=== PATIENT | female | born 1960 | race Caucasian/White ===

== ENCOUNTER 2016-11-15 21:39 | Inpatient (IN) | payer MEDICAID ==
--- NOTE | 2016-11-15 22:19 | ED Physician Chart ---
Chief Complaint/HPI - Patient Information Date Seen:: 11/15/16 Time Seen:: 22:00 Chief Complaint:: cough History of Present Illness:: onset x one day of cough and congestion; no H/As, Neck Pain, C/P, SOB, Abd. Pain , A/N/V/D/C, fever, chills, or urinary s/s Allergies:: Allergies Allergy/AdvReac Type Severity Reaction Status Date / Time No Known Allergies Allergy Verified 11/15/16 22:11 Historian:: Patient, EMS, Medical Records Review:: Nurse's Note Reviewed, Old Chart Reviewed, EMS run form Reviewed Review of Systems - Review of Systems General/Constitutional: Fever, Chills, No weight loss, No weakness, No diaphoresis, No edema, No loss of appetite Skin: No skin lesions, No rash, No bruising Head: No headache, No light-headedness Eyes: No loss of vision, No pain, No diplopia ENT: No earache, Nasal drainage, No sore throat, No tinnitus Neck: No neck pain, No swelling, No thyromegaly, No stiffness, No mass noted Cardio Vascular: No chest pain, No palpitations, No PND, No orthopnea, No edema Pulmonary: No SOB, Cough, No sputum, No wheezing GI: Nausea, Vomiting, Diarrhea, No pain, No melena, No hematochezia, Constipation, No hematemesis G/U: No dysuria, No frequency, No hematuria [employer]: No vaginal discharge, No abnormal vaginal bleed, No contraction Musculoskeletal: No bone or joint pain, No back pain, No muscle pain Endocrine: No polyuria, No polydipsia Psychiatric: No prior psych history, No depression, No anxiety, No suicidal ideation Hematopoietic: No bruising, No lymphadenopathy Allergic/Immuno: No urticaria, No angioedema Neurological: No syncope, No focal symptoms, No weakness, No paresthesia, No headache, No seizure, No dizziness, No confusion, No vertigo Past Medical History - Past Medical History Obtainable: Yes Past Medical History: HTN, CVA/TIA, Dyslipidemia, Other (anemia) Family History: Diabetes Melitus, HTN Social History: Non Smoker, No Alcohol, No Drug Use, Single, Care Facility Surgical History: None Psychiatricy History: Schizophrenia Medication: Reviewed Family Medical History - Family Member Mother History Unknown: Yes Physical Exam - Physical Examination General/Constitutional: Awake, Well-developed, well-nourished, Alert, No distress, GCS 15, Non-toxic appearing, Ambulatory Head: Atraumatic Eyes: Lids, conjuctiva normal, PERRL, EOMI Skin: Nl inspection, No rash, No skin lesions, No ecchymosis, Well hydrated, No lymphadenopathy ENMT: External ears, nose nl, Nasal exam nl, Lips, teeth, gums nl Neck: Nontender, Full ROM w/o pain, No JVD, No nuchal rigidity, No bruit, No mass, No stridor Respiratory: Nl effort/Exclusion, Clear to Auscultation, No Wheeze/Rhonchi/Rales Cardio Vascular: RRR, No murmur, gallop, rubs, NL S1 S2 GI: No tenderness/rebounding/guarding, No organomegaly, No hernia, Normal BS's, Nondistended, No mass/bruits, No McBurney tenderness : No CVA tenderness Extremities: No tenderness or effusion, Full ROM, normal strength in all extremities, No edema, Normal digits & nails Neuro/Psych: Alert/oriented, DTR's symmetric, Normal sensory exam, Normal motor strength, Judgement/insight normal, Mood normal, Normal gait, No focal deficits Misc: normal gait, Normal back, No paraspinal tenderness Labs/Radiology/EKG Results - Lab Results Results: H/H: 5.8/19.7 - EKG Interpretations EKG Time:: 22:40 Rate & Rhythm: 102; ST Comments:: non-specific st-t changes ED Septic Shock - . Is Septic Shock (SBP<90, OR Lactate>4 mmol\L) present?: No Reassessment (Disposition) - Reassessment Reassessment Condition:: Improved - Diagnosis Diagnosis:: Anemia; R/O Blled; CVA - Aftercare/Follow up Instructions Aftercare/Follow-Up Instructions:: Counseled pt regarding lab results/diagnosis & need follow up, Counseled pt & family regarding lab results/diagnosis & need follow up - Patient Disposition Discharge/Transfer:: Acute Care w/in this hosp Accepting Physician:: Dr. Coppola Time Called:: [id number] Time Responded:: 23:35 Admitted to:: Telemetry Spoke to:: Dr. Coppola Admitting Medical Physician:: Dr. Coppola Condition at Disposition:: Stable, Improved
[2016-11-15 22:40] LABS: MEAN CORPUSCULAR HEMOGLOBIN 14.6 pg (27.0-31.0); MEAN CORPUSCULAR HGB CONC 29.2 pg (28.0-36.0); MEAN PLATELET VOLUME 8.4 fl; PLATELET COUNT 404 Th/cmm (150-400); RED BLOOD COUNT 3.94 Mil/cmm (3.80-5.10); RED CELL DISTRIBUTION WIDTH 25.6 % (11.5-20.0); WHITE BLOOD COUNT 10.1 Th/cmm (4.8-10.8)
[2016-11-15 22:49] LABS: HEMATOCRIT 19.7 % (35.0-45.0); HEMOGLOBIN 5.8 gm/dL (11.7-15.5)
[2016-11-15 22:55] LABS: TROP I 0.01 ng/mL (0.01-0.05)
[2016-11-15 22:57] LABS: ALB/GLOB RATIO 1.2 (1.0-1.8); ALKALINE PHOSPHATASE 110 U/L (34-104); ANION GAP 6.6 (7.0-16.0); BILIRUBIN,TOTAL 0.5 mg/dL (0.3-1.0); BUN - UREA NITROGEN 15 mg/dL (7-25); CALCIUM SERUM 9.1 mg/dL (8.6-10.3); CARBON DIOXIDE 29.3 mEq/L (21.0-31.0); CHLORIDE 100 mEq/L (98-107); CHOLESTEROL 97 mg/dL (<200); CREATININE - SERUM 0.5 mg/dL (0.6-1.2); GLUCOSE 111 mg/dL (70-105); POTASSIUM SERUM 3.9 mEq/L (3.5-5.1); SGOT 26 U/L (13-39); SGPT/ALT 30 U/L (7-52); SODIUM SERUM 132 mEq/L (136-145); TRIGLYCERIDES 142 mg/dL (<150)
[2016-11-15 23:13] LABS: PROTHROMBIN TIME (TEST) 10.4 SECONDS (9.5-11.5)
[2016-11-15 23:26] LABS: ANISOCYTOSIS 2+; BAND NEUTROPHILE 3 % (0-10); HYPOCHROMIA 1+; MICROCYTOSIS 2+; NEUTROPHILS 70 % (40-80); PLATELET ESTIMATE ADEQUATE (NORMAL); POIKILOCYTOSIS 1+; POLYCHROMASIA 1+; TOTAL CELLS COUNTED 100
[2016-11-15 23:28] LABS: ROULEAUX 2+
[2016-11-15] MEDS ORDERED: Magnesium Hydroxide (MOM) 30 mL UDC PO PRN (23:47)
[2016-11-15] MEDS ORDERED: guaiFENesin 200 MG/10 ML UDC PO PRN (23:48)
[2016-11-15] MEDS ORDERED: Albuterol Nebulizer 2.5mg/3mL HHN PRN (23:48)
[2016-11-16 03:05] VITALS: BP 110/72
[2016-11-16] MEDS ORDERED: HYPROMELLOSE EACH EYE SCH (09:00)
--- NOTE | 2016-11-16 09:31 | Diagnostic Imaging Report ---
Portable chest x-ray HISTORY: Cough The heart size is difficult to assess with portable technique in a poor inspiration. The poor inspiration has resulted in accentuation of the lower interstitial lung markings. Allowing for this factor, no definite focal processes are seen. IMPRESSION: 1. Allowing for a poor inspiration, no acute focal pulmonary processes.
--- NOTE | 2016-11-16 12:39 | Internal Medicine Prog Note ---
Internal Medicine Subjective - Subjective Service Date: 11/16/16 ([facility] [id number]) Internal Medicine Objective - Results Result Diagrams: 11/15/16 22:30 11/15/16 22:30 Recent Labs: Laboratory Last Values WBC 10.1 Th/cmm (4.8-10.8) D 11/15/16 22:30 RBC 3.94 Mil/cmm (3.80-5.10) 11/15/16 22:30 Hgb 5.8 gm/dL (11.7-15.5) L* 11/15/16 22:30 Hct 19.7 % (35.0-45.0) L* D 11/15/16 22:30 MCV 50.0 fl (81-100) L 11/15/16 22:30 MCH 14.6 pg (27.0-31.0) L 11/15/16 22:30 MCHC Differential 29.2 pg (28.0-36.0) 11/15/16 22:30 RDW 25.6 % (11.5-20.0) H 11/15/16 22:30 Plt Count 404 Th/cmm (150-400) H 11/15/16 22:30 MPV 8.4 fl 11/15/16 22:30 Band Neutrophils % 3 % (0-10) 11/15/16 22:30 Neutrophils (Manual) 70 % (40-80) 11/15/16 22:30 Lymphocytes 25 % (20-50) 11/15/16 22:30 Monocytes 2 % (2-10) 11/15/16 22:30 Hypochromia 1+ 11/15/16 22:30 Platelet Estimate ADEQUATE (NORMAL) 11/15/16 22:30 Polychromasia 1+ 11/15/16 22:30 Poikilocytosis 1+ 11/15/16 22:30 Anisocytosis 2+ 11/15/16 22:30 Microcytosis 2+ 11/15/16 22:30 Rouleaux 2+ 11/15/16 22:30 PT 10.4 SECONDS (9.5-11.5) 11/15/16 22:30 INR 1.00 (0.5-1.4) 11/15/16 22:30 PTT (Actin FS) 22.3 SECONDS (26.0-38.0) L 11/15/16 22:30 Sodium 132 mEq/L (136-145) L 11/15/16 22:30 Potassium 3.9 mEq/L (3.5-5.1) 11/15/16 22:30 Chloride 100 mEq/L (98-107) 11/15/16 22:30 Carbon Dioxide 29.3 mEq/L (21.0-31.0) 11/15/16 22:30 Anion Gap 6.6 (7.0-16.0) L 11/15/16 22:30 BUN 15 mg/dL (7-25) 11/15/16 22:30 Creatinine 0.5 mg/dL (0.6-1.2) L 11/15/16 22:30 Est GFR ( Amer) > 60.0 ml/min (>90) 11/15/16 22:30 Est GFR (Non-Af Amer) > 60.0 ml/min 11/15/16 22:30 BUN/Creatinine Ratio 30.0 11/15/16 22:30 Glucose 111 mg/dL (70-105) H 11/15/16 22:30 Whole Bld Lactic Acid 1.26 mmol/L (0.60-1.99) 11/15/16 22:30 Calcium 9.1 mg/dL (8.6-10.3) 11/15/16:30 Total Bilirubin 0.5 mg/dL (0.3-1.0) 11/15/16 22:30 AST 26 U/L (13-39) 11/15/16 22:30 ALT 30 U/L (7-52) 11/15/16 22:30 Alkaline Phosphatase 110 U/L (34-104) H 11/15/16 22:30 Creatine Kinase 34 U/L (30-223) 11/15/16 22:30 Troponin I 0.01 ng/mL (0.01-0.05) 11/15/16 22:30 B-Natriuretic Peptide 35.0 pg/mL (5.0-100.0) 11/15/16 22:30 Total Protein 7.1 gm/dL (6.0-8.3) 11/15/16 22:30 Albumin 3.8 gm/dL (3.7-5.3) 11/15/16 22:30 Globulin 3.3 gm/dL 11/15/16 22:30 Albumin/Globulin Ratio 1.2 (1.0-1.8) 11/15/16 22:30 Triglycerides 142 mg/dL (<150) 11/15/16 22:30 Cholesterol 97 mg/dL (<200) 11/15/16 22:30 LDL Cholesterol Direct 56 mg/dL (75-193) L 11/15/16 22:30 HDL Cholesterol 34 mg/dL (23-92) 11/15/16 22:30 Serum , Qual NEGATIVE (NEGATIVE) 11/15/16 22:30 Blood Type O POSITIVE 11/15/16 22:52 Antibody Screen NEGATIVE 11/15/16 22:52 Crossmatch See Detail 11/15/16 22:52 - Physical Exam Vitals and I&O: Vital Signs Temp 98.0 F 11/16/16 04:00 Pulse 101 11/16/16 06:53 Resp 20 11/16/16 06:53 BP 100/68 11/16/16 04:00 Pulse Ox 97 11/16/16 06:53 Intake & Output 11/15/16 11/16/16 11/16/16 18:59 06:59 18:59 Intake Total 300 Balance 300 Weight (lbs) 153 lb 11.2 oz Intake: Blood Product 300 Other: # Voids 1 # Bowel Movements 0 Active Medications: Current Medications Acetaminophen (Tylenol) 650 mg PO Q6HR PRN PRN Reason: Pain or Fever >101 Stop: 01/14/17 23:46 Albuterol Sulfate (Albuterol 2.5mg/3ml Neb Ud) 2.5 mg HHN Q2H PRN PRN Reason: Shortness of Breath or Wheeze Stop: 01/14/17 23:47 Artificial Tears (Artificial Tears Ophth Soln) 1 drop EACH EYE BID KATIE Stop: 01/15/17 16:59 Benztropine Mesylate (Cogentin) 0.5 mg PO BID KATIE Stop: 01/15/17 08:59 Last Admin: 11/16/16 10:49 Dose: 0.5 mg Bisacodyl (Dulcolax 10 Mg Supp) 10 mg RC DAILY PRN PRN Reason: Constipation Stop: 01/14/17 23:46 Docusate Sodium (Colace) 100 mg PO DAILY KATIE Stop: 01/15/17 08:59 Last Admin: 11/16/16 10:49 Dose: 100 mg Guaifenesin (Robitussin) 200 mg PO Q4HR PRN PRN Reason: Cough or Congestion Stop: 01/14/17 23:47 Dextrose/Sodium Chloride (D5-0.9%Ns) 1,000 mls @ 80 mls/hr IV .[id number] KATIE Stop: 01/14/17 23:44 Magnesium Hydroxide (Milk Of Magnesia) 30 ml PO DAILY PRN PRN Reason: Constipation Stop: 01/14/17 23:46 Ondansetron HCl (Zofran) 4 mg IV Q8H PRN PRN Reason: Nausea / Vomiting Stop: 01/14/17 23:47 Pantoprazole Sodium (Protonix) 40 mg IVP BID KATIE Stop: 01/15/17 08:59 Last Admin: 11/16/16 10:49 Dose: 40 mg Risperidone (Risperdal) 0.5 mg PO BID KATIE PRN Reason: Protocol Stop: 01/15/17 08:59 Last Admin: 11/16/16 10:49 Dose: 0.5 mg Simvastatin (Zocor) 40 mg PO HS KATIE PRN Reason: Protocol Stop: 01/15/17 20:59 Zolpidem Tartrate (Ambien) 10 mg PO HS PRN PRN Reason: Insomnia Stop: 01/14/17 23:47 - Procedures Procedures: Procedures Procedure Code Date BLOOD TRANSFUSION SERVICE 27530 09/03/15 EGD BIOPSY SINGLE/MULTIPLE 06903 09/03/15 EXCISION OF SMALL INTESTINE, ENDO, DIAGN [id number] 09/03/15 TRANSFUSE NONAUT RED BLOOD CELLS IN PERIPH VEIN, PERC 07586I9 09/03/15 Internal Medicine Assmt/Plan - Assessment Assessment: SEVERE ANEMIA GERD HYPERLIPIDEMIA CATARACT PSYCHOSIS HEMIPLEGIA GENERALIZED WEAKNESS
--- NOTE | 2016-11-16 13:36 | History & Physical ---
ADMIT DATE: 11/16/2016 CHIEF COMPLAINT: Cough. HISTORY OF PRESENT ILLNESS: This is a 56-year-old female who is a resident of [facility] who is brought here to [facility] for 1-day history of cough and congestion associated with shortness of breath. The patient denies any fevers, any chills. When the patient was in the ER, the patient's H and H was noted to be 5.8 and 19.7. The patient was transfused with 2 units of PRBCs and also a chest x-ray was obtained and the impression is ____ poor inspiration, no acute focal pulmonary processes. PAST MEDICAL HISTORY: Anemia, hemiplegia, hyperlipidemia, psychosis, GERD, cataracts. PAST SURGICAL HISTORY: Unknown. FAMILY HISTORY: Noncontributory. SOCIAL HISTORY: The patient is a senior living resident, requiring 24-hour nursing care. REVIEW OF SYSTEMS: GENERAL: Denies any fevers, any chills, but complains of weakness. HEENT: Denies any headaches. RESPIRATORY: Denies any shortness of breath, but complains of cough at this time. CARDIOVASCULAR: Denies any chest pain. GASTROINTESTINAL: Denies any nausea, vomiting, abdominal pain. GENITOURINARY: Denies any dysuria. All other systems are reviewed by me and are negative. PHYSICAL EXAMINATION: EXTREMITIES: The patient is well developed, well nourished, no acute distress. VITAL SIGNS: Temperature 98.0, heart rate 98, blood pressure 168, respirations 20, O2 97%. HEENT: Head; normocephalic, atraumatic. NECK: Supple. No mass. LUNGS: Few rhonchi bilaterally. HEART: Regular rate and rhythm. ABDOMEN: Soft, nontender. LABORATORY DATA: WBC 10.1, H and H 5.8 and 19.7, platelet of 404. Sodium 132, potassium 3.9, chloride 100, BUN 15, creatinine 0.5. ASSESSMENT: 1. Severe anemia. 2. Cough and congestion. 3. Gastroesophageal reflux disease. 4. Hyperlipidemia. 5. Cataract. 6. Hemiplegia. PLAN: The patient to be admitted to the telemetry unit. The patient will have consultation with GI. The patient will be kept on IV fluids for hydration, supplemental oxygen as needed and also bronchodilators as needed. We will monitor patient's H and H and continue to monitor the patient. [facility]# [id number]
[2016-11-16 15:14] LABS: % BASOPHILS 0.4 % (0.0-2.0); % EOSINOPHILS 1.2 % (0.0-5.0); % MONOCYTES 10.2 % (2.0-10.0); % NEUTROPHILS 69.2 % (40.0-80.0); HEMATOCRIT 28.4 % (35.0-45.0); MEAN CORPUSCULAR HEMOGLOBIN 18.3 pg (27.0-31.0); MEAN CORPUSCULAR HGB CONC 30.6 pg (28.0-36.0); MEAN PLATELET VOLUME 7.1 fl; NEUTROPHILE ABSOLUTE 5.4 Th/cmm (1.8-8.0); PLATELET COUNT 342 Th/cmm (150-400); RED BLOOD COUNT 4.75 Mil/cmm (3.80-5.10); RED CELL DISTRIBUTION WIDTH 36.1 % (11.5-20.0)
[2016-11-16 15:23] LABS: HEMOGLOBIN 8.7 gm/dL (11.7-15.5); MEAN CELL VOLUME 59.8 fl (81-100); WHITE BLOOD COUNT 7.8 Th/cmm (4.8-10.8)
[2016-11-16] MEDS: Polyvinyl Alcohol Ophth Soln 15 mL Bottle EACH EYE SCH (18:16)
--- NOTE | 2016-11-17 01:42 | Consultation ---
DATE OF CONSULTATION: 11/16/2016 INPATIENT GASTROINTESTINAL CONSULTATION REFERRING PHYSICIAN: Dr. Coppola. REASON FOR CONSULTATION: Anemia. HISTORY OF PRESENT ILLNESS: This is a 56-year-old female with mental challenges, who was brought into the hospital with cough and congestion and was found to be anemic. The patient denies having any GI bleeding. Denies melena, hematochezia, hematemesis, or coffee ground emesis. The patient in fact was eating. PAST MEDICAL HISTORY: Hypertension, stroke, TIA: Hyperlipidemia. PAST SURGICAL HISTORY: None to add recently. FAMILY HISTORY: Noncontributory. SOCIAL HISTORY: No tobacco, alcohol or IV drug usage. ALLERGIES: None. CURRENT MEDICATIONS: Tylenol, Cogentin, Colace, Robitussin, milk of magnesia, Zofran, Protonix, Risperdal, Zocor, Ambien. REVIEW OF SYSTEMS: Ten point review of system was performed. The pertinent positive was shortness of breath. All systems were otherwise negative. PHYSICAL EXAMINATION: VITAL SIGNS: Temperature 98, breathing 20, pulse of 101, blood pressure is 100/68, satting 97%. GENERAL: In no apparent distress. EYES: Anicteric. HEENT: Atraumatic. NECK: Soft, supple. CHEST: Coarse breath sounds. CARDIOVASCULAR: Regular rate and rhythm. ABDOMEN: Soft, nontender, nondistended. SKIN: Warm, dry. EXTREMITIES: Reveal no cyanosis. LABORATORY DATA: Show white count 10.1, hemoglobin 5.8, MCV of 50, platelets not reported, INR is 1, BUN 15, creatinine ____, test was negative. IMPRESSION: A 56-year-old female with microcytic anemia, no overt GI bleeding. The patient states she had anemia workup last year including endoscopy, colonoscopy, we will try to get records. MCV being low, could also be a sign of iron deficiency versus thalassemia. PLAN: 1.Check hemoglobin electrophoresis. 2.Check iron panel. 3.Get records of EGD and colonoscopy. 4.Follow H and H and transfuse as needed. Thank you for allowing me to participate. Please call me if any questions. JOB# [id number]
[2016-11-17 06:03] LABS: HEMATOCRIT 27.8 % (35.0-45.0); HEMOGLOBIN 8.5 gm/dL (11.7-15.5); MEAN CORPUSCULAR HEMOGLOBIN 18.2 pg (27.0-31.0); MEAN CORPUSCULAR HGB CONC 30.4 pg (28.0-36.0); MEAN PLATELET VOLUME 8.1 fl; PLATELET COUNT 347 Th/cmm (150-400); RED BLOOD COUNT 4.65 Mil/cmm (3.80-5.10); RED CELL DISTRIBUTION WIDTH 36.3 % (11.5-20.0); WHITE BLOOD COUNT 9.3 Th/cmm (4.8-10.8)
[2016-11-17 06:09] LABS: ANION GAP 6.7 (7.0-16.0); BUN - UREA NITROGEN 13 mg/dL (7-25); CALCIUM SERUM 8.5 mg/dL (8.6-10.3); CARBON DIOXIDE 30.2 mEq/L (21.0-31.0); CHLORIDE 105 mEq/L (98-107); CREATININE - SERUM 0.5 mg/dL (0.6-1.2); GLUCOSE 119 mg/dL (70-105); POTASSIUM SERUM 3.9 mEq/L (3.5-5.1); SODIUM SERUM 138 mEq/L (136-145)
[2016-11-17 06:19] LABS: MEAN CELL VOLUME 59.8 fl (81-100)
[2016-11-17 06:42] LABS: BAND NEUTROPHILE 2 % (0-10); EOSINOPHIL 2 % (0-5); NEUTROPHILS 69 % (40-80); TOTAL CELLS COUNTED 100
[2016-11-17 06:43] LABS: ANISOCYTOSIS 2+; MICROCYTOSIS 2+; PLATELET ESTIMATE ADEQUATE (NORMAL); POLYCHROMASIA 1+
[2016-11-17 08:14] LABS: IRON SATURATION 3 % (15-55); TIBC (LCI) 496 ug/dL (250-450); UIBC 483 ug/dL (131-425)
[2016-11-17] MEDS: Polyvinyl Alcohol Ophth Soln 15 mL Bottle EACH EYE SCH ×2 (09:59→17:08)
[2016-11-17] MEDS: D5-0.9%NS 1,000 ML IV SCH (11:02)
[2016-11-17 11:12] LABS: FOLIC ACID 12.7 ng/mL (>3.0)
--- NOTE | 2016-11-17 11:35 | Internal Medicine Prog Note ---
Internal Medicine Subjective - Subjective Service Date: 11/17/16 Patient seen and examined:: with staff Patient is:: awake Patient Complaints of:: congestion Per staff patient has:: no adverse event Internal Medicine Objective - Results Result Diagrams: 11/17/16 05:19 11/17/16 05:19 Recent Labs: Laboratory Last Values WBC 9.3 Th/cmm (4.8-10.8) 11/17/16 05:19 RBC 4.65 Mil/cmm (3.80-5.10) 11/17/16 05:19 Hgb 8.5 gm/dL (11.7-15.5) L 11/17/16 05:19 Hct 27.8 % (35.0-45.0) L 11/17/16 05:19 MCV 59.8 fl (81-100) L 11/17/16 05:19 MCH 18.2 pg (27.0-31.0) L 11/17/16 05:19 MCHC Differential 30.4 pg (28.0-36.0) 11/17/16 05:19 RDW 36.3 % (11.5-20.0) H 11/17/16 05:19 Plt Count 347 Th/cmm (150-400) 11/17/16 05:19 MPV 8.1 fl 11/17/16 05:19 Neutrophils % 69.2 % (40.0-80.0) 11/16/16 15:00 Band Neutrophils % 2 % (0-10) 11/17/16 05:19 Lymphocytes % 19.0 % (20.0-50.0) L 11/16/16 15:00 Monocytes % 10.2 % (2.0-10.0) H 11/16/16 15:00 Eosinophils % 1.2 % (0.0-5.0) 11/16/16 15:00 Basophils % 0.4 % (0.0-2.0) 11/16/16 15:00 Neutrophils (Manual) 69 % (40-80) 11/17/16 05:19 Lymphocytes 20 % (20-50) 11/17/16 05:19 Monocytes 6 % (2-10) 11/17/16 05:19 Eosinophils 2 % (0-5) 11/17/16 05:19 Nucleated RBCs 3.0 % (0-0) H 11/17/16 05:19 Atypical Lymphocytes 1 % 11/17/16 05:19 Hypochromia 1+ 11/15/16 22:30 Platelet Estimate ADEQUATE (NORMAL) 11/17/16 05:19 Polychromasia 1+ 11/17/16 05:19 Poikilocytosis 1+ 11/15/16 22:30 Anisocytosis 2+ 11/17/16 05:19 Microcytosis 2+ 11/17/16 05:19 Rouleaux 2+ 11/15/16 22:30 RBC Morph Micro Appear ABNORMAL (NORMAL) 11/17/16 05:19 PT 10.4 SECONDS (9.5-11.5) 11/15/16 22:30 INR 1.00 (0.5-1.4) 11/15/16 22:30 PTT (Actin FS) 22.3 SECONDS (26.0-38.0) L 11/15/16 22:30 Sodium 138 mEq/L (136-145) 11/17/16 05:19 Potassium 3.9 mEq/L (3.5-5.1) 11/17/16 05:19 Chloride 105 mEq/L (98-107) 11/17/16 05:19 Carbon Dioxide 30.2 mEq/L (21.0-31.0) 11/17/16 05:19 Anion Gap 6.7 (7.0-16.0) L 11/17/16 05:19 BUN 13 mg/dL (7-25) 11/17/16 05:19 Creatinine 0.5 mg/dL (0.6-1.2) L 11/17/16 05:19 Est GFR ( Amer) > 60.0 ml/min (>90) 11/17/16 05:19 Est GFR (Non-Af Amer) > 60.0 ml/min 11/17/16 05:19 BUN/Creatinine Ratio 26.0 11/17/16 05:19 Glucose 119 mg/dL (70-105) H 11/17/16 05:19 Whole Bld Lactic Acid 1.26 mmol/L (0.60-1.99) 11/15/16 22:30 Calcium 8.5 mg/dL (8.6-10.3) L 11/17/16 05:19 Iron 13 ug/dL (27-159) L 11/15/16 22:30 TIBC 496 ug/dL (250-450) H 11/15/16 22:30 Iron Saturation 3 % (15-55) L 11/15/16 22:30 Unsaturated IBC 483 ug/dL (131-425) H 11/15/16 22:30 Ferritin 6 ng/mL (15-150) L 11/15/16 22:30 Total Bilirubin 0.5 mg/dL (0.3-1.0) 11/15/16 22:30 AST 26 U/L (13-39) 11/15/16 22:30 ALT 30 U/L (7-52) 11/15/16 22:30 Alkaline Phosphatase 110 U/L (34-104) H 11/15/16 22:30 Ammonia 57 umol/L (16-53) H 11/16/16 15:00 Creatine Kinase 34 U/L (30-223) 11/15/16 22:30 Troponin I 0.01 ng/mL (0.01-0.05) 11/15/16 22:30 B-Natriuretic Peptide 35.0 pg/mL (5.0-100.0) 11/15/16 22:30 Total Protein 7.1 gm/dL (6.0-8.3) 11/15/16 22:30 Albumin 3.8 gm/dL (3.7-5.3) 11/15/16 22:30 Globulin 3.3 gm/dL 11/15/16 22:30 Albumin/Globulin Ratio 1.2 (1.0-1.8) 11/15/16 22:30 Triglycerides 142 mg/dL (<150) 11/15/16 22:30 Cholesterol 97 mg/dL (<200) 11/15/16 22:30 LDL Cholesterol Direct 56 mg/dL (75-193) L 11/15/16 22:30 HDL Cholesterol 34 mg/dL (23-92) 11/15/16 22:30 Vitamin B12 394 pg/mL (211-946) 11/16/16 15:00 Folic Acid 12.7 ng/mL (>3.0) 11/16/16 15:00 Serum , Qual NEGATIVE (NEGATIVE) 11/15/16 22:30 Blood Type O POSITIVE 11/15/16 22:52 Antibody Screen NEGATIVE 11/15/16 22:52 Crossmatch See Detail 11/15/16 22:52 - Physical Exam Vitals and I&O: Vital Signs Temp 97.9 F 11/17/16 08:00 Pulse 99 11/17/16 08:00 Resp 18 11/17/16 08:00 BP 122/72 11/17/16 08:00 Pulse Ox 97 11/17/16 08:00 Intake & Output 11/16/16 11/17/16 11/17/16 18:59 06:59 18:59 Weight (lbs) 153 lb 11.2 oz 153 lb 1.6 oz Other: # Voids 3 3 # Bowel Movements 0 Active Medications: Current Medications Acetaminophen (Tylenol) 650 mg PO Q6HR PRN PRN Reason: Pain or Fever >101 Stop: 01/14/17 23:46 Albuterol Sulfate (Albuterol 2.5mg/3ml Neb Ud) 2.5 mg HHN Q2H PRN PRN Reason: Shortness of Breath or Wheeze Stop: 01/14/17 23:47 Artificial Tears (Artificial Tears Ophth Soln) 1 drop EACH EYE BID [facility] Stop: 01/15/17 16:59 Last Admin: 11/17/16 09:59 Dose: 1 drop Benztropine Mesylate (Cogentin) 0.5 mg PO BID [facility] Stop: 01/15/17 08:59 Last Admin: 11/17/16 10:00 Dose: 0.5 mg Bisacodyl (Dulcolax 10 Mg Supp) 10 mg RC DAILY PRN PRN Reason: Constipation Stop: 01/14/17 23:46 Docusate Sodium (Colace) 100 mg PO DAILY [facility] Stop: 01/15/17 08:59 Last Admin: 11/17/16 09:59 Dose: 100 mg Guaifenesin (Robitussin) 200 mg PO Q4HR PRN PRN Reason: Cough or Congestion Stop: 01/14/17 23:47 Dextrose/Sodium Chloride (D5-0.9%Ns) 1,000 mls @ 80 mls/hr IV .[id number] [facility] Stop: 01/14/17 23:44 Last Admin: 11/17/16 11:02 Dose: 80 mls/hr Magnesium Hydroxide (Milk Of Magnesia) 30 ml PO DAILY PRN PRN Reason: Constipation Stop: 01/14/17 23:46 Ondansetron HCl (Zofran) 4 mg IV Q8H PRN PRN Reason: Nausea / Vomiting Stop: 01/14/17 23:47 Pantoprazole Sodium (Protonix) 40 mg IVP BID KATIE Stop: 01/15/17 08:59 Last Admin: 11/17/16 10:21 Dose: Not Given Risperidone (Risperdal) 0.5 mg PO BID KATIE PRN Reason: Protocol Stop: 01/15/17 08:59 Last Admin: 11/17/16 09:59 Dose: 0.5 mg Simvastatin (Zocor) 40 mg PO HS KATIE PRN Reason: Protocol Stop: 01/15/17 20:59 Last Admin: 11/16/16 22:25 Dose: 40 mg Zolpidem Tartrate (Ambien) 10 mg PO HS PRN PRN Reason: Insomnia Stop: 01/14/17 23:47 General: weak, alert HEENT: NC/AT, PERRLA Neck: Supple Lungs: congested Cardiovascular: RRR, Normal S1, Normal S2, without murmur Abdomen: soft, non-tender, non-distended Extremities: excoriation Neurological: alert - Procedures Procedures: Procedures Procedure Code Date BLOOD TRANSFUSION SERVICE 10198 11/15/16 EGD BIOPSY SINGLE/MULTIPLE 01502 09/03/15 EXCISION OF SMALL INTESTINE, ENDO, DIAGN [id number] 09/03/15 TRANSFUSE NONAUT RED BLOOD CELLS IN PERIPH VEIN, PERC 09302L6 11/15/16 Internal Medicine Assmt/Plan - Assessment Assessment: SEVERE ANEMIA GERD HYPERLIPIDEMIA CATARACT PSYCHOSIS HEMIPLEGIA GENERALIZED WEAKNESS - Plan Plan: monitor h/h ivf for hydration am labs stool ob to be collected. continue current plan of care
[2016-11-17] MEDS: Sodium Ferric Gluconate 125 MG in Sodium Chloride 0.9% 100 ML IV SCH (15:24)
[2016-11-17 17:15] LABS: CA 15-3 AG (BREAST) 17.8 U/mL (0.0-25.0)
[2016-11-18] MEDS: D5-0.9%NS 1,000 ML IV SCH ×2 (01:32→15:51)
[2016-11-18 06:36] LABS: HEMOGLOBIN 9.1 gm/dL (11.7-15.5); MEAN CORPUSCULAR HEMOGLOBIN 18.3 pg (27.0-31.0); MEAN CORPUSCULAR HGB CONC 29.7 pg (28.0-36.0); MEAN PLATELET VOLUME 8.5 fl; PLATELET COUNT 346 Th/cmm (150-400); RED BLOOD COUNT 4.99 Mil/cmm (3.80-5.10); RED CELL DISTRIBUTION WIDTH 35.7 % (11.5-20.0); WHITE BLOOD COUNT 8.3 Th/cmm (4.8-10.8)
[2016-11-18 06:47] LABS: HEMATOCRIT 30.6 % (35.0-45.0); MEAN CELL VOLUME 61.4 fl (81-100)
[2016-11-18 06:52] LABS: ANION GAP 6.2 (7.0-16.0); BUN - UREA NITROGEN 8 mg/dL (7-25); CALCIUM SERUM 8.6 mg/dL (8.6-10.3); CARBON DIOXIDE 29.6 mEq/L (21.0-31.0); CHLORIDE 105 mEq/L (98-107); CREATININE - SERUM 0.5 mg/dL (0.6-1.2); GLUCOSE 118 mg/dL (70-105); POTASSIUM SERUM 3.8 mEq/L (3.5-5.1); SODIUM SERUM 137 mEq/L (136-145)
[2016-11-18] MEDS: Albuterol Nebulizer 2.5mg/3mL HHN PRN (07:55)
[2016-11-18 08:37] LABS: BAND NEUTROPHILE 2 % (0-10); EOSINOPHIL 3 % (0-5); METAMYELOCYTE 1 % (0-0); NEUTROPHILS 64 % (40-80); TOTAL CELLS COUNTED 100
[2016-11-18 08:38] LABS: ANISOCYTOSIS 3+; MICROCYTOSIS 3+; PLATELET ESTIMATE ADEQUATE (NORMAL); PLATELET MORPHOLOGY NORMAL (NORMAL); POLYCHROMASIA 2+
[2016-11-18] MEDS: Polyvinyl Alcohol Ophth Soln 15 mL Bottle EACH EYE SCH ×2 (08:59→16:06)
--- NOTE | 2016-11-18 11:16 | Internal Medicine Prog Note ---
Internal Medicine Subjective - Subjective Service Date: 11/18/16 Patient is:: awake Patient Complaints of:: congestion Per staff patient has:: no adverse event Internal Medicine Objective - Results Result Diagrams: 11/18/16 05:54 11/18/16 05:54 Recent Labs: Laboratory Last Values WBC 8.3 Th/cmm (4.8-10.8) 11/18/16 05:54 RBC 4.99 Mil/cmm (3.80-5.10) 11/18/16 05:54 Hgb 9.1 gm/dL (11.7-15.5) L 11/18/16 05:54 Hct 30.6 % (35.0-45.0) L D 11/18/16 05:54 MCV 61.4 fl (81-100) L 11/18/16 05:54 MCH 18.3 pg (27.0-31.0) L 11/18/16 05:54 MCHC Differential 29.7 pg (28.0-36.0) 11/18/16 05:54 RDW 35.7 % (11.5-20.0) H 11/18/16 05:54 Plt Count 346 Th/cmm (150-400) 11/18/16 05:54 MPV 8.5 fl 11/18/16 05:54 Neutrophils % 69.2 % (40.0-80.0) 11/16/16 15:00 Band Neutrophils % 2 % (0-10) 11/18/16 05:54 Lymphocytes % 19.0 % (20.0-50.0) L 11/16/16 15:00 Monocytes % 10.2 % (2.0-10.0) H 11/16/16 15:00 Eosinophils % 1.2 % (0.0-5.0) 11/16/16 15:00 Basophils % 0.4 % (0.0-2.0) 11/16/16 15:00 Neutrophils (Manual) 64 % (40-80) 11/18/16 05:54 Lymphocytes 20 % (20-50) 11/18/16 05:54 Monocytes 9 % (2-10) 11/18/16 05:54 Eosinophils 3 % (0-5) 11/18/16 05:54 Metamyelocytes 1 % (0-0) H 11/18/16 05:54 Nucleated RBCs 3.0 % (0-0) H 11/17/16 05:19 Atypical Lymphocytes 1 % 11/18/16 05:54 Hypochromia 1+ 11/15/16 22:30 Platelet Estimate ADEQUATE (NORMAL) 11/18/16 05:54 Platelet Morphology NORMAL (NORMAL) 11/18/16 05:54 Polychromasia 2+ 11/18/16 05:54 Poikilocytosis 1+ 11/15/16 22:30 Anisocytosis 3+ 11/18/16 05:54 Microcytosis 3+ 11/18/16 05:54 Rouleaux 2+ 11/15/16 22:30 RBC Morph Micro Appear ABNORMAL (NORMAL) 11/18/16 05:54 PT 10.4 SECONDS (9.5-11.5) 11/15/16 22:30 INR 1.00 (0.5-1.4) 11/15/16 22:30 PTT (Actin FS) 22.3 SECONDS (26.0-38.0) L 11/15/16 22:30 Sodium 137 mEq/L (136-145) 11/18/16 05:54 Potassium 3.8 mEq/L (3.5-5.1) 11/18/16 05:54 Chloride 105 mEq/L (98-107) 11/18/16 05:54 Carbon Dioxide 29.6 mEq/L (21.0-31.0) 11/18/16 05:54 Anion Gap 6.2 (7.0-16.0) L 11/18/16 05:54 BUN 8 mg/dL (7-25) 11/18/16 05:54 Creatinine 0.5 mg/dL (0.6-1.2) L 11/18/16 05:54 Est GFR ( Amer) > 60.0 ml/min (>90) 11/18/16 05:54 Est GFR (Non-Af Amer) > 60.0 ml/min 11/18/16 05:54 BUN/Creatinine Ratio 16.0 11/18/16 05:54 Glucose 118 mg/dL (70-105) H 11/18/16 05:54 Whole Bld Lactic Acid 1.26 mmol/L (0.60-1.99) 11/15/16 22:30 Calcium 8.6 mg/dL (8.6-10.3) 11/18/16 05:54 Iron 13 ug/dL (27-159) L 11/15/16 22:30 TIBC 496 ug/dL (250-450) H 11/15/16 22:30 Iron Saturation 3 % (15-55) L 11/15/16 22:30 Unsaturated IBC 483 ug/dL (131-425) H 11/15/16 22:30 Ferritin 6 ng/mL (15-150) L 11/15/16 22:30 Total Bilirubin 0.5 mg/dL (0.3-1.0) 11/15/16 22:30 AST 26 U/L (13-39) 11/15/16 22:30 ALT 30 U/L (7-52) 11/15/16 22:30 Alkaline Phosphatase 110 U/L (34-104) H 11/15/16 22:30 Ammonia 57 umol/L (16-53) H 11/16/16 15:00 Creatine Kinase 34 U/L (30-223) 11/15/16 22:30 Troponin I 0.01 ng/mL (0.01-0.05) 11/15/16 22:30 B-Natriuretic Peptide 35.0 pg/mL (5.0-100.0) 11/15/16 22:30 Total Protein 7.1 gm/dL (6.0-8.3) 11/15/16 22:30 Albumin 3.8 gm/dL (3.7-5.3) 11/15/16 22:30 Globulin 3.3 gm/dL 11/15/16 22:30 Albumin/Globulin Ratio 1.2 (1.0-1.8) 11/15/16 22:30 Triglycerides 142 mg/dL (<150) 11/15/16 22:30 Cholesterol 97 mg/dL (<200) 11/15/16 22:30 LDL Cholesterol Direct 56 mg/dL (75-193) L 11/15/16 22:30 HDL Cholesterol 34 mg/dL (23-92) 11/15/16 22:30 Carcinoembryonic Ag 1.0 ng/mL (0.0-4.7) 11/16/16 15:00 CA 15-3 Antigen 17.8 U/mL (0.0-25.0) 11/16/16 15:00 CA 19-9 Antigen 1 U/mL (0-35) 11/16/16 15:00 CA 27-29 Serial Monitr 8.6 U/mL (0.0-38.6) 11/16/16 15:00 CA 125 Antigen 6.4 U/mL (0.0-38.1) 11/16/16 15:00 Vitamin B12 394 pg/mL (211-946) 11/16/16 15:00 Folic Acid 12.7 ng/mL (>3.0) 11/16/16 15:00 Serum , Qual NEGATIVE (NEGATIVE) 11/15/16 22:30 Blood Type O POSITIVE 11/15/16 22:52 Antibody Screen NEGATIVE 11/15/16 22:52 Crossmatch See Detail 11/15/16 22:52 - Physical Exam Vitals and I&O: Vital Signs Temp 98.0 F 11/18/16 10:58 Pulse 99 11/18/16 10:58 Resp 18 11/18/16 10:58 BP 120/95 11/18/16 10:58 Pulse Ox 100 11/18/16 10:58 Intake & Output 11/17/16 11/18/16 11/18/16 18:59 06:59 18:59 Intake Total 1000 Balance 1000 Weight (lbs) 153 lb 153 lb 6.4 oz Intake: Intake, IV Amount 1000 D5-0.9%Ns 1,000 ml @ 80 1000 mls/hr IV .[id number] [facility] Rx #:[id number] Other: # Voids 4 Active Medications: Current Medications Acetaminophen (Tylenol) 650 mg PO Q6HR PRN PRN Reason: Pain or Fever >101 Stop: 01/14/17 23:46 Albuterol Sulfate (Albuterol 2.5mg/3ml Neb Ud) 2.5 mg HHN Q2H PRN PRN Reason: Shortness of Breath or Wheeze Stop: 01/14/17 23:47 Last Admin: 11/18/16 07:55 Dose: 2.5 mg Artificial Tears (Artificial Tears Ophth Soln) 1 drop EACH EYE BID [facility] Stop: 01/15/17 16:59 Last Admin: 11/18/16 08:59 Dose: 1 drop Benztropine Mesylate (Cogentin) 0.5 mg PO BID [facility] Stop: 01/15/17 08:59 Last Admin: 11/18/16 08:58 Dose: 0.5 mg Bisacodyl (Dulcolax 10 Mg Supp) 10 mg RC DAILY PRN PRN Reason: Constipation Stop: 01/14/17 23:46 Docusate Sodium (Colace) 100 mg PO DAILY [facility] Stop: 01/15/17 08:59 Last Admin: 11/18/16 08:59 Dose: 100 mg Guaifenesin (Robitussin) 200 mg PO Q4HR PRN PRN Reason: Cough or Congestion Stop: 01/14/17 23:47 Dextrose/Sodium Chloride (D5-0.9%Ns) 1,000 mls @ 80 mls/hr IV .[id number] [facility] Stop: 01/14/17 23:44 Last Admin: 11/18/16 01:32 Dose: 80 mls/hr Ferric Sodium Gluconate Complex 125 mg/ Sodium Chloride 110 mls @ 100 mls/hr IV Q24HR [facility] Stop: 11/24/16 14:20 Last Admin: 11/17/16 15:24 Dose: 100 mls/hr Magnesium Hydroxide (Milk Of Magnesia) 30 ml PO DAILY PRN PRN Reason: Constipation Stop: 01/14/17 23:46 Ondansetron HCl (Zofran) 4 mg IV Q8H PRN PRN Reason: Nausea / Vomiting Stop: 01/14/17 23:47 Pantoprazole Sodium (Protonix) 40 mg IVP BID [facility] Stop: 01/15/17 08:59 Last Admin: 11/18/16 08:59 Dose: Not Given Risperidone (Risperdal) 0.5 mg PO BID [facility] PRN Reason: Protocol Stop: 01/15/17 08:59 Last Admin: 11/18/16 08:59 Dose: 0.5 mg Simvastatin (Zocor) 40 mg PO HS [facility] PRN Reason: Protocol Stop: 01/15/17 20:59 Last Admin: 11/17/16 20:25 Dose: 40 mg Zolpidem Tartrate (Ambien) 10 mg PO HS PRN PRN Reason: Insomnia Stop: 01/14/17 23:47 General: weak, alert HEENT: NC/AT, PERRLA Neck: Supple Lungs: congested Cardiovascular: RRR, Normal S1, Normal S2, without murmur Abdomen: soft, non-tender, non-distended Extremities: excoriation Neurological: alert - Procedures Procedures: Procedures Procedure Code Date BLOOD TRANSFUSION SERVICE 19018 11/15/16 EGD BIOPSY SINGLE/MULTIPLE 23017 09/03/15 EXCISION OF SMALL INTESTINE, ENDO, DIAGN [id number] 09/03/15 TRANSFUSE NONAUT RED BLOOD CELLS IN PERIPH VEIN, PERC [id number] 11/15/16 Internal Medicine Assmt/Plan - Assessment Assessment: SEVERE ANEMIA GERD HYPERLIPIDEMIA CATARACT PSYCHOSIS HEMIPLEGIA GENERALIZED WEAKNESS - Plan Plan: barium enema on sunday monitor h/h ivf for hydration am labs stool ob to be collected. continue current plan of care
[2016-11-18] MEDS: Sodium Ferric Gluconate 125 MG in Sodium Chloride 0.9% 100 ML IV SCH (13:40)
[2016-11-18] MEDS: Pantoprazole 40 mg EC Tab PO SCH (16:06)
[2016-11-19] MEDS: D5-0.9%NS 1,000 ML IV SCH ×2 (04:58→19:57)
[2016-11-19] MEDS: Albuterol Nebulizer 2.5mg/3mL HHN PRN (07:20)
[2016-11-19 08:08] LABS: HEMATOCRIT 29.4 % (35.0-45.0); HEMOGLOBIN 8.7 gm/dL (11.7-15.5); MEAN CORPUSCULAR HEMOGLOBIN 18.1 pg (27.0-31.0); MEAN CORPUSCULAR HGB CONC 29.5 pg (28.0-36.0); MEAN PLATELET VOLUME 7.7 fl; PLATELET COUNT 352 Th/cmm (150-400); RED BLOOD COUNT 4.78 Mil/cmm (3.80-5.10); RED CELL DISTRIBUTION WIDTH 34.8 % (11.5-20.0)
[2016-11-19 08:12] LABS: MEAN CELL VOLUME 61.3 fl (81-100); WHITE BLOOD COUNT 10.2 Th/cmm (4.8-10.8)
[2016-11-19 08:28] LABS: ALB/GLOB RATIO 1.1 (1.0-1.8); ALKALINE PHOSPHATASE 118 U/L (34-104); ANION GAP 3.5 (7.0-16.0); BILIRUBIN,TOTAL 0.4 mg/dL (0.3-1.0); BUN - UREA NITROGEN 10 mg/dL (7-25); CALCIUM SERUM 8.6 mg/dL (8.6-10.3); CARBON DIOXIDE 32.1 mEq/L (21.0-31.0); CHLORIDE 104 mEq/L (98-107); CREATININE - SERUM 0.4 mg/dL (0.6-1.2); GLUCOSE 124 mg/dL (70-105); POTASSIUM SERUM 3.6 mEq/L (3.5-5.1); SGOT 22 U/L (13-39); SGPT/ALT 30 U/L (7-52); SODIUM SERUM 136 mEq/L (136-145)
[2016-11-19 09:03] LABS: BAND NEUTROPHILE 4 % (0-10); EOSINOPHIL 2 % (0-5); NEUTROPHILS 79 % (40-80); TOTAL CELLS COUNTED 100
[2016-11-19 09:04] LABS: ANISOCYTOSIS 3+; MICROCYTOSIS 3+; PLATELET ESTIMATE ADEQUATE (NORMAL); PLATELET MORPHOLOGY NORMAL (NORMAL); POLYCHROMASIA 2+
[2016-11-19] MEDS: Pantoprazole 40 mg EC Tab PO SCH ×2 (09:19→16:36)
[2016-11-19] MEDS: Polyvinyl Alcohol Ophth Soln 15 mL Bottle EACH EYE SCH ×2 (09:19→16:36)
[2016-11-19] MEDS: Sodium Ferric Gluconate 125 MG in Sodium Chloride 0.9% 100 ML IV SCH (12:39)
--- NOTE | 2016-11-19 13:12 | Internal Medicine Prog Note ---
Internal Medicine Subjective - Subjective Service Date: 11/19/16 Patient seen and examined:: with staff Patient is:: awake Patient Complaints of:: congestion Per staff patient has:: no adverse event Internal Medicine Objective - Results Result Diagrams: 11/19/16 07:56 11/19/16 07:56 Recent Labs: Laboratory Last Values WBC 10.2 Th/cmm (4.8-10.8) D 11/19/16 07:56 RBC 4.78 Mil/cmm (3.80-5.10) 11/19/16 07:56 Hgb 8.7 gm/dL (11.7-15.5) L 11/19/16 07:56 Hct 29.4 % (35.0-45.0) L 11/19/16 07:56 MCV 61.3 fl (81-100) L 11/19/16 07:56 MCH 18.1 pg (27.0-31.0) L 11/19/16 07:56 MCHC Differential 29.5 pg (28.0-36.0) 11/19/16 07:56 RDW 34.8 % (11.5-20.0) H 11/19/16 07:56 Plt Count 352 Th/cmm (150-400) 11/19/16 07:56 MPV 7.7 fl 11/19/16 07:56 Neutrophils % 69.2 % (40.0-80.0) 11/16/16 15:00 Band Neutrophils % 4 % (0-10) 11/19/16 07:56 Lymphocytes % 19.0 % (20.0-50.0) L 11/16/16 15:00 Monocytes % 10.2 % (2.0-10.0) H 11/16/16 15:00 Eosinophils % 1.2 % (0.0-5.0) 11/16/16 15:00 Basophils % 0.4 % (0.0-2.0) 11/16/16 15:00 Neutrophils (Manual) 79 % (40-80) 11/19/16 07:56 Lymphocytes 10 % (20-50) L 11/19/16 07:56 Monocytes 5 % (2-10) 11/19/16 07:56 Eosinophils 2 % (0-5) 11/19/16 07:56 Metamyelocytes 1 % (0-0) H 11/18/16 05:54 Nucleated RBCs 3.0 % (0-0) H 11/17/16 05:19 Atypical Lymphocytes 1 % 11/18/16 05:54 Hypochromia 1+ 11/15/16 22:30 Platelet Estimate ADEQUATE (NORMAL) 11/19/16 07:56 Platelet Morphology NORMAL (NORMAL) 11/19/16 07:56 Polychromasia 2+ 11/19/16 07:56 Poikilocytosis 1+ 11/15/16 22:30 Anisocytosis 3+ 11/19/16 07:56 Microcytosis 3+ 11/19/16 07:56 Rouleaux 2+ 11/15/16 22:30 RBC Morph Micro Appear ABNORMAL (NORMAL) 11/19/16 07:56 PT 10.4 SECONDS (9.5-11.5) 11/15/16 22:30 INR 1.00 (0.5-1.4) 11/15/16 22:30 PTT (Actin FS) 22.3 SECONDS (26.0-38.0) L 11/15/16 22:30 Sodium 136 mEq/L (136-145) 11/19/16 07:56 Potassium 3.6 mEq/L (3.5-5.1) 11/19/16 07:56 Chloride 104 mEq/L (98-107) 11/19/16 07:56 Carbon Dioxide 32.1 mEq/L (21.0-31.0) H 11/19/16 07:56 Anion Gap 3.5 (7.0-16.0) L 11/19/16 07:56 BUN 10 mg/dL (7-25) 11/19/16 07:56 Creatinine 0.4 mg/dL (0.6-1.2) L 11/19/16 07:56 Est GFR ( Amer) > 60.0 ml/min (>90) 11/19/16 07:56 Est GFR (Non-Af Amer) > 60.0 ml/min 11/19/16 07:56 BUN/Creatinine Ratio 25.0 11/19/16 07:56 Glucose 124 mg/dL (70-105) H 11/19/16 07:56 Whole Bld Lactic Acid 1.26 mmol/L (0.60-1.99) 11/15/16 22:30 Calcium 8.6 mg/dL (8.6-10.3) 11/19/16 07:56 Iron 13 ug/dL (27-159) L 11/15/16 22:30 TIBC 496 ug/dL (250-450) H 11/15/16 22:30 Iron Saturation 3 % (15-55) L 11/15/16 22:30 Unsaturated IBC 483 ug/dL (131-425) H 11/15/16 22:30 Ferritin 6 ng/mL (15-150) L 11/15/16 22:30 Total Bilirubin 0.4 mg/dL (0.3-1.0) 11/19/16 07:56 AST 22 U/L (13-39) 11/19/16 07:56 ALT 30 U/L (7-52) 11/19/16 07:56 Alkaline Phosphatase 118 U/L (34-104) H 11/19/16 07:56 Ammonia 57 umol/L (16-53) H 11/16/16 15:00 Creatine Kinase 34 U/L (30-223) 11/15/16 22:30 Troponin I 0.01 ng/mL (0.01-0.05) 11/15/16 22:30 B-Natriuretic Peptide 35.0 pg/mL (5.0-100.0) 11/15/16 22:30 Total Protein 6.4 gm/dL (6.0-8.3) 11/19/16 07:56 Albumin 3.4 gm/dL (3.7-5.3) L 11/19/16 07:56 Globulin 3.0 gm/dL 11/19/16 07:56 Albumin/Globulin Ratio 1.1 (1.0-1.8) 11/19/16 07:56 Triglycerides 142 mg/dL (<150) 11/15/16 22:30 Cholesterol 97 mg/dL (<200) 11/15/16 22:30 LDL Cholesterol Direct 56 mg/dL (75-193) L 11/15/16 22:30 HDL Cholesterol 34 mg/dL (23-92) 11/15/16 22:30 Carcinoembryonic Ag 1.0 ng/mL (0.0-4.7) 11/16/16 15:00 CA 15-3 Antigen 17.8 U/mL (0.0-25.0) 11/16/16 15:00 CA 19-9 Antigen 1 U/mL (0-35) 11/16/16 15:00 CA 27-29 Serial Monitr 8.6 U/mL (0.0-38.6) 11/16/16 15:00 CA 125 Antigen 6.4 U/mL (0.0-38.1) 11/16/16 15:00 Vitamin B12 394 pg/mL (211-946) 11/16/16 15:00 Folic Acid 12.7 ng/mL (>3.0) 11/16/16 15:00 Serum , Qual NEGATIVE (NEGATIVE) 11/15/16 22:30 Stool Occult Blood NEGATIVE (NEGATIVE) 11/19/16 10:20 Blood Type O POSITIVE 11/15/16 22:52 Antibody Screen NEGATIVE 11/15/16 22:52 Crossmatch See Detail 11/15/16 22:52 - Physical Exam Vitals and I&O: Vital Signs Temp 98.0 F 11/19/16 04:00 Pulse 95 11/19/16 07:20 Resp 14 11/19/16 07:20 BP 108/71 11/19/16 04:00 Pulse Ox 95 11/19/16 07:20 Intake & Output 11/18/16 11/19/16 11/19/16 18:59 06:59 18:59 Intake Total 1110 1000 Balance 1110 1000 Weight (lbs) 155 lb Intake: Intake, IV Amount 1110 1000 D5-0.9%Ns 1,000 ml @ 80 1000 1000 mls/hr IV .[id number] [facility] Rx #:[id number] Sodium Ferric Gluconate 110 125 mg In Sodium Chloride 0.9% 100 ml @ 100 mls/hr IV Q24HR [facility] Rx#: [id number] Other: # Voids 2 Active Medications: Current Medications Acetaminophen (Tylenol) 650 mg PO Q6HR PRN PRN Reason: Pain or Fever >101 Stop: 01/14/17 23:46 Albuterol Sulfate (Albuterol 2.5mg/3ml Neb Ud) 2.5 mg HHN Q2H PRN PRN Reason: Shortness of Breath or Wheeze Stop: 01/14/17 23:47 Last Admin: 11/19/16 07:20 Dose: 2.5 mg Artificial Tears (Artificial Tears Ophth Soln) 1 drop EACH EYE BID [facility] Stop: 01/15/17 16:59 Last Admin: 11/19/16 09:19 Dose: 1 drop Benztropine Mesylate (Cogentin) 0.5 mg PO BID [facility] Stop: 01/15/17 08:59 Last Admin: 11/19/16 09:19 Dose: 0.5 mg Bisacodyl (Dulcolax 10 Mg Supp) 10 mg RC DAILY PRN PRN Reason: Constipation Stop: 01/14/17 23:46 Docusate Sodium (Colace) 100 mg PO DAILY [facility] Stop: 01/15/17 08:59 Last Admin: 11/19/16 09:19 Dose: 100 mg Guaifenesin (Robitussin) 200 mg PO Q4HR PRN PRN Reason: Cough or Congestion Stop: 01/14/17 23:47 Dextrose/Sodium Chloride (D5-0.9%Ns) 1,000 mls @ 80 mls/hr IV .[id number] [facility] Stop: 01/14/17 23:44 Last Admin: 11/19/16 04:58 Dose: 80 mls/hr Ferric Sodium Gluconate Complex 125 mg/ Sodium Chloride 110 mls @ 100 mls/hr IV Q24HR [facility] Stop: 11/24/16 14:20 Last Admin: 11/19/16 12:39 Dose: 100 mls/hr Magnesium Hydroxide (Milk Of Magnesia) 30 ml PO DAILY PRN PRN Reason: Constipation Stop: 01/14/17 23:46 Ondansetron HCl (Zofran) 4 mg IV Q8H PRN PRN Reason: Nausea / Vomiting Stop: 01/14/17 23:47 Pantoprazole Sodium (Protonix) 40 mg PO BID [facility] Stop: 01/17/17 16:59 Last Admin: 11/19/16 09:19 Dose: 40 mg Risperidone (Risperdal) 0.5 mg PO BID [facility] PRN Reason: Protocol Stop: 01/15/17 08:59 Last Admin: 11/19/16 09:19 Dose: 0.5 mg Simvastatin (Zocor) 40 mg PO HS [facility] PRN Reason: Protocol Stop: 01/15/17 20:59 Last Admin: 11/18/16 21:09 Dose: 40 mg Zolpidem Tartrate (Ambien) 10 mg PO HS PRN PRN Reason: Insomnia Stop: 01/14/17 23:47 General: weak, alert HEENT: NC/AT, PERRLA Neck: Supple Lungs: congested Cardiovascular: RRR, Normal S1, Normal S2, without murmur Abdomen: soft, non-tender, non-distended Extremities: excoriation Neurological: alert - Procedures Procedures: Procedures Procedure Code Date BLOOD TRANSFUSION SERVICE 64956 11/15/16 EGD BIOPSY SINGLE/MULTIPLE 33465 09/03/15 EXCISION OF SMALL INTESTINE, ENDO, DIAGN [id number] 09/03/15 TRANSFUSE NONAUT RED BLOOD CELLS IN PERIPH VEIN, PERC [id number] 11/15/16 Internal Medicine Assmt/Plan - Assessment Assessment: SEVERE ANEMIA GERD HYPERLIPIDEMIA CATARACT PSYCHOSIS HEMIPLEGIA GENERALIZED WEAKNESS - Plan Plan: barium enema TOMORROW monitor h/h ivf for hydration am labs stool ob to be collected. continue current plan of care
[2016-11-19] MEDS ORDERED: Magnesium Citrate 1.75 GM/300 mL Bottle PO ONE (14:17)
[2016-11-20 07:07] LABS: HEMATOCRIT 30.1 % (35.0-45.0); MEAN CORPUSCULAR HEMOGLOBIN 18.7 pg (27.0-31.0); MEAN CORPUSCULAR HGB CONC 29.8 pg (28.0-36.0); MEAN PLATELET VOLUME 8.4 fl; PLATELET COUNT 386 Th/cmm (150-400); RED BLOOD COUNT 4.79 Mil/cmm (3.80-5.10); WHITE BLOOD COUNT 9.8 Th/cmm (4.8-10.8)
[2016-11-20 07:14] LABS: ANION GAP 4.5 (7.0-16.0); BUN - UREA NITROGEN 8 mg/dL (7-25); CALCIUM SERUM 8.9 mg/dL (8.6-10.3); CARBON DIOXIDE 34.1 mEq/L (21.0-31.0); CHLORIDE 103 mEq/L (98-107); CREATININE - SERUM 0.5 mg/dL (0.6-1.2); GLUCOSE 117 mg/dL (70-105); POTASSIUM SERUM 3.6 mEq/L (3.5-5.1); SODIUM SERUM 138 mEq/L (136-145)
[2016-11-20 07:38] LABS: BAND NEUTROPHILE 0 % (0-10); NEUTROPHILS 65 % (40-80); TOTAL CELLS COUNTED 100
[2016-11-20 07:39] LABS: PLATELET ESTIMATE ADEQUATE (NORMAL)
[2016-11-20 07:40] LABS: ANISOCYTOSIS 2+; HYPOCHROMIA 1+; MICROCYTOSIS 2+; POIKILOCYTOSIS 1+
[2016-11-20 11:02] LABS: MEAN CELL VOLUME 62.9 fl (81-100)
[2016-11-20] MEDS: Pantoprazole 40 mg EC Tab PO SCH ×2 (11:54→18:31)
--- NOTE | 2016-11-20 12:13 | Internal Medicine Prog Note ---
Internal Medicine Subjective - Subjective Service Date: 11/20/16 (patient was sent out today for barium enema) Patient is:: awake Patient Complaints of:: congestion Per staff patient has:: no adverse event Internal Medicine Objective - Results Result Diagrams: 11/20/16 06:10 11/20/16 06:10 Recent Labs: Laboratory Last Values WBC 9.8 Th/cmm (4.8-10.8) 11/20/16 06:10 RBC 4.79 Mil/cmm (3.80-5.10) 11/20/16 06:10 Hgb 9.0 gm/dL (11.7-15.5) L 11/20/16 06:10 Hct 30.1 % (35.0-45.0) L 11/20/16 06:10 MCV 62.9 fl (81-100) L 11/20/16 06:10 MCH 18.7 pg (27.0-31.0) L 11/20/16 06:10 MCHC Differential 29.8 pg (28.0-36.0) 11/20/16 06:10 RDW 36.0 % (11.5-20.0) H 11/20/16 06:10 Plt Count 386 Th/cmm (150-400) 11/20/16 06:10 MPV 8.4 fl 11/20/16 06:10 Neutrophils % 69.2 % (40.0-80.0) 11/16/16 15:00 Band Neutrophils % 0 % (0-10) 11/20/16 06:10 Lymphocytes % 19.0 % (20.0-50.0) L 11/16/16 15:00 Monocytes % 10.2 % (2.0-10.0) H 11/16/16 15:00 Eosinophils % 1.2 % (0.0-5.0) 11/16/16 15:00 Basophils % 0.4 % (0.0-2.0) 11/16/16 15:00 Neutrophils (Manual) 65 % (40-80) 11/20/16 06:10 Lymphocytes 20 % (20-50) 11/20/16 06:10 Monocytes 8 % (2-10) 11/20/16 06:10 Eosinophils 2 % (0-5) 11/19/16 07:56 Metamyelocytes 1 % (0-0) H 11/18/16 05:54 Nucleated RBCs 3.0 % (0-0) H 11/17/16 05:19 Atypical Lymphocytes 1 % 11/18/16 05:54 Hypochromia 1+ 11/20/16 06:10 Platelet Estimate ADEQUATE (NORMAL) 11/20/16 06:10 Platelet Morphology NORMAL (NORMAL) 11/19/16 07:56 Polychromasia 2+ 11/19/16 07:56 Poikilocytosis 1+ 11/20/16 06:10 Anisocytosis 2+ 11/20/16 06:10 Microcytosis 2+ 11/20/16 06:10 Rouleaux 2+ 11/15/16 22:30 RBC Morph Micro Appear ABNORMAL (NORMAL) 11/20/16 06:10 PT 10.4 SECONDS (9.5-11.5) 11/15/16 22:30 INR 1.00 (0.5-1.4) 11/15/16 22:30 PTT (Actin FS) 22.3 SECONDS (26.0-38.0) L 11/15/16 22:30 Sodium 138 mEq/L (136-145) 11/20/16 06:10 Potassium 3.6 mEq/L (3.5-5.1) 11/20/16 06:10 Chloride 103 mEq/L (98-107) 11/20/16 06:10 Carbon Dioxide 34.1 mEq/L (21.0-31.0) H 11/20/16 06:10 Anion Gap 4.5 (7.0-16.0) L 11/20/16 06:10 BUN 8 mg/dL (7-25) 11/20/16 06:10 Creatinine 0.5 mg/dL (0.6-1.2) L 11/20/16 06:10 Est GFR ( Amer) > 60.0 ml/min (>90) 11/20/16 06:10 Est GFR (Non-Af Amer) > 60.0 ml/min 11/20/16 06:10 BUN/Creatinine Ratio 16.0 11/20/16 06:10 Glucose 117 mg/dL (70-105) H 11/20/16 06:10 Whole Bld Lactic Acid 1.26 mmol/L (0.60-1.99) 11/15/16 22:30 Calcium 8.9 mg/dL (8.6-10.3) 11/20/16 06:10 Iron 13 ug/dL (27-159) L 11/15/16 22:30 TIBC 496 ug/dL (250-450) H 11/15/16 22:30 Iron Saturation 3 % (15-55) L 11/15/16 22:30 Unsaturated IBC 483 ug/dL (131-425) H 11/15/16 22:30 Ferritin 6 ng/mL (15-150) L 11/15/16 22:30 Total Bilirubin 0.4 mg/dL (0.3-1.0) 11/19/16 07:56 AST 22 U/L (13-39) 11/19/16 07:56 ALT 30 U/L (7-52) 11/19/16 07:56 Alkaline Phosphatase 118 U/L (34-104) H 11/19/16 07:56 Ammonia 57 umol/L (16-53) H 11/16/16 15:00 Creatine Kinase 34 U/L (30-223) 11/15/16 22:30 Troponin I 0.01 ng/mL (0.01-0.05) 11/15/16 22:30 B-Natriuretic Peptide 35.0 pg/mL (5.0-100.0) 11/15/16 22:30 Total Protein 6.4 gm/dL (6.0-8.3) 11/19/16 07:56 Albumin 3.4 gm/dL (3.7-5.3) L 11/19/16 07:56 Globulin 3.0 gm/dL 11/19/16 07:56 Albumin/Globulin Ratio 1.1 (1.0-1.8) 11/19/16 07:56 Triglycerides 142 mg/dL (<150) 11/15/16 22:30 Cholesterol 97 mg/dL (<200) 11/15/16 22:30 LDL Cholesterol Direct 56 mg/dL (75-193) L 11/15/16 22:30 HDL Cholesterol 34 mg/dL (23-92) 11/15/16 22:30 Carcinoembryonic Ag 1.0 ng/mL (0.0-4.7) 11/16/16 15:00 CA 15-3 Antigen 17.8 U/mL (0.0-25.0) 11/16/16 15:00 CA 19-9 Antigen 1 U/mL (0-35) 11/16/16 15:00 CA 27-29 Serial Monitr 8.6 U/mL (0.0-38.6) 11/16/16 15:00 CA 125 Antigen 6.4 U/mL (0.0-38.1) 11/16/16 15:00 Vitamin B12 394 pg/mL (211-946) 11/16/16 15:00 Folic Acid 12.7 ng/mL (>3.0) 11/16/16 15:00 Serum , Qual NEGATIVE (NEGATIVE) 11/15/16 22:30 Stool Occult Blood NEGATIVE (NEGATIVE) 11/19/16 10:20 Blood Type O POSITIVE 11/15/16 22:52 Antibody Screen NEGATIVE 11/15/16 22:52 Crossmatch See Detail 11/15/16 22:52 - Physical Exam Vitals and I&O: Vital Signs Temp 99.0 F 11/20/16 04:00 Pulse 83 11/20/16 07:10 Resp 14 11/20/16 07:10 BP 117/78 11/20/16 04:00 Pulse Ox 97 11/20/16 07:10 Intake & Output 11/19/16 11/20/16 11/20/16 18:59 06:59 18:59 Intake Total 1350 200 Balance 1350 200 Weight (lbs) 155 lb 153 lb Intake: Intake, IV Amount 1000 D5-0.9%Ns 1,000 ml @ 80 1000 mls/hr IV .[id number] [facility] Rx #:[id number] Oral 350 200 Other: # Voids 3 2 # Bowel Movements 1 2 Active Medications: Current Medications Acetaminophen (Tylenol) 650 mg PO Q6HR PRN PRN Reason: Pain or Fever >101 Stop: 01/14/17 23:46 Albuterol Sulfate (Albuterol 2.5mg/3ml Neb Ud) 2.5 mg HHN Q2H PRN PRN Reason: Shortness of Breath or Wheeze Stop: 01/14/17 23:47 Last Admin: 11/19/16 07:20 Dose: 2.5 mg Artificial Tears (Artificial Tears Ophth Soln) 1 drop EACH EYE BID [facility] Stop: 01/15/17 16:59 Last Admin: 11/19/16 16:36 Dose: 1 drop Benztropine Mesylate (Cogentin) 0.5 mg PO BID [facility] Stop: 01/15/17 08:59 Last Admin: 11/20/16 11:54 Dose: 0.5 mg Bisacodyl (Dulcolax 10 Mg Supp) 10 mg RC DAILY PRN PRN Reason: Constipation Stop: 01/14/17 23:46 Docusate Sodium (Colace) 100 mg PO DAILY [facility] Stop: 01/15/17 08:59 Last Admin: 11/20/16 11:54 Dose: 100 mg Guaifenesin (Robitussin) 200 mg PO Q4HR PRN PRN Reason: Cough or Congestion Stop: 01/14/17 23:47 Dextrose/Sodium Chloride (D5-0.9%Ns) 1,000 mls @ 80 mls/hr IV .[id number] [facility] Stop: 01/14/17 23:44 Last Admin: 11/19/16 19:57 Dose: 80 mls/hr Ferric Sodium Gluconate Complex 125 mg/ Sodium Chloride 110 mls @ 100 mls/hr IV Q24HR [facility] Stop: 11/24/16 14:20 Last Admin: 11/19/16 12:39 Dose: 100 mls/hr Magnesium Hydroxide (Milk Of Magnesia) 30 ml PO DAILY PRN PRN Reason: Constipation Stop: 01/14/17 23:46 Ondansetron HCl (Zofran) 4 mg IV Q8H PRN PRN Reason: Nausea / Vomiting Stop: 01/14/17 23:47 Pantoprazole Sodium (Protonix) 40 mg PO BID [facility] Stop: 01/17/17 16:59 Last Admin: 11/20/16 11:54 Dose: 40 mg Risperidone (Risperdal) 0.5 mg PO BID [facility] PRN Reason: Protocol Stop: 01/15/17 08:59 Last Admin: 11/20/16 11:54 Dose: 0.5 mg Simvastatin (Zocor) 40 mg PO HS [facility]ATIE PRN Reason: Protocol Stop: 01/15/17 20:59 Last Admin: 11/19/16 21:51 Dose: 40 mg Zolpidem Tartrate (Ambien) 10 mg PO HS PRN PRN Reason: Insomnia Stop: 01/14/17 23:47 General: weak, alert HEENT: NC/AT, PERRLA Neck: Supple Lungs: congested Cardiovascular: RRR, Normal S1, Normal S2, without murmur Abdomen: soft, non-tender, non-distended Extremities: excoriation Neurological: alert - Procedures Procedures: Procedures Procedure Code Date BLOOD TRANSFUSION SERVICE 05743 11/15/16 EGD BIOPSY SINGLE/MULTIPLE 63075 09/03/15 EXCISION OF SMALL INTESTINE, ENDO, DIAGN [id number] 09/03/15 TRANSFUSE NONAUT RED BLOOD CELLS IN PERIPH VEIN, PERC [id number] 11/15/16 Internal Medicine Assmt/Plan - Assessment Assessment: SEVERE ANEMIA GERD HYPERLIPIDEMIA CATARACT PSYCHOSIS HEMIPLEGIA GENERALIZED WEAKNESS - Plan Plan: monitor h/h ivf for hydration am labs stool ob to be collected. continue current plan of care
--- NOTE | 2016-11-20 12:36 | Diagnostic Imaging Report ---
Barium enema (single contrast) HISTORY: Anemia Barium was passed from the rectum to the cecum with reflux into the terminal ileum. The exam demonstrates multiple diverticula within the sigmoid region of the colon. No definite intraluminal filling defects are seen. Normal colonic caliber and haustral pattern. No evidence of any extrinsic masses. IMPRESSION: 1. Diverticulosis 2. No other significant abnormalities
[2016-11-20] MEDS: Sodium Ferric Gluconate 125 MG in Sodium Chloride 0.9% 100 ML IV SCH (14:35)
[2016-11-20] MEDS: Polyvinyl Alcohol Ophth Soln 15 mL Bottle EACH EYE SCH (18:21)
[2016-11-20] MEDS: D5-0.9%NS 1,000 ML IV SCH (20:27)
[2016-11-21 07:14] LABS: HEMATOCRIT 30.1 % (35.0-45.0); MEAN CORPUSCULAR HGB CONC 29.8 pg (28.0-36.0); MEAN PLATELET VOLUME 8.7 fl; PLATELET COUNT 410 Th/cmm (150-400); RED BLOOD COUNT 4.71 Mil/cmm (3.80-5.10); RED CELL DISTRIBUTION WIDTH 37.5 % (11.5-20.0); WHITE BLOOD COUNT 9.1 Th/cmm (4.8-10.8)
[2016-11-21 07:40] LABS: MEAN CELL VOLUME 63.9 fl (81-100)
[2016-11-21 07:48] LABS: ANION GAP 7.6 (7.0-16.0); BUN - UREA NITROGEN 6 mg/dL (7-25); CALCIUM SERUM 8.8 mg/dL (8.6-10.3); CARBON DIOXIDE 31.2 mEq/L (21.0-31.0); CHLORIDE 102 mEq/L (98-107); CREATININE - SERUM 0.4 mg/dL (0.6-1.2); GLUCOSE 118 mg/dL (70-105); POTASSIUM SERUM 3.8 mEq/L (3.5-5.1); SODIUM SERUM 137 mEq/L (136-145)
[2016-11-21 08:21] LABS: ANISOCYTOSIS 3+; BAND NEUTROPHILE 2 % (0-10); EOSINOPHIL 8 % (0-5); MICROCYTOSIS 3+; NEUTROPHILS 70 % (40-80); PLATELET ESTIMATE ADEQUATE (NORMAL); PLATELET MORPHOLOGY NORMAL (NORMAL); POLYCHROMASIA 2+; TOTAL CELLS COUNTED 100
[2016-11-21] MEDS: D5-0.9%NS 1,000 ML IV SCH (09:21)
[2016-11-21] MEDS: Pantoprazole 40 mg EC Tab PO SCH (10:11)
[2016-11-21] MEDS: Polyvinyl Alcohol Ophth Soln 15 mL Bottle EACH EYE SCH (10:11)
--- NOTE | 2016-11-21 11:58 | Internal Medicine Prog Note ---
Internal Medicine Subjective - Subjective Service Date: 11/21/16 ([id number] DC SUMMARY) Patient is:: awake Patient Complaints of:: congestion Per staff patient has:: no adverse event Internal Medicine Objective - Results Result Diagrams: 11/21/16 06:35 11/21/16 06:35 Recent Labs: Laboratory Last Values WBC 9.1 Th/cmm (4.8-10.8) 11/21/16 06:35 RBC 4.71 Mil/cmm (3.80-5.10) 11/21/16 06:35 Hgb 9.0 gm/dL (11.7-15.5) L 11/21/16 06:35 Hct 30.1 % (35.0-45.0) L 11/21/16 06:35 MCV 63.9 fl (81-100) L 11/21/16 06:35 MCH 19.0 pg (27.0-31.0) L 11/21/16 06:35 MCHC Differential 29.8 pg (28.0-36.0) 11/21/16 06:35 RDW 37.5 % (11.5-20.0) H 11/21/16 06:35 Plt Count 410 Th/cmm (150-400) H 11/21/16 06:35 MPV 8.7 fl 11/21/16 06:35 Neutrophils % 69.2 % (40.0-80.0) 11/16/16 15:00 Band Neutrophils % 2 % (0-10) 11/21/16 06:35 Lymphocytes % 19.0 % (20.0-50.0) L 11/16/16 15:00 Monocytes % 10.2 % (2.0-10.0) H 11/16/16 15:00 Eosinophils % 1.2 % (0.0-5.0) 11/16/16 15:00 Basophils % 0.4 % (0.0-2.0) 11/16/16 15:00 Neutrophils (Manual) 70 % (40-80) 11/21/16 06:35 Lymphocytes 11 % (20-50) L 11/21/16 06:35 Monocytes 8 % (2-10) 11/21/16 06:35 Eosinophils 8 % (0-5) H 11/21/16 06:35 Metamyelocytes 1 % (0-0) H 11/18/16 05:54 Nucleated RBCs 1.0 % (0-0) H 11/21/16 06:35 Atypical Lymphocytes 1 % 11/21/16 06:35 Hypochromia 1+ 11/20/16 06:10 Platelet Estimate ADEQUATE (NORMAL) 11/21/16 06:35 Platelet Morphology NORMAL (NORMAL) 11/21/16 06:35 Polychromasia 2+ 11/21/16 06:35 Poikilocytosis 1+ 11/20/16 06:10 Anisocytosis 3+ 11/21/16 06:35 Microcytosis 3+ 11/21/16 06:35 Rouleaux 2+ 11/15/16 22:30 RBC Morph Micro Appear ABNORMAL (NORMAL) 11/21/16 06:35 PT 10.4 SECONDS (9.5-11.5) 11/15/16 22:30 INR 1.00 (0.5-1.4) 11/15/16 22:30 PTT (Actin FS) 22.3 SECONDS (26.0-38.0) L 11/15/16 22:30 Sodium 137 mEq/L (136-145) 11/21/16 06:35 Potassium 3.8 mEq/L (3.5-5.1) 11/21/16 06:35 Chloride 102 mEq/L (98-107) 11/21/16 06:35 Carbon Dioxide 31.2 mEq/L (21.0-31.0) H 11/21/16 06:35 Anion Gap 7.6 (7.0-16.0) 11/21/16 06:35 BUN 6 mg/dL (7-25) L 11/21/16 06:35 Creatinine 0.4 mg/dL (0.6-1.2) L 11/21/16 06:35 Est GFR ( Amer) > 60.0 ml/min (>90) 11/21/16 06:35 Est GFR (Non-Af Amer) > 60.0 ml/min 11/21/16 06:35 BUN/Creatinine Ratio 15.0 11/21/16 06:35 Glucose 118 mg/dL (70-105) H 11/21/16 06:35 Whole Bld Lactic Acid 1.26 mmol/L (0.60-1.99) 11/15/16 22:30 Calcium 8.8 mg/dL (8.6-10.3) 11/21/16 06:35 Iron 13 ug/dL (27-159) L 11/15/16 22:30 TIBC 496 ug/dL (250-450) H 11/15/16 22:30 Iron Saturation 3 % (15-55) L 11/15/16 22:30 Unsaturated IBC 483 ug/dL (131-425) H 11/15/16 22:30 Ferritin 6 ng/mL (15-150) L 11/15/16 22:30 Total Bilirubin 0.4 mg/dL (0.3-1.0) 11/19/16 07:56 AST 22 U/L (13-39) 11/19/16 07:56 ALT 30 U/L (7-52) 11/19/16 07:56 Alkaline Phosphatase 118 U/L (34-104) H 11/19/16 07:56 Ammonia 57 umol/L (16-53) H 11/16/16 15:00 Creatine Kinase 34 U/L (30-223) 11/15/16 22:30 Troponin I 0.01 ng/mL (0.01-0.05) 11/15/16 22:30 B-Natriuretic Peptide 35.0 pg/mL (5.0-100.0) 11/15/16 22:30 Total Protein 6.4 gm/dL (6.0-8.3) 11/19/16 07:56 Albumin 3.4 gm/dL (3.7-5.3) L 11/19/16 07:56 Globulin 3.0 gm/dL 11/19/16 07:56 Albumin/Globulin Ratio 1.1 (1.0-1.8) 11/19/16 07:56 Triglycerides 142 mg/dL (<150) 11/15/16 22:30 Cholesterol 97 mg/dL (<200) 11/15/16 22:30 LDL Cholesterol Direct 56 mg/dL (75-193) L 11/15/16 22:30 HDL Cholesterol 34 mg/dL (23-92) 11/15/16 22:30 Carcinoembryonic Ag 1.0 ng/mL (0.0-4.7) 11/16/16 15:00 CA 15-3 Antigen 17.8 U/mL (0.0-25.0) 11/16/16 15:00 CA 19-9 Antigen 1 U/mL (0-35) 11/16/16 15:00 CA 27-29 Serial Monitr 8.6 U/mL (0.0-38.6) 11/16/16 15:00 CA 125 Antigen 6.4 U/mL (0.0-38.1) 11/16/16 15:00 Vitamin B12 394 pg/mL (211-946) 11/16/16 15:00 Folic Acid 12.7 ng/mL (>3.0) 11/16/16 15:00 Serum , Qual NEGATIVE (NEGATIVE) 11/15/16 22:30 Stool Occult Blood NEGATIVE (NEGATIVE) 11/19/16 10:20 Blood Type O POSITIVE 11/15/16 22:52 Antibody Screen NEGATIVE 11/15/16 22:52 Crossmatch See Detail 11/15/16 22:52 - Physical Exam Vitals and I&O: Vital Signs Temp 98.7 F 11/21/16 05:35 Pulse 99 11/21/16 07:07 Resp 17 11/21/16 07:07 BP 122/64 11/21/16 05:35 Pulse Ox 97 11/21/16 07:07 Intake & Output 11/20/16 11/21/16 11/21/16 18:59 06:59 18:59 Intake Total 1000 10 1000 Balance 1000 10 1000 Weight (lbs) 153 lb 153 lb Intake: Intake, IV Amount 1000 1000 D5-0.9%Ns 1,000 ml @ 80 1000 1000 mls/hr IV .[id number] [facility] Rx #:[id number] Oral 10 Other: # Voids 1 # Bowel Movements 0 Active Medications: Current Medications Acetaminophen (Tylenol) 650 mg PO Q6HR PRN PRN Reason: Pain or Fever >101 Stop: 01/14/17 23:46 Albuterol Sulfate (Albuterol 2.5mg/3ml Neb Ud) 2.5 mg HHN Q2H PRN PRN Reason: Shortness of Breath or Wheeze Stop: 01/14/17 23:47 Last Admin: 11/19/16 07:20 Dose: 2.5 mg Artificial Tears (Artificial Tears Ophth Soln) 1 drop EACH EYE BID [facility] Stop: 01/15/17 16:59 Last Admin: 11/21/16 10:11 Dose: 1 drop Benztropine Mesylate (Cogentin) 0.5 mg PO BID [facility] Stop: 01/15/17 08:59 Last Admin: 11/21/16 10:12 Dose: 0.5 mg Bisacodyl (Dulcolax 10 Mg Supp) 10 mg RC DAILY PRN PRN Reason: Constipation Stop: 01/14/17 23:46 Docusate Sodium (Colace) 100 mg PO DAILY [facility] Stop: 01/15/17 08:59 Last Admin: 11/21/16 10:12 Dose: 100 mg Guaifenesin (Robitussin) 200 mg PO Q4HR PRN PRN Reason: Cough or Congestion Stop: 01/14/17 23:47 Dextrose/Sodium Chloride (D5-0.9%Ns) 1,000 mls @ 80 mls/hr IV .[id number] [facility] Stop: 01/14/17 23:44 Last Admin: 11/21/16 09:21 Dose: 80 mls/hr Ferric Sodium Gluconate Complex 125 mg/ Sodium Chloride 110 mls @ 100 mls/hr IV Q24HR [facility] Stop: 11/24/16 14:20 Last Admin: 11/20/16 14:35 Dose: 100 mls/hr Magnesium Hydroxide (Milk Of Magnesia) 30 ml PO DAILY PRN PRN Reason: Constipation Stop: 01/14/17 23:46 Ondansetron HCl (Zofran) 4 mg IV Q8H PRN PRN Reason: Nausea / Vomiting Stop: 01/14/17 23:47 Pantoprazole Sodium (Protonix) 40 mg PO BID [facility] Stop: 01/17/17 16:59 Last Admin: 11/21/16 10:11 Dose: 40 mg Risperidone (Risperdal) 0.5 mg PO BID KATIE PRN Reason: Protocol Stop: 01/15/17 08:59 Last Admin: 11/21/16 10:11 Dose: 0.5 mg Simvastatin (Zocor) 40 mg PO HS KATIE PRN Reason: Protocol Stop: 01/15/17 20:59 Last Admin: 11/20/16 22:08 Dose: 40 mg Zolpidem Tartrate (Ambien) 10 mg PO HS PRN PRN Reason: Insomnia Stop: 01/14/17 23:47 General: weak, alert HEENT: NC/AT, PERRLA Neck: Supple Lungs: congested Cardiovascular: RRR, Normal S1, Normal S2, without murmur Abdomen: soft, non-tender, non-distended Extremities: excoriation Neurological: alert - Procedures Procedures: Procedures Procedure Code Date BLOOD TRANSFUSION SERVICE 56157 11/15/16 EGD BIOPSY SINGLE/MULTIPLE 53028 09/03/15 EXCISION OF SMALL INTESTINE, ENDO, DIAGN [id number] 09/03/15 TRANSFUSE NONAUT RED BLOOD CELLS IN PERIPH VEIN, PERC 93880T8 11/15/16 Internal Medicine Assmt/Plan - Assessment Assessment: SEVERE ANEMIA GERD HYPERLIPIDEMIA CATARACT PSYCHOSIS HEMIPLEGIA GENERALIZED WEAKNESS Nutritional Asmnt/Malnutr-PDOC - Dietary Evaluation Malnutrition Findings (Please click <Entered> for more info): Nutritional Asmnt/Malnutrition Start: 11/20/16 15: 05 Text: Status: Complete Freq: Document 11/20/16 15:05 GSUN (Rec: 11/20/16 15:37 GSUN [email or web address]) Nutritional Asmnt/Malnutrition Patient General Information Nutritional Screening Moderate Risk Screening Diagnosis Severe anemia, cough and congestion Pertinent Medical Hx/Surgical Hx Anemia, hemiplegia, hyperlipidemia, psychosis, GERD, cataracts Subjective Information 56 year old female from SNF. swallow eval: ground nectar. Pt has been tolerating diet, avg 55% of past 5 meals recorded, meeting nutritional needs. 11/19 dinner ordered clear then NPO for barium enema this AM, results: diverticulosis, no other significant abnormalities. Pt was alert and very pleasant during visit, expressed hunger since last night. Food preferences noted. RD informed admission discharge rn regarding resuming ground nectar if able. Pt appeared nourished, no wastings noted. Current Diet Order/ Nutrition Support Clear Pertinent Medications D5-0.9ns, Colace, Dulcolax, MOM, Zofran, Protonix Pertinent Labs Reviewed. 11/15: iron 13L, ferritin 6L Nutritional Hx/Data Height 4 ft 11 in Height (Calculated Centimeters) 149.9 Current Weight (lbs) 153 lb Weight (Calculated Kilograms) 69.4 Weight (Calculated Grams) 11946.6 [place] Body Weight 95 Weight Status Overweight GI Symptoms Difficult in: Swallowing Food Allergies No Skin Integrity/Comment: Jose 14. Left arm bruise. Current %PO Fair (50-74%) Estimated Nutritional Goals BEE in Kcals: Adj wt of IBW Calories/Kcals/Kg AdjBW 109.5lb/49.8kg Kcals Calculated 1245-1494kcal (25-30kcal/kg) Protein: Adj wt of IBW Protein Calculated 50g (1g/kg) Fluid: ml 1245-1494ml (1ml/kcal) Nutritional Problem 1. Problem Problem Swallow difficulty related to Etiology hemiplegia, moderately reduced muscle tone/ROM, left facial droop aeb Signs/Symptoms: swallow eval for ground nectar Intervention/Recommendation Comments 1. Resume diet to [facility] soft ground with [place] thick liquid as able. Expected Outcomes/Goals Expected Outcomes/Goals 1. PO intake to meet at least 75% of estimated nutritional needs.
--- NOTE | 2016-11-21 23:01 | Discharge Summary ---
DATE OF DISCHARGE: 11/21/[address] Juan Coppola. FINAL DIAGNOSES: 1. Severe anemia, which is improved. 2. Gastroesophageal reflux disease. 3. Hyperlipidemia. 4. Cataracts. 5. Psychosis. 6. Hemiplegia. 7. Generalized weakness. HISTORY OF PRESENT ILLNESS: This is a 56-year-old female who was a resident at [facility] who was brought here to [facility] for a 1-day history of cough and congestion associated with shortness of breath. The patient denies any fevers or chills. While the patient was in the ER, the patient's H and H was noted to be 5.8 and 19.7. The patient was transfused with 2 units of PRBC. The patient had a chest x-ray done and impression was poor inspiration, no acute focal pulmonary processes. PHYSICAL EXAMINATION: GENERAL: The patient is well developed, well nourished, in no acute distress. VITAL SIGNS: Stable. HEENT: Head: Normocephalic and atraumatic. NECK: Supple. No masses. LUNGS: Clear bilaterally. HEART: Regular rate and rhythm. ABDOMEN: Soft and nontender. During the hospital stay, the patient was admitted to the telemetry unit. The patient had a GI consultation. The patient was transfused with 2 units of PRBC. The patient was also kept on IV fluids for hydration. . PLAN OF CARE: For this patient was to have a barium enema. The patient had a barium enema on 11/20/2016, and the impression is diverticulosis. No other significant abnormalities. The patient's H and H stabilized. For this reason, the patient is stable for discharge. CONDITION UPON DISCHARGE: Fair. DISPOSITION: The patient is going to [facility]. JOB# [id number]
== END 2016-11-21 20:50 | disposition home or self-care (01) | DRG 663 ==
LOC: ER 21:39 → TELE 23:45 → MSI 11-16 17:57 → TELE 11-18 11:05 → MSI 11-18 18:21
PROVIDERS: ADMIT Internal Medicine; ATTEND Internal Medicine
PROC: 30233N1 Transfusion of Nonautologous Red Blood Cells into Peripheral Vein, Percutaneous Approach (ICD-10-PCS; principal; 2016-11-16)
DX: D50.9 Iron deficiency anemia, unspecified (principal); E44.0 Moderate protein-calorie malnutrition; E87.1 Hypo-osmolality and hyponatremia; G81.90 Hemiplegia, unspecified affecting unspecified side; I10 Essential (primary) hypertension; K21.9 Gastro-esophageal reflux disease without esophagitis; E78.5 Hyperlipidemia, unspecified; E11.36 Type 2 diabetes mellitus with diabetic cataract; F29 Unspecified psychosis not due to a substance or known physiological condition; F20.9 Schizophrenia, unspecified; Z68.30 Body mass index [BMI] 30.0-30.9, adult; Z82.49 Family history of ischemic heart disease and other diseases of the circulatory system; Z83.3 Family history of diabetes mellitus
CPT/HCPCS: 36415-UA; 71010-TC; 74270-TC; 80048-TC; 80053-TC; 80061-TC; 82140-TC; 82270-TC; 82378-90; 82550-TC; 82607-90; 82728-90; 82746-90; 83540-90; 83550-90; 83605; 83880-TC; 84484-TC; 84703-TC; 85007-TC; 85025-TC; 85027-TC; 85610-TC; 86300-90; 86301-90; 86304-90; 86850-TC; 86900-TC; 86901-TC; 86922-TC; 93005; 94760; C9113; J2916; J7030; J7042; J7613; P9016; X3401; Z7610

== ENCOUNTER 2018-09-25 18:16 | Inpatient (IN) | payer MEDICAID ==
[2018-09-25 19:15] LABS: EOSINOPHILE ABSOLUTE 0.2 Th/cmm (0.1-0.4); MEAN CORPUSCULAR HEMOGLOBIN 16.9 pg (27.0-31.0); MONOCYTE ABSOLUTE 0.7 Th/cmm (0.3-1.0); RED BLOOD COUNT 2.17 Mil/cmm (3.80-5.10)
--- NOTE | 2018-09-25 19:17 | ED Physician Chart ---
ED Chief Complaint/HPI - Patient Information Date Seen:: 09/25/18 Time Seen:: 19:12 Chief Complaint:: abn labs History of Present Illness:: 58 yr old female with abn labs low H/h Allergies:: Allergies Allergy/AdvReac Type Severity Reaction Status Date / Time No Known Allergies Allergy Verified 09/25/18 18:24 Vitals:: Vital Signs - 8 hr 09/25/18 18:16 Temp 99.5 F HR 120 RR 16 BP 111/60 O2 Sat % 91 ED Review of Systems - Review of Systems ENT: Other (lt nasal orifice opemimg) Neck: No neck pain Cardio Vascular: No chest pain GI: No vomiting G/U: No dysuria Musculoskeletal: No bone or joint pain Endocrine: No polyuria Psychiatric: No prior psych history Hematopoietic: No bruising Neurological: Focal symptoms (rt sided weakness ), Weakness ED Past Medical History - Past Medical History Obtainable: Yes Past Medical History: CVA/TIA, Dyslipidemia (extra pyramidal sxs), Other ( anemia rhematoid athritus rt hemiplegia) Psychiatricy History: Other (psychosis) Family Medical History - Family Member Mother History Unknown: Yes ED Physical Exam - Physical Examination General/Constitutional: Awake Head: Atraumatic Other Eyes comments:: decreased lt eye closure Other ENMT comments:: lt nasal orifice fissure Respiratory: Nl effort/Exclusion Cardio Vascular: RRR GI: No tenderness/rebounding/guarding, No hernia, Nondistended Extremities: No tenderness or effusion Other Neuro/Psych comments:: facial droop lt and rt hemiplegia ED Septic Shock - . Is Septic Shock (SBP<90, OR Lactate>4 mmol\L) present?: No - <6hrs of presentation: Vital Signs: Vital Signs - 8 hr 09/25/18 18:16 Temp 99.5 F HR 120 RR 16 BP 111/60 O2 Sat % 91 ED Reassessment (Disposition) - Reassessment Reassessment:: severe anemia unclear source has avms hgb 3.8 hct 12.8 - Diagnosis Diagnosis:: severe anemia avm - Patient Disposition Discharge/Transfer:: Acute Care w/in this hosp Admitted to:: ICU Condition at Disposition:: Stable
[2018-09-25 19:18] LABS: % BASOPHILS 0.1 % (0.0-2.0); % EOSINOPHILS 1.7 % (0.0-5.0); % LYMPHOCYTES 17.4 % (20.0-50.0); % MONOCYTES 7.2 % (2.0-10.0); % NEUTROPHILS 73.6 % (40.0-80.0); INR 0.97 (0.5-1.4); LYMPHOCYTE ABSOLUTE 1.6 Th/cmm (1.5-3.0); MEAN CORPUSCULAR HGB CONC 29.8 pg (28.0-36.0); NEUTROPHILE ABSOLUTE 6.9 Th/cmm (1.8-8.0); PLATELET COUNT 647 Th/cmm (150-400); RED CELL DISTRIBUTION WIDTH 22.8 % (11.5-20.0); WHITE BLOOD COUNT 9.4 Th/cmm (4.8-10.8)
[2018-09-25 19:22] LABS: ALB/GLOB RATIO 1.3 (1.0-1.8); ALKALINE PHOSPHATASE 60 U/L (34-104); ANION GAP 10.2 (7.0-16.0); BILIRUBIN,TOTAL 0.2 mg/dL (0.3-1.0); BUN - UREA NITROGEN 13 mg/dL (7-25); CALCIUM SERUM 8.3 mg/dL (8.6-10.3); CARBON DIOXIDE 25.8 mEq/L (21.0-31.0); CHLORIDE 104 mEq/L (98-107); CREATININE - SERUM 0.6 mg/dL (0.6-1.2); CREATININE KINASE 46 U/L (30-223); GFR AFRICAN-AMERICAN > 60.0 ml/min (>90); GFR NON AFRICAN-AMERICAN > 60.0 ml/min; GLUCOSE 167 mg/dL (70-105); SGOT 12 U/L (13-39); SGPT/ALT 9 U/L (7-52); SODIUM SERUM 136 mEq/L (136-145); TOTAL PROTEIN,SERUM 5.3 gm/dL (6.0-8.3)
[2018-09-25 19:24] LABS: HEMATOCRIT 12.3 % (41.0-60); HEMOGLOBIN 3.7 gm/dL (12-16)
[2018-09-25 19:30] LABS: MEAN CELL VOLUME 56.8 fl (81-100)
[2018-09-25] MEDS ORDERED: Maalox 30 mL Cup PO PRN (20:40)
[2018-09-25] MEDS ORDERED: Magnesium Hydroxide (MOM) 30 mL UDC PO PRN (20:40)
[2018-09-25] MEDS ORDERED: guaiFENesin 200 MG/10 ML UDC PO PRN (20:44)
[2018-09-25 21:25] LABS: NEUTROPHILE ABSOLUTE 6.9 Th/cmm (1.8-8.0); RED BLOOD COUNT 2.19 Mil/cmm (3.80-5.10)
[2018-09-25 21:26] LABS: % BASOPHILS 0.4 % (0.0-2.0); % EOSINOPHILS 2.2 % (0.0-5.0); % LYMPHOCYTES 20.8 % (20.0-50.0); % NEUTROPHILS 68.6 % (40.0-80.0); EOSINOPHILE ABSOLUTE 0.2 Th/cmm (0.1-0.4); LYMPHOCYTE ABSOLUTE 2.1 Th/cmm (1.5-3.0); MEAN CORPUSCULAR HEMOGLOBIN 16.5 pg (27.0-31.0); MEAN CORPUSCULAR HGB CONC 29.1 pg (28.0-36.0); MONOCYTE ABSOLUTE 0.8 Th/cmm (0.3-1.0); PLATELET COUNT 601 Th/cmm (150-400); RED CELL DISTRIBUTION WIDTH 23.4 % (11.5-20.0)
[2018-09-25 21:29] LABS: HEMATOCRIT 12.4 % (41.0-60); HEMOGLOBIN 3.6 gm/dL (12-16)
[2018-09-25 21:30] LABS: MEAN CELL VOLUME 56.7 fl (81-100)
--- NOTE | 2018-09-25 23:36 | History & Physical ---
ADMIT DATE: 09/25/2018 CHIEF COMPLAINT: Low hemoglobin. HISTORY OF PRESENT ILLNESS: A 58-year-old white female with history of stroke, high cholesterol, ____ anemia, and rheumatoid arthritis, admitted from nursing facility secondary to apparently reported hemoglobin of 3. There is no report of GI bleeding. The patient is a poor historian. Denies chest pain or shortness of breath. PAST MEDICAL HISTORY: As mentioned in the history of present illness. PAST SURGICAL HISTORY: Denies surgeries in the past. ALLERGIES: No known drug allergies. MEDICATIONS: The patient is on Naprosyn, simvastatin, Tylenol, Cogentin, valacyclovir, Colace, risperidone, milk of magnesia. FAMILY HISTORY: Noncontributory. SOCIAL HISTORY: The patient is a [facility] patient, requiring 24-hour total care. REVIEW OF SYSTEMS: This is limited secondary to the patient's comatose state. We will try to obtain more detailed review of system at a later date by talking to family members. The patient also has history of psych disorder. PHYSICAL EXAMINATION: VITAL SIGNS: Blood pressure 110/63, respirations 18, pulse 106, temperature 98.5. GENERAL: Elderly female. Appears her stated age. NECK: Supple. LUNGS: Equal breath sounds with a few rhonchi. HEART: Regular rate and rhythm without appreciable murmur. ABDOMEN: Soft, globular. EXTREMITIES: Positive excoriations and atrophy. NEUROLOGIC: Limited. LABORATORY DATA: WBC 9.4, hemoglobin 2.7, platelets 647. PT and PTT normal range. Sodium 136, potassium 4.0, BUN 13, creatinine 0.6. Lactic acid 1.6, glucose 167. Troponin is 0.1, albumin 3.0. ASSESSMENT: 1. Severe anemia, rule out gastrointestinal bleeding. 2. Thrombocytosis. 3. Hyperglycemia. 4. Elevated troponin, possibly secondary to severe anemia. 5. Low albumin. 6. History of stroke. 7. Psych disorder. 8. History of rheumatoid arthritis. PLAN: We will continue the patient on IV proton pump inhibitor. We will transfuse the patient. We will refer the patient to GI as well as Hematology. We will check SHAHAB ____. We will continue to monitor the patient in the ICU setting. [facility]# [id number]
[2018-09-25] MEDS: D5-0.45NS 1,000 ML IV SCH (23:47)
[2018-09-26 00:20] VITALS: BP 124/67
[2018-09-26] MEDS ORDERED: CARBOXYMETHYLCELLULOSE SODIUM EACH EYE SCH (09:00)
[2018-09-26] MEDS ORDERED: Polyvinyl Alcohol Ophth Soln 15 mL Bottle EACH EYE PRN (09:09)
--- NOTE | 2018-09-26 09:11 | Diagnostic Imaging Report ---
CHEST X-RAY: AP view INDICATION: pain COMPARISON: 11/16/2016 FINDINGS: There is a large retrocardiac hiatal hernia. This limits evaluation of the mediastinum. Heart size cannot be assessed. Increased interstitial lung markings are noted. No effusions. The osseous structures are intact. IMPRESSION: Large retrocardiac hiatal hernia. CT would provide for additional detail and assessment. Increased interstitial lung markings which may be chronic. Interstitial infiltrate is less likely. Please correlate clinically.
[2018-09-26] MEDS: D5-0.45NS 1,000 ML IV SCH ×3 (09:22→23:00)
[2018-09-26 10:01] LABS: ANION GAP 8.8 (7.0-16.0); BUN - UREA NITROGEN 8 mg/dL (7-25); CALCIUM SERUM 7.8 mg/dL (8.6-10.3); CARBON DIOXIDE 24.9 mEq/L (21.0-31.0); CHLORIDE 105 mEq/L (98-107); CREATININE - SERUM 0.4 mg/dL (0.6-1.2); GFR AFRICAN-AMERICAN > 60.0 ml/min (>90); GFR NON AFRICAN-AMERICAN > 60.0 ml/min; GLUCOSE 137 mg/dL (70-105); POTASSIUM SERUM 3.7 mEq/L (3.5-5.1); SODIUM SERUM 135 mEq/L (136-145)
--- NOTE | 2018-09-26 10:40 | History & Physical ---
ADMIT DATE: 09/26/2018 REFERRING PHYSICIAN: Dr. Juan Coppola. REASON FOR CONSULTATION: Severe anemia. HISTORY OF PRESENT ILLNESS: The patient is a 58-year-old female resident of a nursing facility. She was admitted with a hemoglobin of 3.6 and was transfused 4 units of packed red blood cells. Repeat hemoglobin post-transfusion is pending. There is no report of bleeding from the nursing facility and there is no clinical bleeding since the patient was admitted to our facility. PAST MEDICAL HISTORY: CVA, rheumatoid arthritis, anemia, dyslipidemia, right hemiplegia. PAST SURGICAL HISTORY: None. MEDICATIONS: Naprosyn, simvastatin, Tylenol, valacyclovir, risperidone, Cogentin. SOCIAL HISTORY: Nursing facility resident. PHYSICAL EXAMINATION: GENERAL: She is awake, mentally challenged. VITAL SIGNS: Stable. HEENT: Right facial weakness with no mucosal bleeding. NECK: No lymphadenopathy. CHEST: Clear. ABDOMEN: Obese, soft. EXTREMITIES: No edema. NERVOUS SYSTEM: Right hemiplegia. LABORATORY DATA: White count 10, hemoglobin 3.6, MCV of 56, platelets 601. PT, PTT from admission normal. Liver functions, transaminases normal. Bilirubin 0.2. Rheumatoid factor elevated 84.1. ASSESSMENT AND PLAN: Microcytic anemia, severe, symptomatic, requiring transfusion. Workup for iron deficiency evaluation will be ordered with serum ferritin, transferrin saturation and total iron binding capacity. We will also follow the B12, folic acid level that were ordered. Stool occult blood and urinalysis. This is most likely a combination of factors causing this anemia including the anemia of chronic disease from rheumatoid arthritis and anemia of iron deficiency causing this microcytic anemia. The patient will be evaluated by multiple drum sander helper and if she has evidence of iron deficiency, IV iron supplementation will be started. The patient is currently stable and no further transfusion is required. Thank you, Dr. Coppola for the opportunity to participate in the care of this interesting case for you. [facility]# [id number]
[2018-09-26 11:30] LABS: URINE SOURCE MIDSTREAM
[2018-09-26 11:44] LABS: URINE BILIRUBIN NEGATIVE (NEGATIVE); URINE BLOOD NEGATIVE (NEGATIVE); URINE GLUCOSE (UA) NEGATIVE (NEGATIVE); URINE KETONE NEGATIVE (NEGATIVE); URINE LEUKOCYTE ESTERASE NEGATIVE (NEGATIVE); URINE NITRATE NEGATIVE (NEGATIVE); URINE PH 6.5 (4.6 - 8.0); URINE PROTEIN NEGATIVE (NEGATIVE); URINE UROBILINOGEN 0.2 E.U./dL (0.2 - 1.0)
[2018-09-26 11:45] LABS: URINE CLARITY CLEAR (CLEAR); URINE COLOR YELLOW; URINE MICROSCOPIC INDICATED? NO
[2018-09-26 12:43] LABS: HEMOGLOBIN 9.4 gm/dL (12-16); MEAN CELL VOLUME 73.7 fl (81-100); MEAN CORPUSCULAR HEMOGLOBIN 23.1 pg (27.0-31.0); RED BLOOD COUNT 4.07 Mil/cmm (3.80-5.10)
[2018-09-26 12:44] LABS: % BASOPHILS 0.4 % (0.0-2.0); % EOSINOPHILS 1.6 % (0.0-5.0); % LYMPHOCYTES 17.1 % (20.0-50.0); % MONOCYTES 7.5 % (2.0-10.0); % NEUTROPHILS 73.4 % (40.0-80.0); EOSINOPHILE ABSOLUTE 0.1 Th/cmm (0.1-0.4); LYMPHOCYTE ABSOLUTE 1.5 Th/cmm (1.5-3.0); MEAN CORPUSCULAR HGB CONC 31.4 pg (28.0-36.0); MONOCYTE ABSOLUTE 0.7 Th/cmm (0.3-1.0); NEUTROPHILE ABSOLUTE 6.6 Th/cmm (1.8-8.0); PLATELET COUNT 405 Th/cmm (150-400); RED CELL DISTRIBUTION WIDTH 27.7 % (11.5-20.0)
--- NOTE | 2018-09-26 12:46 | Internal Medicine Prog Note ---
Internal Medicine Subjective - Subjective Patient seen and examined:: with staff, chart reviewed Patient is:: awake, verbal, interactive, in bed Per staff patient has:: no adverse event, no episodes of fall, poor appetite, tolerating meds Internal Medicine Objective - Results Result Diagrams: 09/25/18 21:18 09/26/18 09:30 Recent Labs: Laboratory Last Values WBC 10.0 Th/cmm (4.8-10.8) 09/25/18 21:18 RBC 2.19 Mil/cmm (3.80-5.10) L 09/25/18 21:18 Hgb 3.6 gm/dL (12-16) L* 09/25/18 21:18 Hct 12.4 % (41.0-60) L* 09/25/18 21:18 MCV 56.7 fl (81-100) L 09/25/18 21:18 MCH 16.5 pg (27.0-31.0) L 09/25/18 21:18 MCHC Differential 29.1 pg (28.0-36.0) 09/25/18 21:18 RDW 23.4 % (11.5-20.0) H 09/25/18 21:18 Plt Count 601 Th/cmm (150-400) H 09/25/18 21:18 MPV 7.2 fl 09/25/18 21:18 Neutrophils % 68.6 % (40.0-80.0) 09/25/18 21:18 Lymphocytes % 20.8 % (20.0-50.0) 09/25/18 21:18 Monocytes % 8.0 % (2.0-10.0) 09/25/18 21:18 Eosinophils % 2.2 % (0.0-5.0) 09/25/18 21:18 Basophils % 0.4 % (0.0-2.0) 09/25/18 21:18 PT 10.1 SECONDS (9.5-11.5) 09/25/18 18:50 INR 0.97 (0.5-1.4) 09/25/18 18:50 PTT (Actin FS) 21.5 SECONDS (26.0-38.0) L 09/25/18 18:50 Sodium 135 mEq/L (136-145) L 09/26/18 09:30 Potassium 3.7 mEq/L (3.5-5.1) 09/26/18 09:30 Chloride 105 mEq/L (98-107) 09/26/18 09:30 Carbon Dioxide 24.9 mEq/L (21.0-31.0) 09/26/18 09:30 Anion Gap 8.8 (7.0-16.0) 09/26/18 09:30 BUN 8 mg/dL (7-25) 09/26/18 09:30 Creatinine 0.4 mg/dL (0.6-1.2) L 09/26/18 09:30 Est GFR ( Amer) > 60.0 ml/min (>90) 09/26/18 09:30 Est GFR (Non-Af Amer) > 60.0 ml/min 09/26/18 09:30 BUN/Creatinine Ratio 20.0 09/26/18 09:30 Glucose 137 mg/dL (70-105) H 09/26/18 09:30 Whole Bld Lactic Acid 1.66 mmol/L (0.60-1.99) 09/25/18 18:50 Calcium 7.8 mg/dL (8.6-10.3) L 09/26/18 09:30 Total Bilirubin 0.2 mg/dL (0.3-1.0) L 09/25/18 18:50 AST 12 U/L (13-39) L 09/25/18 18:50 ALT 9 U/L (7-52) 09/25/18 18:50 Alkaline Phosphatase 60 U/L (34-104) 09/25/18 18:50 Creatine Kinase 46 U/L (30-223) 09/25/18 18:50 Troponin I 0.18 ng/mL (0.01-0.05) H* D 09/25/18 18:50 B-Natriuretic Peptide 47.1 pg/mL (5.0-100.0) 09/26/18 09:30 Total Protein 5.3 gm/dL (6.0-8.3) L 09/25/18 18:50 Albumin 3.0 gm/dL (3.7-5.3) L 09/25/18 18:50 Globulin 2.3 gm/dL 09/25/18 18:50 Albumin/Globulin Ratio 1.3 (1.0-1.8) 09/25/18 18:50 TSH 3.62 uIU/ml (0.34-5.60) 09/26/18 09:30 Urine Source MID[place] 09/26/18 11:15 Urine Color YELLOW 09/26/18 11:15 Urine Clarity CLEAR (CLEAR) 09/26/18 11:15 Urine pH 6.5 (4.6 - 8.0) 09/26/18 11:15 Ur Specific [place] <= 1.005 (1.005-1.030) 09/26/18 11:15 Urine Protein NEGATIVE mg/dL (NEGATIVE) 09/26/18 11:15 Urine Glucose (UA) NEGATIVE mg/dL (NEGATIVE) 09/26/18 11:15 Urine Ketones NEGATIVE mg/dL (NEGATIVE) 09/26/18 11:15 Urine Blood NEGATIVE (NEGATIVE) 09/26/18 11:15 Urine Nitrate NEGATIVE (NEGATIVE) 09/26/18 11:15 Urine Bilirubin NEGATIVE (NEGATIVE) 09/26/18 11:15 Urine Urobilinogen 0.2 E.U./dL (0.2 - 1.0) 09/26/18 11:15 Ur Leukocyte Esterase NEGATIVE (NEGATIVE) 09/26/18 11:15 Rheumatoid Factor 84.1 IU/mL (0.0-13.9) H 09/25/18 21:18 Blood Type O POSITIVE 09/25/18 18:50 Antibody Screen NEGATIVE 09/25/18 18:50 Crossmatch See Detail 09/25/18 18:50 - Physical Exam Vitals and I&O: Vital Signs Temp 97.9 F 09/26/18 11:00 Pulse 78 09/26/18 11:00 Resp 23 09/26/18 11:00 BP 106/69 09/26/18 11:00 Pulse Ox 96 09/26/18 11:00 Intake & Output 09/25/18 09/26/18 09/26/18 18:59 06:59 18:59 Intake Total 300 660 Balance 300 660 Weight (lbs) 68.039 kg 64.864 kg Intake: Intake, IV Amount 660 D5-0.45NS 1,000 ml @ 80 660 mls/hr IV .[id number] [facility] Rx #:[id number] Oral 300 Other: # Voids 5 # Bowel Movements 0 Weight Source Patient stated Bedscale Active Medications: Current Medications Acetaminophen (Tylenol) 650 mg PO Q6HR PRN PRN Reason: Pain (Mild) Stop: 11/24/18 20:39 Acetaminophen (Tylenol) 650 mg PO Q4H PRN PRN Reason: Pain Or Fever above 101 Stop: 11/24/18 20:43 Al Hydrox/Mg Hydrox/Simethicone (Maalox) 30 ml PO Q4H PRN PRN Reason: gi upset Stop: 11/24/18 20:39 Albuterol Sulfate (Albuterol 2.5mg/3ml Neb Ud) 2.5 mg HHN Q2HRT PRN PRN Reason: Shortness of Breath or Wheeze Stop: 11/24/18 20:40 Artificial Tears (Artificial Tears Ophth Soln) 1 drop EACH EYE BID PRN PRN Reason: DRY EYES Stop: 11/25/18 09:08 Benztropine Mesylate (Cogentin) 0.5 mg PO BID [facility] Stop: 11/25/18 08:59 Last Admin: 09/26/18 09:01 Dose: 0.5 mg Bisacodyl (Dulcolax 10 Mg Supp) 10 mg RC DAILY PRN PRN Reason: Constipation Stop: 11/24/18 20:39 Bisacodyl (Dulcolax 5 Mg Ec Tab) 10 mg PO X1 ONE Stop: 09/26/18 16:01 Docusate Sodium (Colace) 100 mg PO DAILY [facility] Stop: 11/25/18 08:59 Last Admin: 09/26/18 09:00 Dose: 100 mg Guaifenesin (Robitussin) 200 mg PO Q4HR PRN PRN Reason: Cough or Congestion Stop: 11/24/18 20:43 Magnesium Hydroxide (Milk Of Magnesia) 30 ml PO DAILY PRN PRN Reason: Constipation Stop: 11/24/18 20:39 Nitroglycerin (Nitrostat) 0.4 mg SL Q5MIN PRN PRN Reason: Chest Pain Stop: 11/24/18 20:43 Ondansetron HCl (Zofran) 4 mg IV Q8H PRN PRN Reason: Nausea / Vomiting Stop: 11/24/18 20:43 Pantoprazole Sodium (Protonix) 40 mg IVP BID [facility] Stop: 11/24/18 21:59 Last Admin: 09/26/18 09:00 Dose: 40 mg Polyethylene Glycol/Electrolytes (Golytely) 4,000 ml PO X1 ONE Stop: 09/26/18 19:01 Risperidone (Risperdal) 0.25 mg PO BID [facility]; Protocol Stop: 11/25/18 08:59 Last Admin: 09/26/18 09:00 Dose: 0.25 mg Zolpidem Tartrate (Ambien) 10 mg PO HS PRN PRN Reason: Insomnia Stop: 11/24/18 20:40 General: alert HEENT: NC/AT, PERRLA Neck: Supple Lungs: rales Cardiovascular: RRR, Normal S1, Normal S2, without murmur Abdomen: soft, globular, positive bowel sound Extremities: excoriation Neurological: no change, alert, muscle weakness, bedbound - Procedures Procedures: Procedures Procedure Code Date BLOOD TRANSFUSION SERVICE 80608 11/15/16 EGD BIOPSY SINGLE/MULTIPLE 85461 09/03/15 EXCISION OF SMALL INTESTINE, ENDO, DIAGN [id number] 09/03/15 TRANSFUSE NONAUT RED BLOOD CELLS IN PERIPH VEIN, PERC 49817P0 09/25/18 Internal Medicine Assmt/Plan - Assessment Assessment: ASSESSMENT: 1. Severe anemia, rule out gastrointestinal bleeding. 2. Thrombocytosis. 3. Hyperglycemia. 4. Elevated troponin, possibly secondary to severe anemia. 5. Low albumin. 6. History of stroke. 7. Psych disorder. 8. History of rheumatoid arthritis. - Plan Plan: PLAN: We will continue the patient on IV proton pump inhibitor. We will transfuse the patient. We will refer the patient to GI as well as Hematology. We will check SHAHAB __rf__. We will continue to monitor the patient in the ICU setting.
[2018-09-26] MEDS: Albuterol Nebulizer 2.5mg/3mL HHN PRN (15:42)
--- NOTE | 2018-09-26 16:47 | Consultation ---
DATE OF CONSULTATION: 09/26/2018 INPATIENT GASTROINTESTINAL CONSULTATION CONSULTING PHYSICIAN: Dr. Coppola. REASON FOR CONSULTATION: Microcytic anemia. HISTORY OF PRESENT ILLNESS: The patient is a 58-year-old female with past medical history significant for stroke in the past, hyperlipidemia, rheumatoid arthritis and anemia who has been brought into the hospital from a nursing facility for hemoglobin of 3. The patient denies any overt GI bleeding and the nursing staff here at her facility has not seen any overt GI bleeding, but given the profound anemia that was found on routine labs, she was sent to the ER. Of note, this is not the first time the patient has been admitted to this hospital for this issue and was admitted with hemoglobin of 5 in 2017 as well as 2016. As far as the records go, it looks like she had an EGD done in August 2015 that was unremarkable and a barium enema in 2017 that only showed diverticulosis. However, I am unable to see if she has ever had a colonoscopy done. PAST MEDICAL HISTORY: Stroke in the past, rheumatoid arthritis, psychosis, hyperlipidemia. PAST SURGICAL HISTORY: Denies any abdominal surgery. FAMILY HISTORY: Noncontributory. SOCIAL HISTORY: The patient is at a nursing facility. She denies any illicit drug use or alcoholism. ALLERGIES: There are no known drug allergies. REVIEW OF SYSTEMS: A 12-point review of systems was performed in the patient's negative and the pertinent positives mentioned in the history of present illness. CURRENT MEDICATIONS: Include Tylenol, Maalox, albuterol, Cogentin, Dulcolax, IV fluid, Colace, Robitussin, milk of magnesia, Zofran, Protonix, risperidone, Ambien. PHYSICAL EXAMINATION: VITAL SIGNS: Blood pressure is 114/72, pulse is 80 beats per minute, respiratory rate of 20, temperature 97.7. GENERAL: The patient is lying on her back. She is alert and oriented x 3. She does not appear to be in acute distress. HEAD, EARS, EYES, NOSE AND THROAT: Normocephalic, atraumatic appearing head. Pupils are equal and reactive. She does have some facial droop on the left side. NECK: Supple. There is no JVD or thyromegaly. CHEST: Clear to auscultation. CARDIOVASCULAR: S1, S2 are present, regular rate and rhythm. ABDOMEN: Obese, soft, nontender to palpation. No guarding or rebound. No fluid distention. EXTREMITIES: 1+ pitting edema bilaterally. Pulses are not present. SKIN: There is no jaundice. LABORATORY DATA: White blood cell count is 10.0. The hemoglobin is 3.6, platelet count is 601. The MCV is 56.7, INR 0.9. BUN 13, creatinine 0.6. Troponin 0.18, AST 12, ALT 9. No abdominal imaging has been performed. IMPRESSION: 1. This is a 58-year-old female with history of anemia, rheumatoid arthritis, previous stroke, hyperlipidemia, admitted to the hospital with microcytic anemia. 2. Microcytic anemia. 3. Rheumatoid arthritis. 4. Previous stroke. 5. Hyperlipidemia. DISCUSSION: Certainly this is a profound anemia and microcytic in nature. We do not have iron studies on this admission, but iron studies from 2017 did show also iron deficiency. She does need a full endoscopic workup to rule out GI causes of microcytic anemia including colon and stomach cancer. She had a barium enema in 2017, but this is not sufficient to rule out colon cancer if a colonoscopy can be done; however, I do suspect that this possibly may not be GI causes and she may be suffering either hemolytic anemia or autoimmune anemia of some sort given the rheumatoid arthritis history and Hematology consult should be obtained. RECOMMENDATIONS: 1. We will plan for EGD and colonoscopy in the morning to evaluate for GI cause of anemia as stated above. 2. I do recommend Hematology consultation as I suspect that this is likely not going to be a GI source of blood loss ultimately. 3. Clear liquids today. 4. Bowel preparation tonight with 4 liters of GoLYTELY and Dulcolax. 5. N.p.o. at midnight. Thank you for allowing me to participate in her care. Please call with any questions. JOB# [id number]
[2018-09-27 05:20] LABS: HEMATOCRIT 31.7 % (41.0-60); MEAN CELL VOLUME 72.8 fl (81-100); MEAN CORPUSCULAR HEMOGLOBIN 22.9 pg (27.0-31.0); MEAN CORPUSCULAR HGB CONC 31.5 pg (28.0-36.0); PLATELET COUNT 470 Th/cmm (150-400); RED BLOOD COUNT 4.35 Mil/cmm (3.80-5.10); RED CELL DISTRIBUTION WIDTH 27.6 % (11.5-20.0)
[2018-09-27 05:25] LABS: INR 0.96 (0.5-1.4)
[2018-09-27 05:39] LABS: WHITE BLOOD COUNT 18.3 Th/cmm (4.8-10.8)
[2018-09-27 06:28] LABS: BAND NEUTROPHILE 0 % (0-10); LYMPHOCYTE 7 % (20-50); NEUTROPHILS 87 % (40-80)
[2018-09-27 06:29] LABS: BASOPHIL 0 % (0-3); EOSINOPHIL 0 % (0-5); MONOCYTE 6 % (2-10); PLATELET ESTIMATE INCREASED PLATELETS (NORMAL)
[2018-09-27] MEDS ORDERED: Lidocaine 2% Gel 5 mL TP ONE (07:50)
[2018-09-27] MEDS ORDERED: Propofol 10 mg/mL 20mL Vial **SURGERY USE ONLY IV ONE (07:50)
[2018-09-27 08:13] LABS: IRON LC 16 ug/dL (27-159); TIBC (LC) 475 ug/dL (250-450); UIBC 459 ug/dL (131-425)
[2018-09-27] MEDS ORDERED: Naloxone 0.4 mg/mL 1mL Vial ONE (08:41)
--- NOTE | 2018-09-27 08:58 | Diagnostic Imaging Report ---
Right lower extremity DVT study HISTORY: Pain COMPARISON: None Technique: Longitudinal and transverse sonographic images of the right lower extremity veins were obtained with doppler analysis. Note patient refused scanning of the left side. FINDINGS: There is normal compressibility, augmentation and phasicity of the right common femoral, superficial femoral, popliteal, and posterior tibial veins. No thrombus is visualized. IMPRESSION: No evidence of thrombus within the right lower extremity veins. Note patient refused scanning of the left side. If indicated short-term follow-up left lower extremity ultrasound venous Doppler may be obtained.
[2018-09-27] MEDS: Albuterol Nebulizer 2.5mg/3mL HHN PRN (10:22)
--- NOTE | 2018-09-27 11:28 | Operative Report ---
DATE OF SURGERY: 09/27/2018 INPATIENT EGD AND COLONOSCOPY REPORT PROCEDURES PERFORMED: EGD with biopsy, colonoscopy. ENDOSCOPIST: Phil Christensen M.D. PREOPERATIVE DIAGNOSIS: Microcytic anemia. POSTOPERATIVE DIAGNOSES: Large hiatal hernia, gastric ulcer, diverticulosis, internal hemorrhoids. INDICATION: The patient is a 58-year-old female with a history of stroke and residual neurologic deficits who was admitted to the hospital after being found to have a hemoglobin of 3, microcytic in nature. She is here for EGD and colonoscopy to rule out GI causes of her anemia. CONSENT: Informed consent was obtained from the patient and the patient's healthcare proxy. The risks and benefits of the procedure were discussed including but are not limited to infection, bleeding, perforation, need for surgery, cardiopulmonary complications, missed pathology and . The patient and her healthcare proxy indicated they understood these risks and wished to go forward with the procedure and signed a consent form. ANESTHESIA: Anesthesia was administered by an anesthesiologist in the operating room using propofol. PROCEDURE IN DETAIL: The patient was hooked up to the appropriate monitoring devices including blood pressure, pulse and pulse oximetry. An IV was in place. Oxygen was delivered via nasal cannula throughout the procedure. IV sedating medication was given in divided doses under the direction of the physician. The patient was in the left lateral decubitus position and a mouthpiece was inserted and secured. A gastroscope was introduced in the mouth and guided under direct visualization to the level of the esophagus, stomach and then duodenum. The scope was slowly and carefully withdrawn, making sure to examine the entire mucosa in a careful and systematic fashion. Retroflexion was performed in the stomach prior to scope straightening and withdrawal from the body. Next, the patient was repositioned to the colonoscopy position and the rectal exam was performed. A colonoscope was introduced into the anus and guided under direct visualization to the level of the cecum, which was confirmed by the presence of the appendiceal orifice and IC valve, which was photographed. The scope was slowly and carefully withdrawn, making sure to examine the entire mucosa in a careful and systematic fashion. Retroflexion was performed in the rectum prior to scope straightening and withdrawal from the body. There was no complication at the end of the procedure. However, of note, the patient did have desaturation prior to the start of the endoscopy and the anesthesiologist did administer one single dose of Narcan and the patient did respond to this well. FINDINGS: EGD PORTION: Esophagus, the endogastric folds were at 30 cm from the incisors while the diaphragmatic pinch was at 40 cm from the incisors. This indicates a large 10-cm hiatal hernia. Within the hernia sac near the distal edge, there was a large gastric ulcer. This did not appear to be a malignant ulcer, but looked more to may be a Lior's ulcer. Biopsies were taken from this area specifically. There were no other mass lesions in the stomach. Biopsy was taken from the antrum for H. pylori evaluation. DUODENUM: Duodenal bulb and second portion appeared endoscopically normal. COLONOSCOPY PORTION: The [place] bowel prep score was 2 in all segments of the colon. Polyps less than 5 mm may have been missed given the quality of the bowel prep; however, there were no mass lesions found on the examination. No polyps were seen. There was mild diverticulosis scattered throughout the colon. In the rectum on retroflex view, there were small internal hemorrhoids. IMPRESSION: 1. Large 10-cm hiatal hernia. 2. Large ulcer within the hernia sac. 3. Mild diverticulosis. 4. Small internal hemorrhoids. DISCUSSION: It is possible that this patient's iron-deficiency anemia may be result of the large hiatal hernia and the ulceration within the hernia. This can be tried to be treated with iron supplementation and PPI therapy. However, if this fails, then the only correction would be surgical repair of the hernia. However, I do think that a hematologic evaluation should be undertaken to ensure that we are not missing something there. RECOMMENDATIONS: 1. She can restart her diet today and advance as tolerated. 2. Iron supplementation recommended. 3. PPI double dose for 4 weeks and then single dosing after that. 4. Recommend Hematology evaluation. 5. If she fails to respond to iron therapy and PPI and hematology evaluation is negative, then I would recommend a surgical consult for hernia repair. 6. Next colonoscopy will be due in 10 years' time. Thank you for allowing me to participate in her care. Please call with any questions. JOB# [id number]
--- NOTE | 2018-09-27 12:32 | Internal Medicine Prog Note ---
Internal Medicine Subjective - Subjective Patient seen and examined:: with staff, chart reviewed Patient is:: awake, verbal, interactive, in bed Per staff patient has:: no adverse event, no episodes of fall, poor appetite, tolerating meds Internal Medicine Objective - Results Result Diagrams: 09/27/18 04:30 09/26/18 09:30 Recent Labs: Laboratory Last Values WBC 18.3 Th/cmm (4.8-10.8) H D 09/27/18 04:30 RBC 4.35 Mil/cmm (3.80-5.10) 09/27/18 04:30 Hgb 10.0 gm/dL (12-16) L 09/27/18 04:30 Hct 31.7 % (41.0-60) L 09/27/18 04:30 MCV 72.8 fl (81-100) L 09/27/18 04:30 MCH 22.9 pg (27.0-31.0) L 09/27/18 04:30 MCHC Differential 31.5 pg (28.0-36.0) 09/27/18 04:30 RDW 27.6 % (11.5-20.0) H 09/27/18 04:30 Plt Count 470 Th/cmm (150-400) H 09/27/18 04:30 MPV 8.0 fl 09/27/18 04:30 Add Manual Diff YES 09/27/18 04:30 Neutrophils % 73.4 % (40.0-80.0) 09/26/18 09:30 Band Neutrophils % 0 % (0-10) 09/27/18 04:30 Lymphocytes % 17.1 % (20.0-50.0) L 09/26/18 09:30 Monocytes % 7.5 % (2.0-10.0) 09/26/18 09:30 Eosinophils % 1.6 % (0.0-5.0) 09/26/18 09:30 Basophils % 0.4 % (0.0-2.0) 09/26/18 09:30 Neutrophils (Manual) 87 % (40-80) H 09/27/18 04:30 Lymphocytes 7 % (20-50) L 09/27/18 04:30 Monocytes 6 % (2-10) 09/27/18 04:30 Eosinophils 0 % (0-5) 09/27/18 04:30 Basophils 0 % (0-3) 09/27/18 04:30 Platelet Estimate INCREASED PLATELETS (NORMAL) 09/27/18 04:30 PT 10.0 SECONDS (9.5-11.5) 09/27/18 04:30 INR 0.96 (0.5-1.4) 09/27/18 04:30 PTT (Actin FS) 21.5 SECONDS (26.0-38.0) L 09/25/18 18:50 Sodium 135 mEq/L (136-145) L 09/26/18 09:30 Potassium 3.7 mEq/L (3.5-5.1) 09/26/18 09:30 Chloride 105 mEq/L (98-107) 09/26/18 09:30 Carbon Dioxide 24.9 mEq/L (21.0-31.0) 09/26/18 09:30 Anion Gap 8.8 (7.0-16.0) 09/26/18 09:30 BUN 8 mg/dL (7-25) 09/26/18 09:30 Creatinine 0.4 mg/dL (0.6-1.2) L 09/26/18 09:30 Est GFR ( Amer) > 60.0 ml/min (>90) 09/26/18 09:30 Est GFR (Non-Af Amer) > 60.0 ml/min 09/26/18 09:30 BUN/Creatinine Ratio 20.0 09/26/18 09:30 Glucose 137 mg/dL (70-105) H 09/26/18 09:30 Whole Bld Lactic Acid 1.66 mmol/L (0.60-1.99) 09/25/18 18:50 Calcium 7.8 mg/dL (8.6-10.3) L 09/26/18 09:30 Iron 16 ug/dL (27-159) L 09/26/18 09:30 TIBC 475 ug/dL (250-450) H 09/26/18 09:30 Iron Saturation 3 % (15-55) L 09/26/18 09:30 Unsaturated IBC 459 ug/dL (131-425) H 09/26/18 09:30 Total Bilirubin 0.2 mg/dL (0.3-1.0) L 09/25/18 18:50 AST 12 U/L (13-39) L 09/25/18 18:50 ALT 9 U/L (7-52) 09/25/18 18:50 Alkaline Phosphatase 60 U/L (34-104) 09/25/18 18:50 Creatine Kinase 46 U/L (30-223) 09/25/18 18:50 Troponin I 0.18 ng/mL (0.01-0.05) H* D 09/25/18 18:50 B-Natriuretic Peptide 47.1 pg/mL (5.0-100.0) 09/26/18 09:30 Total Protein 5.3 gm/dL (6.0-8.3) L 09/25/18 18:50 Albumin 3.0 gm/dL (3.7-5.3) L 09/25/18 18:50 Globulin 2.3 gm/dL 09/25/18 18:50 Albumin/Globulin Ratio 1.3 (1.0-1.8) 09/25/18 18:50 TSH 3.62 uIU/ml (0.34-5.60) 09/26/18 09:30 Urine Source MIDSTREAM 09/26/18 11:15 Urine Color YELLOW 09/26/18 11:15 Urine Clarity CLEAR (CLEAR) 09/26/18 11:15 Urine pH 6.5 (4.6 - 8.0) 09/26/18 11:15 Ur Specific [place] <= 1.005 (1.005-1.030) 09/26/18 11:15 Urine Protein NEGATIVE mg/dL (NEGATIVE) 09/26/18 11:15 Urine Glucose (UA) NEGATIVE mg/dL (NEGATIVE) 09/26/18 11:15 Urine Ketones NEGATIVE mg/dL (NEGATIVE) 09/26/18 11:15 Urine Blood NEGATIVE (NEGATIVE) 09/26/18 11:15 Urine Nitrate NEGATIVE (NEGATIVE) 09/26/18 11:15 Urine Bilirubin NEGATIVE (NEGATIVE) 09/26/18 11:15 Urine Urobilinogen 0.2 E.U./dL (0.2 - 1.0) 09/26/18 11:15 Ur Leukocyte Esterase NEGATIVE (NEGATIVE) 09/26/18 11:15 Rheumatoid Factor 84.1 IU/mL (0.0-13.9) H 09/25/18 21:18 Blood Type O POSITIVE 09/25/18 18:50 Antibody Screen NEGATIVE 09/25/18 18:50 Crossmatch See Detail 09/25/18 18:50 - Physical Exam Vitals and I&O: Vital Signs Temp 98.0 F 09/27/18 08:56 Pulse 94 09/27/18 10:23 Resp 18 09/27/18 10:23 BP 116/71 09/27/18 08:56 Pulse Ox 93 09/27/18 10:23 Intake & Output 09/26/18 09/27/18 09/27/18 18:59 06:59 18:59 Intake Total 660 1500 Balance 660 1500 Weight (lbs) 64.864 kg Intake: Intake, IV Amount 660 500 D5-0.45NS 1,000 ml @ 60 500 mls/hr IV .[id number] [facility] Rx #:[id number] D5-0.45NS 1,000 ml @ 80 660 mls/hr IV .[id number] [facility] Rx #:[id number] Oral 1000 Other: # Voids 6 # Bowel Movements 2 Stool Characteristics Soft Liquid Brown Weight Source Bedscale Active Medications: Current Medications Acetaminophen (Tylenol) 650 mg PO Q6HR PRN PRN Reason: Pain (Mild) Stop: 11/24/18 20:39 Acetaminophen (Tylenol) 650 mg PO Q4H PRN PRN Reason: Pain Or Fever above 101 Stop: 11/24/18 20:43 Last Admin: 09/26/18 16:19 Dose: 650 mg Al Hydrox/Mg Hydrox/Simethicone (Maalox) 30 ml PO Q4H PRN PRN Reason: gi upset Stop: 11/24/18 20:39 Albuterol Sulfate (Albuterol 2.5mg/3ml Neb Ud) 2.5 mg HHN Q2HRT PRN PRN Reason: Shortness of Breath or Wheeze Stop: 11/24/18 20:40 Last Admin: 09/27/18 10:22 Dose: 2.5 mg Artificial Tears (Artificial Tears Ophth Soln) 1 drop EACH EYE BID PRN PRN Reason: DRY EYES Stop: 11/25/18 09:08 Benztropine Mesylate (Cogentin) 0.5 mg PO BID [facility] Stop: 11/25/18 08:59 Last Admin: 09/27/18 10:50 Dose: Not Given Bisacodyl (Dulcolax 10 Mg Supp) 10 mg RC DAILY PRN PRN Reason: Constipation Stop: 11/24/18 20:39 Docusate Sodium (Colace) 100 mg PO DAILY [facility] Stop: 11/25/18 08:59 Last Admin: 09/27/18 10:50 Dose: Not Given Guaifenesin (Robitussin) 200 mg PO Q4HR PRN PRN Reason: Cough or Congestion Stop: 11/24/18 20:43 Dextrose/Sodium Chloride (D5-0.45ns) 1,000 mls @ 60 mls/hr IV .[id number] [facility] Stop: 11/25/18 12:44 Last Admin: 09/26/18 23:00 Dose: 60 mls/hr Cefepime HCl 1 gm/ Dextrose 50 mls @ 100 mls/hr IV Q12H [facility] Stop: 11/26/18 12:29 Magnesium Hydroxide (Milk Of Magnesia) 30 ml PO DAILY PRN PRN Reason: Constipation Stop: 11/24/18 20:39 Mupirocin (Bactroban Oint) 1 appl NS BID [facility] Stop: 10/02/18 09:01 Nitroglycerin (Nitrostat) 0.4 mg SL Q5MIN PRN PRN Reason: Chest Pain Stop: 11/24/18 20:43 Ondansetron HCl (Zofran) 4 mg IV Q8H PRN PRN Reason: Nausea / Vomiting Stop: 11/24/18 20:43 Pantoprazole Sodium (Protonix) 40 mg IVP BID [facility] Stop: 11/24/18 21:59 Last Admin: 09/27/18 10:55 Dose: Not Given Risperidone (Risperdal) 0.25 mg PO BID [facility]; Protocol Stop: 11/25/18 08:59 Last Admin: 09/27/18 10:55 Dose: Not Given Zolpidem Tartrate (Ambien) 10 mg PO HS PRN PRN Reason: Insomnia Stop: 11/24/18 20:40 General: alert HEENT: NC/AT, PERRLA Neck: Supple Lungs: rales Cardiovascular: RRR, Normal S1, Normal S2, without murmur Abdomen: soft, globular, positive bowel sound Extremities: excoriation Neurological: no change, alert, muscle weakness, bedbound - Procedures Procedures: Procedures Procedure Code Date BLOOD TRANSFUSION SERVICE 91929 11/15/16 EGD BIOPSY SINGLE/MULTIPLE 11940 09/03/15 EXCISION OF SMALL INTESTINE, ENDO, DIAGN [id number] 09/03/15 TRANSFUSE NONAUT RED BLOOD CELLS IN PERIPH VEIN, PERC 63793Y8 09/25/18 Internal Medicine Assmt/Plan - Assessment Assessment: ASSESSMENT: 1. Severe anemia, rule out gastrointestinal bleeding. 2. Thrombocytosis. 3. Hyperglycemia. 4. Elevated troponin, possibly secondary to severe anemia. 5. Low albumin. 6. History of stroke. 7. Psych disorder. 8. History of rheumatoid arthritis. leukocytosis - Plan Plan: PLAN: We will continue the patient on IV proton pump inhibitor. We will transfuse the patient. We will refer the patient to GI as well as Hematology. We will check SHAHAB __rf__. We will continue to monitor the patient in the ICU setting. start on maxipime
[2018-09-27 13:10] LABS: FOLIC ACID 9.9 ng/mL (>3.0)
--- NOTE | 2018-09-27 13:26 | Diagnostic Imaging Report ---
CHEST X-RAY: AP view INDICATION: Shortness of breath COMPARISON: 09/25/2018 FINDINGS: Developing CHF is seen with bilateral perihilar infiltrates right greater than left. Mild cardiomegaly is noted. IMPRESSION: Developing CHF with bilateral perihilar infiltrates greatest along the right base. Mild cardiomegaly.
[2018-09-27 16:10] LABS: A1C 6.7 % (4.8-5.6)
[2018-09-27] MEDS: D5-0.45NS 1,000 ML IV SCH (23:11)
[2018-09-28 05:31] LABS: HEMATOCRIT 30.9 % (41.0-60); HEMOGLOBIN 9.7 gm/dL (12-16); MEAN CORPUSCULAR HGB CONC 31.5 pg (28.0-36.0); PLATELET COUNT 448 Th/cmm (150-400); RED BLOOD COUNT 4.23 Mil/cmm (3.80-5.10); RED CELL DISTRIBUTION WIDTH 28.4 % (11.5-20.0); WHITE BLOOD COUNT 11.5 Th/cmm (4.8-10.8)
[2018-09-28 05:46] LABS: ALB/GLOB RATIO 1.2 (1.0-1.8); ALKALINE PHOSPHATASE 83 U/L (34-104); ANION GAP 7.6 (7.0-16.0); BILIRUBIN,TOTAL 0.4 mg/dL (0.3-1.0); BUN - UREA NITROGEN 5 mg/dL (7-25); CALCIUM SERUM 8.1 mg/dL (8.6-10.3); CARBON DIOXIDE 29.1 mEq/L (21.0-31.0); CHLORIDE 104 mEq/L (98-107); CREATININE - SERUM 0.5 mg/dL (0.6-1.2); GFR AFRICAN-AMERICAN > 60.0 ml/min (>90); GFR NON AFRICAN-AMERICAN > 60.0 ml/min; GLUCOSE 138 mg/dL (70-105); MAGNESIUM 2.2 mg/dL (1.9-2.7); POTASSIUM SERUM 3.7 mEq/L (3.5-5.1); SGOT 20 U/L (13-39); SGPT/ALT 23 U/L (7-52); SODIUM SERUM 137 mEq/L (136-145); TOTAL PROTEIN,SERUM 5.5 gm/dL (6.0-8.3)
[2018-09-28 07:16] LABS: BAND NEUTROPHILE 0 % (0-10); BASOPHIL 0 % (0-3); EOSINOPHIL 0 % (0-5); LYMPHOCYTE 18 % (20-50); MONOCYTE 9 % (2-10); NEUTROPHILS 73 % (40-80); PLATELET ESTIMATE INCREASED PLATELETS (NORMAL)
[2018-09-28 07:17] LABS: ANISOCYTOSIS 2+
[2018-09-28 07:18] LABS: ROULEAUX 1+
--- NOTE | 2018-09-28 08:06 | GI Progress Note ---
Subjective - Review of Systems Subjective: NO EVENTS GI OBJECTIVE - Results Result Diagrams: 09/28/18 05:10 09/28/18 05:10 Recent Labs: Laboratory Last Values WBC 11.5 Th/cmm (4.8-10.8) H 09/28/18 05:10 RBC 4.23 Mil/cmm (3.80-5.10) 09/28/18 05:10 Hgb 9.7 gm/dL (12-16) L 09/28/18 05:10 Hct 30.9 % (41.0-60) L 09/28/18 05:10 MCV 73.0 fl (81-100) L 09/28/18 05:10 MCH 23.0 pg (27.0-31.0) L 09/28/18 05:10 MCHC Differential 31.5 pg (28.0-36.0) 09/28/18 05:10 RDW 28.4 % (11.5-20.0) H 09/28/18 05:10 Plt Count 448 Th/cmm (150-400) H 09/28/18 05:10 MPV 7.5 fl 09/28/18 05:10 Add Manual Diff YES 09/28/18 05:10 Neutrophils % 73.4 % (40.0-80.0) 09/26/18 09:30 Band Neutrophils % 0 % (0-10) 09/28/18 05:10 Lymphocytes % 17.1 % (20.0-50.0) L 09/26/18 09:30 Monocytes % 7.5 % (2.0-10.0) 09/26/18 09:30 Eosinophils % 1.6 % (0.0-5.0) 09/26/18 09:30 Basophils % 0.4 % (0.0-2.0) 09/26/18 09:30 Neutrophils (Manual) 73 % (40-80) 09/28/18 05:10 Lymphocytes 18 % (20-50) L 09/28/18 05:10 Monocytes 9 % (2-10) 09/28/18 05:10 Eosinophils 0 % (0-5) 09/28/18 05:10 Basophils 0 % (0-3) 09/28/18 05:10 Platelet Estimate INCREASED PLATELETS (NORMAL) 09/28/18 05:10 Anisocytosis 2+ 09/28/18 05:10 Microcytosis 2+ 09/28/18 05:10 Rouleaux 1+ 09/28/18 05:10 PT 10.0 SECONDS (9.5-11.5) 09/27/18 04:30 INR 0.96 (0.5-1.4) 09/27/18 04:30 PTT (Actin FS) 21.5 SECONDS (26.0-38.0) L 09/25/18 18:50 Sodium 137 mEq/L (136-145) 09/28/18 05:10 Potassium 3.7 mEq/L (3.5-5.1) 09/28/18 05:10 Chloride 104 mEq/L (98-107) 09/28/18 05:10 Carbon Dioxide 29.1 mEq/L (21.0-31.0) 09/28/18 05:10 Anion Gap 7.6 (7.0-16.0) 09/28/18 05:10 BUN 5 mg/dL (7-25) L 09/28/18 05:10 Creatinine 0.5 mg/dL (0.6-1.2) L 09/28/18 05:10 Est GFR ( Amer) > 60.0 ml/min (>90) 09/28/18 05:10 Est GFR (Non-Af Amer) > 60.0 ml/min 09/28/18 05:10 BUN/Creatinine Ratio 10.0 09/28/18 05:10 Glucose 138 mg/dL (70-105) H 09/28/18 05:10 Whole Bld Lactic Acid 1.66 mmol/L (0.60-1.99) 09/25/18 18:50 Calcium 8.1 mg/dL (8.6-10.3) L 09/28/18 05:10 Magnesium 2.2 mg/dL (1.9-2.7) 09/28/18 05:10 Iron 16 ug/dL (27-159) L 09/26/18 09:30 TIBC 475 ug/dL (250-450) H 09/26/18 09:30 Iron Saturation 3 % (15-55) L 09/26/18 09:30 Unsaturated IBC 459 ug/dL (131-425) H 09/26/18 09:30 Ferritin 5 ng/mL (15-150) L 09/26/18 09:30 Total Bilirubin 0.4 mg/dL (0.3-1.0) 09/28/18 05:10 AST 20 U/L (13-39) 09/28/18 05:10 ALT 23 U/L (7-52) 09/28/18 05:10 Alkaline Phosphatase 83 U/L (34-104) 09/28/18 05:10 Creatine Kinase 46 U/L (30-223) 09/25/18 18:50 Troponin I 0.18 ng/mL (0.01-0.05) H* D 09/25/18 18:50 B-Natriuretic Peptide 116.0 pg/mL (5.0-100.0) H 09/28/18 05:10 Total Protein 5.5 gm/dL (6.0-8.3) L 09/28/18 05:10 Albumin 3.0 gm/dL (3.7-5.3) L 09/28/18 05:10 Globulin 2.5 gm/dL 09/28/18 05:10 Albumin/Globulin Ratio 1.2 (1.0-1.8) 09/28/18 05:10 Vitamin B12 433 pg/mL (232-1245) 09/26/18 09:30 Folic Acid 9.9 ng/mL (>3.0) 09/26/18 09:30 TSH 3.62 uIU/ml (0.34-5.60) 09/26/18 09:30 Urine Source MIDSTREAM 09/26/18 11:15 Urine Color YELLOW 09/26/18 11:15 Urine Clarity CLEAR (CLEAR) 09/26/18 11:15 Urine pH 6.5 (4.6 - 8.0) 09/26/18 11:15 Ur Specific [place] <= 1.005 (1.005-1.030) 09/26/18 11:15 Urine Protein NEGATIVE mg/dL (NEGATIVE) 09/26/18 11:15 Urine Glucose (UA) NEGATIVE mg/dL (NEGATIVE) 09/26/18 11:15 Urine Ketones NEGATIVE mg/dL (NEGATIVE) 09/26/18 11:15 Urine Blood NEGATIVE (NEGATIVE) 09/26/18 11:15 Urine Nitrate NEGATIVE (NEGATIVE) 09/26/18 11:15 Urine Bilirubin NEGATIVE (NEGATIVE) 09/26/18 11:15 Urine Urobilinogen 0.2 E.U./dL (0.2 - 1.0) 09/26/18 11:15 Ur Leukocyte Esterase NEGATIVE (NEGATIVE) 09/26/18 11:15 Rheumatoid Factor 84.1 IU/mL (0.0-13.9) H 09/25/18 21:18 Blood Type O POSITIVE 09/25/18 18:50 Antibody Screen NEGATIVE 09/25/18 18:50 Crossmatch See Detail 09/25/18 18:50 - Physical Exam Vitals and I&O: Vital Signs Temp 98.6 F 09/28/18 03:58 Pulse 98 09/28/18 03:58 Resp 19 09/28/18 03:58 BP 116/72 09/28/18 03:58 Pulse Ox 95 09/28/18 03:58 Intake & Output 09/27/18 09/28/18 09/28/18 18:59 06:59 18:59 Intake Total 1310 250 Output Total 2 Balance 1310 248 Weight (lbs) 64.864 kg 64.864 kg Intake: Intake, IV Amount 1050 50 Cefepime 1 gm In Dextrose 50 50 5% 50 ml @ 100 mls/hr IV Q12H [facility] Rx#:[id number] D5-0.45NS 1,000 ml @ 60 1000 mls/hr IV .[id number] [facility] Rx #:[id number] Oral 260 200 Output: Urine 2 Other: # Voids 3 2 # Bowel Movements 1 0 Stool Characteristics Liquid Weight Source Bedscale Bedscale Active Medications: Current Medications Acetaminophen (Tylenol) 650 mg PO Q6HR PRN PRN Reason: Pain (Mild) Stop: 11/24/18 20:39 Acetaminophen (Tylenol) 650 mg PO Q4H PRN PRN Reason: Pain Or Fever above 101 Stop: 11/24/18 20:43 Last Admin: 09/26/18 16:19 Dose: 650 mg Al Hydrox/Mg Hydrox/Simethicone (Maalox) 30 ml PO Q4H PRN PRN Reason: gi upset Stop: 11/24/18 20:39 Albuterol Sulfate (Albuterol 2.5mg/3ml Neb Ud) 2.5 mg HHN Q2HRT PRN PRN Reason: Shortness of Breath or Wheeze Stop: 11/24/18 20:40 Last Admin: 09/27/18 10:22 Dose: 2.5 mg Artificial Tears (Artificial Tears Ophth Soln) 1 drop EACH EYE BID PRN PRN Reason: DRY EYES Stop: 11/25/18 09:08 Benztropine Mesylate (Cogentin) 0.5 mg PO BID [facility] Stop: 11/25/18 08:59 Last Admin: 09/27/18 17:15 Dose: 0.5 mg Bisacodyl (Dulcolax 10 Mg Supp) 10 mg RC DAILY PRN PRN Reason: Constipation Stop: 11/24/18 20:39 Docusate Sodium (Colace) 100 mg PO DAILY [facility] Stop: 11/25/18 08:59 Last Admin: 09/27/18 10:50 Dose: Not Given Guaifenesin (Robitussin) 200 mg PO Q4HR PRN PRN Reason: Cough or Congestion Stop: 11/24/18 20:43 Dextrose/Sodium Chloride (D5-0.45ns) 1,000 mls @ 60 mls/hr IV .[id number] [facility] Stop: 11/25/18 12:44 Last Admin: 09/27/18 23:11 Dose: 60 mls/hr Cefepime HCl 1 gm/ Dextrose 50 mls @ 100 mls/hr IV Q12H [facility] Stop: 11/26/18 12:59 Last Infusion: 09/28/18 00:48 Dose: Infused Magnesium Hydroxide (Milk Of Magnesia) 30 ml PO DAILY PRN PRN Reason: Constipation Stop: 11/24/18 20:39 Mupirocin (Bactroban Oint) 1 appl NS BID [facility] Stop: 10/02/18 09:01 Last Admin: 09/27/18 17:16 Dose: 1 appl Nitroglycerin (Nitrostat) 0.4 mg SL Q5MIN PRN PRN Reason: Chest Pain Stop: 11/24/18 20:43 Ondansetron HCl (Zofran) 4 mg IV Q8H PRN PRN Reason: Nausea / Vomiting Stop: 11/24/18 20:43 Pantoprazole Sodium (Protonix) 40 mg IVP BID [facility] Stop: 11/24/18 21:59 Last Admin: 09/27/18 17:16 Dose: 40 mg Risperidone (Risperdal) 0.25 mg PO BID [facility]; Protocol Stop: 11/25/18 08:59 Last Admin: 09/27/18 17:16 Dose: 0.25 mg Zolpidem Tartrate (Ambien) 10 mg PO HS PRN PRN Reason: Insomnia Stop: 11/24/18 20:40 - Procedures Procedures: Procedures Procedure Code Date BLOOD TRANSFUSION SERVICE 12801 11/15/16 EGD BIOPSY SINGLE/MULTIPLE 67111 09/03/15 EXCISION OF SMALL INTESTINE, ENDO, DIAGN [id number] 09/03/15 TRANSFUSE NONAUT RED BLOOD CELLS IN PERIPH VEIN, [facility] [id number] 09/25/18 Assessment/Plan - Assessment Assessment: 58 YO FEMALE WITH ANEMIA HAD EGD AND COLO SIG FINDING WAS THE HIATAL HERNIA AND UZAIR ULCER 1.CONT PROTONIX 2.FOLLOW H/H 3.CONSIDER REPAIR OF HIATAL HERNIA
[2018-09-28] MEDS ORDERED: Probiotic Screen MC PRN (09:29)
[2018-09-28] MEDS: Albuterol Nebulizer 2.5mg/3mL HHN PRN (12:42)
--- NOTE | 2018-09-28 13:42 | Internal Medicine Prog Note ---
Internal Medicine Subjective - Subjective Service Date: 09/28/18 Patient is:: awake, verbal, interactive, in bed Per staff patient has:: no adverse event, no episodes of fall, poor appetite, tolerating meds Internal Medicine Objective - Results Result Diagrams: 09/28/18 05:10 09/28/18 05:10 Recent Labs: Laboratory Last Values WBC 11.5 Th/cmm (4.8-10.8) H 09/28/18 05:10 RBC 4.23 Mil/cmm (3.80-5.10) 09/28/18 05:10 Hgb 9.7 gm/dL (12-16) L 09/28/18 05:10 Hct 30.9 % (41.0-60) L 09/28/18 05:10 MCV 73.0 fl (81-100) L 09/28/18 05:10 MCH 23.0 pg (27.0-31.0) L 09/28/18 05:10 MCHC Differential 31.5 pg (28.0-36.0) 09/28/18 05:10 RDW 28.4 % (11.5-20.0) H 09/28/18 05:10 Plt Count 448 Th/cmm (150-400) H 09/28/18 05:10 MPV 7.5 fl 09/28/18 05:10 Add Manual Diff YES 09/28/18 05:10 Neutrophils % 73.4 % (40.0-80.0) 09/26/18 09:30 Band Neutrophils % 0 % (0-10) 09/28/18 05:10 Lymphocytes % 17.1 % (20.0-50.0) L 09/26/18 09:30 Monocytes % 7.5 % (2.0-10.0) 09/26/18 09:30 Eosinophils % 1.6 % (0.0-5.0) 09/26/18 09:30 Basophils % 0.4 % (0.0-2.0) 09/26/18 09:30 Neutrophils (Manual) 73 % (40-80) 09/28/18 05:10 Lymphocytes 18 % (20-50) L 09/28/18 05:10 Monocytes 9 % (2-10) 09/28/18 05:10 Eosinophils 0 % (0-5) 09/28/18 05:10 Basophils 0 % (0-3) 09/28/18 05:10 Platelet Estimate INCREASED PLATELETS (NORMAL) 09/28/18 05:10 Anisocytosis 2+ 09/28/18 05:10 Microcytosis 2+ 09/28/18 05:10 Rouleaux 1+ 09/28/18 05:10 PT 10.0 SECONDS (9.5-11.5) 09/27/18 04:30 INR 0.96 (0.5-1.4) 09/27/18 04:30 PTT (Actin FS) 21.5 SECONDS (26.0-38.0) L 09/25/18 18:50 Sodium 137 mEq/L (136-145) 09/28/18 05:10 Potassium 3.7 mEq/L (3.5-5.1) 09/28/18 05:10 Chloride 104 mEq/L (98-107) 09/28/18 05:10 Carbon Dioxide 29.1 mEq/L (21.0-31.0) 09/28/18 05:10 Anion Gap 7.6 (7.0-16.0) 09/28/18 05:10 BUN 5 mg/dL (7-25) L 09/28/18 05:10 Creatinine 0.5 mg/dL (0.6-1.2) L 09/28/18 05:10 Est GFR ( Amer) > 60.0 ml/min (>90) 09/28/18 05:10 Est GFR (Non-Af Amer) > 60.0 ml/min 09/28/18 05:10 BUN/Creatinine Ratio 10.0 09/28/18 05:10 Glucose 138 mg/dL (70-105) H 09/28/18 05:10 Whole Bld Lactic Acid 1.66 mmol/L (0.60-1.99) 09/25/18 18:50 Calcium 8.1 mg/dL (8.6-10.3) L 09/28/18 05:10 Magnesium 2.2 mg/dL (1.9-2.7) 09/28/18 05:10 Iron 16 ug/dL (27-159) L 09/26/18 09:30 TIBC 475 ug/dL (250-450) H 09/26/18 09:30 Iron Saturation 3 % (15-55) L 09/26/18 09:30 Unsaturated IBC 459 ug/dL (131-425) H 09/26/18 09:30 Ferritin 5 ng/mL (15-150) L 09/26/18 09:30 Total Bilirubin 0.4 mg/dL (0.3-1.0) 09/28/18 05:10 AST 20 U/L (13-39) 09/28/18 05:10 ALT 23 U/L (7-52) 09/28/18 05:10 Alkaline Phosphatase 83 U/L (34-104) 09/28/18 05:10 Creatine Kinase 46 U/L (30-223) 09/25/18 18:50 Troponin I 0.18 ng/mL (0.01-0.05) H* D 09/25/18 18:50 B-Natriuretic Peptide 116.0 pg/mL (5.0-100.0) H 09/28/18 05:10 Total Protein 5.5 gm/dL (6.0-8.3) L 09/28/18 05:10 Albumin 3.0 gm/dL (3.7-5.3) L 09/28/18 05:10 Globulin 2.5 gm/dL 09/28/18 05:10 Albumin/Globulin Ratio 1.2 (1.0-1.8) 09/28/18 05:10 Vitamin B12 433 pg/mL (232-1245) 09/26/18 09:30 Folic Acid 9.9 ng/mL (>3.0) 09/26/18 09:30 TSH 3.62 uIU/ml (0.34-5.60) 09/26/18 09:30 Urine Source MIDSTREAM 09/26/18 11:15 Urine Color YELLOW 09/26/18 11:15 Urine Clarity CLEAR (CLEAR) 09/26/18 11:15 Urine pH 6.5 (4.6 - 8.0) 09/26/18 11:15 Ur Specific [place] <= 1.005 (1.005-1.030) 09/26/18 11:15 Urine Protein NEGATIVE mg/dL (NEGATIVE) 09/26/18 11:15 Urine Glucose (UA) NEGATIVE mg/dL (NEGATIVE) 09/26/18 11:15 Urine Ketones NEGATIVE mg/dL (NEGATIVE) 09/26/18 11:15 Urine Blood NEGATIVE (NEGATIVE) 09/26/18 11:15 Urine Nitrate NEGATIVE (NEGATIVE) 09/26/18 11:15 Urine Bilirubin NEGATIVE (NEGATIVE) 09/26/18 11:15 Urine Urobilinogen 0.2 E.U./dL (0.2 - 1.0) 09/26/18 11:15 Ur Leukocyte Esterase NEGATIVE (NEGATIVE) 09/26/18 11:15 Rheumatoid Factor 84.1 IU/mL (0.0-13.9) H 09/25/18 21:18 Blood Type O POSITIVE 09/25/18 18:50 Antibody Screen NEGATIVE 09/25/18 18:50 Crossmatch See Detail 09/25/18 18:50 - Physical Exam Vitals and I&O: Vital Signs Temp 98.8 F 09/28/18 11:34 Pulse 106 09/28/18 12:56 Resp 48 09/28/18 12:56 BP 106/64 09/28/18 11:34 Pulse Ox 90 09/28/18 12:56 Intake & Output 09/27/18 09/28/18 09/28/18 18:59 06:59 18:59 Intake Total 1310 250 Output Total 2 Balance 1310 248 Weight (lbs) 143 lb 143 lb Intake: Intake, IV Amount 1050 50 Cefepime 1 gm In Dextrose 50 50 5% 50 ml @ 100 mls/hr IV Q12H [facility] Rx#:[id number] D5-0.45NS 1,000 ml @ 60 1000 mls/hr IV .[id number] [facility] Rx #:[id number] Oral 260 200 Output: Urine 2 Other: # Voids 3 2 # Bowel Movements 1 0 Stool Characteristics Liquid Weight Source Bedscale Bedscale Active Medications: Current Medications Acetaminophen (Tylenol) 650 mg PO Q4H PRN PRN Reason: Pain Or Fever above 101 Stop: 11/24/18 20:43 Last Admin: 09/26/18 16:19 Dose: 650 mg Al Hydrox/Mg Hydrox/Simethicone (Maalox) 30 ml PO Q4H PRN PRN Reason: gi upset Stop: 11/24/18 20:39 Albuterol Sulfate (Albuterol 2.5mg/3ml Neb Ud) 2.5 mg HHN Q2HRT PRN PRN Reason: Shortness of Breath or Wheeze Stop: 11/24/18 20:40 Last Admin: 09/28/18 12:42 Dose: 2.5 mg Artificial Tears (Artificial Tears Ophth Soln) 1 drop EACH EYE BID PRN PRN Reason: DRY EYES Stop: 11/25/18 09:08 Benztropine Mesylate (Cogentin) 0.5 mg PO BID [facility] Stop: 11/25/18 08:59 Last Admin: 09/28/18 10:05 Dose: 0.5 mg Bisacodyl (Dulcolax 10 Mg Supp) 10 mg RC DAILY PRN PRN Reason: Constipation Stop: 11/24/18 20:39 Docusate Sodium (Colace) 100 mg PO DAILY [facility] Stop: 11/25/18 08:59 Last Admin: 09/28/18 10:06 Dose: 100 mg Guaifenesin (Robitussin) 200 mg PO Q4HR PRN PRN Reason: Cough or Congestion Stop: 11/24/18 20:43 Dextrose/Sodium Chloride (D5-0.45ns) 1,000 mls @ 60 mls/hr IV .[id number] [facility] Stop: 11/25/18 12:44 Last Admin: 09/27/18 23:11 Dose: 60 mls/hr Cefepime HCl 1 gm/ Dextrose 50 mls @ 100 mls/hr IV Q12H [facility] Stop: 11/26/18 12:59 Last Infusion: 09/28/18 00:48 Dose: Infused Lactobacillus Rhamnosus (Culturelle 15b) 1 each PO DAILY [facility] Stop: 11/28/18 08:59 Magnesium Hydroxide (Milk Of Magnesia) 30 ml PO DAILY PRN PRN Reason: Constipation Stop: 11/24/18 20:39 Miscellaneous (Probiotic Screen) 1 ea MC PRN PRN PRN Reason: PROTOCOL Stop: 11/27/18 09:28 Mupirocin (Bactroban Oint) 1 appl NS BID [facility] Stop: 10/02/18 09:01 Last Admin: 09/28/18 12:18 Dose: 1 appl Nitroglycerin (Nitrostat) 0.4 mg SL Q5MIN PRN PRN Reason: Chest Pain Stop: 11/24/18 20:43 Ondansetron HCl (Zofran) 4 mg IV Q8H PRN PRN Reason: Nausea / Vomiting Stop: 11/24/18 20:43 Pantoprazole Sodium (Protonix) 40 mg IVP BID [facility] Stop: 11/24/18 21:59 Last Admin: 09/28/18 10:05 Dose: 40 mg Risperidone (Risperdal) 0.25 mg PO BID [facility]; Protocol Stop: 11/25/18 08:59 Last Admin: 09/28/18 10:05 Dose: 0.25 mg Zolpidem Tartrate (Ambien) 10 mg PO HS PRN PRN Reason: Insomnia Stop: 11/24/18 20:40 General: alert HEENT: NC/AT, PERRLA Neck: Supple Lungs: rales Cardiovascular: RRR, Normal S1, Normal S2, without murmur Abdomen: soft, globular, positive bowel sound Extremities: excoriation Neurological: no change, alert, muscle weakness, bedbound - Procedures Procedures: Procedures Procedure Code Date BLOOD TRANSFUSION SERVICE 65550 11/15/16 EGD BIOPSY SINGLE/MULTIPLE 81202 09/03/15 EXCISION OF SMALL INTESTINE, ENDO, DIAGN 3PD27RT 09/03/15 TRANSFUSE NONAUT RED BLOOD CELLS IN PERIPH VEIN, [facility] 26039E3 09/25/18 Internal Medicine Assmt/Plan - Assessment Assessment: ASSESSMENT: 1. Severe anemia, rule out gastrointestinal bleeding. 2. Thrombocytosis. 3. Hyperglycemia. 4. Elevated troponin, possibly secondary to severe anemia. 5. Low albumin. 6. History of stroke. 7. Psych disorder. 8. History of rheumatoid arthritis. leukocytosis - Plan Plan: PLAN: We will continue the patient on IV proton pump inhibitor. We will transfuse the patient. monitor h/h closely.
--- NOTE | 2018-09-28 14:01 | General Progress Note ---
Subjective - Review of Systems Service Date: 09/28/18 Subjective: orally fed full liquid Objective - Results Result Diagrams: 09/28/18 05:10 09/28/18 05:10 Recent Labs: Laboratory Last Values WBC 11.5 Th/cmm (4.8-10.8) H 09/28/18 05:10 RBC 4.23 Mil/cmm (3.80-5.10) 09/28/18 05:10 Hgb 9.7 gm/dL (12-16) L 09/28/18 05:10 Hct 30.9 % (41.0-60) L 09/28/18 05:10 MCV 73.0 fl (81-100) L 09/28/18 05:10 MCH 23.0 pg (27.0-31.0) L 09/28/18 05:10 MCHC Differential 31.5 pg (28.0-36.0) 09/28/18 05:10 RDW 28.4 % (11.5-20.0) H 09/28/18 05:10 Plt Count 448 Th/cmm (150-400) H 09/28/18 05:10 MPV 7.5 fl 09/28/18 05:10 Add Manual Diff YES 09/28/18 05:10 Neutrophils % 73.4 % (40.0-80.0) 09/26/18 09:30 Band Neutrophils % 0 % (0-10) 09/28/18 05:10 Lymphocytes % 17.1 % (20.0-50.0) L 09/26/18 09:30 Monocytes % 7.5 % (2.0-10.0) 09/26/18 09:30 Eosinophils % 1.6 % (0.0-5.0) 09/26/18 09:30 Basophils % 0.4 % (0.0-2.0) 09/26/18 09:30 Neutrophils (Manual) 73 % (40-80) 09/28/18 05:10 Lymphocytes 18 % (20-50) L 09/28/18 05:10 Monocytes 9 % (2-10) 09/28/18 05:10 Eosinophils 0 % (0-5) 09/28/18 05:10 Basophils 0 % (0-3) 09/28/18 05:10 Platelet Estimate INCREASED PLATELETS (NORMAL) 09/28/18 05:10 Anisocytosis 2+ 09/28/18 05:10 Microcytosis 2+ 09/28/18 05:10 Rouleaux 1+ 09/28/18 05:10 PT 10.0 SECONDS (9.5-11.5) 09/27/18 04:30 INR 0.96 (0.5-1.4) 09/27/18 04:30 PTT (Actin FS) 21.5 SECONDS (26.0-38.0) L 09/25/18 18:50 Sodium 137 mEq/L (136-145) 09/28/18 05:10 Potassium 3.7 mEq/L (3.5-5.1) 09/28/18 05:10 Chloride 104 mEq/L (98-107) 09/28/18 05:10 Carbon Dioxide 29.1 mEq/L (21.0-31.0) 09/28/18 05:10 Anion Gap 7.6 (7.0-16.0) 09/28/18 05:10 BUN 5 mg/dL (7-25) L 09/28/18 05:10 Creatinine 0.5 mg/dL (0.6-1.2) L 09/28/18 05:10 Est GFR ( Amer) > 60.0 ml/min (>90) 09/28/18 05:10 Est GFR (Non-Af Amer) > 60.0 ml/min 09/28/18 05:10 BUN/Creatinine Ratio 10.0 09/28/18 05:10 Glucose 138 mg/dL (70-105) H 09/28/18 05:10 Whole Bld Lactic Acid 1.66 mmol/L (0.60-1.99) 09/25/18 18:50 Calcium 8.1 mg/dL (8.6-10.3) L 09/28/18 05:10 Magnesium 2.2 mg/dL (1.9-2.7) 09/28/18 05:10 Iron 16 ug/dL (27-159) L 09/26/18 09:30 TIBC 475 ug/dL (250-450) H 09/26/18 09:30 Iron Saturation 3 % (15-55) L 09/26/18 09:30 Unsaturated IBC 459 ug/dL (131-425) H 09/26/18 09:30 Ferritin 5 ng/mL (15-150) L 09/26/18 09:30 Total Bilirubin 0.4 mg/dL (0.3-1.0) 09/28/18 05:10 AST 20 U/L (13-39) 09/28/18 05:10 ALT 23 U/L (7-52) 09/28/18 05:10 Alkaline Phosphatase 83 U/L (34-104) 09/28/18 05:10 Creatine Kinase 46 U/L (30-223) 09/25/18 18:50 Troponin I 0.18 ng/mL (0.01-0.05) H* D 09/25/18 18:50 B-Natriuretic Peptide 116.0 pg/mL (5.0-100.0) H 09/28/18 05:10 Total Protein 5.5 gm/dL (6.0-8.3) L 09/28/18 05:10 Albumin 3.0 gm/dL (3.7-5.3) L 09/28/18 05:10 Globulin 2.5 gm/dL 09/28/18 05:10 Albumin/Globulin Ratio 1.2 (1.0-1.8) 09/28/18 05:10 Vitamin B12 433 pg/mL (232-1245) 09/26/18 09:30 Folic Acid 9.9 ng/mL (>3.0) 09/26/18 09:30 TSH 3.62 uIU/ml (0.34-5.60) 09/26/18 09:30 Urine Source MIDSTREAM 09/26/18 11:15 Urine Color YELLOW 09/26/18 11:15 Urine Clarity CLEAR (CLEAR) 09/26/18 11:15 Urine pH 6.5 (4.6 - 8.0) 09/26/18 11:15 Ur Specific [place] <= 1.005 (1.005-1.030) 09/26/18 11:15 Urine Protein NEGATIVE mg/dL (NEGATIVE) 09/26/18 11:15 Urine Glucose (UA) NEGATIVE mg/dL (NEGATIVE) 09/26/18 11:15 Urine Ketones NEGATIVE mg/dL (NEGATIVE) 09/26/18 11:15 Urine Blood NEGATIVE (NEGATIVE) 09/26/18 11:15 Urine Nitrate NEGATIVE (NEGATIVE) 09/26/18 11:15 Urine Bilirubin NEGATIVE (NEGATIVE) 09/26/18 11:15 Urine Urobilinogen 0.2 E.U./dL (0.2 - 1.0) 09/26/18 11:15 Ur Leukocyte Esterase NEGATIVE (NEGATIVE) 09/26/18 11:15 Rheumatoid Factor 84.1 IU/mL (0.0-13.9) H 09/25/18 21:18 Blood Type O POSITIVE 09/25/18 18:50 Antibody Screen NEGATIVE 09/25/18 18:50 Crossmatch See Detail 09/25/18 18:50 - Physical Exam Vitals and I&O: Vital Signs Temp 98.8 F 09/28/18 11:34 Pulse 106 09/28/18 12:56 Resp 48 09/28/18 12:56 BP 106/64 09/28/18 11:34 Pulse Ox 90 09/28/18 12:56 Intake & Output 09/27/18 09/28/18 09/28/18 18:59 06:59 18:59 Intake Total 1310 250 Output Total 2 Balance 1310 248 Weight (lbs) 64.864 kg 64.864 kg Intake: Intake, IV Amount 1050 50 Cefepime 1 gm In Dextrose 50 50 5% 50 ml @ 100 mls/hr IV Q12H [facility] Rx#:[id number] D5-0.45NS 1,000 ml @ 60 1000 mls/hr IV .[id number] [facility] Rx #:[id number] Oral 260 200 Output: Urine 2 Other: # Voids 3 2 # Bowel Movements 1 0 Stool Characteristics Liquid Weight Source Bedscale Bedscale Active Medications: Current Medications Acetaminophen (Tylenol) 650 mg PO Q4H PRN PRN Reason: Pain Or Fever above 101 Stop: 11/24/18 20:43 Last Admin: 09/26/18 16:19 Dose: 650 mg Al Hydrox/Mg Hydrox/Simethicone (Maalox) 30 ml PO Q4H PRN PRN Reason: gi upset Stop: 11/24/18 20:39 Albuterol Sulfate (Albuterol 2.5mg/3ml Neb Ud) 2.5 mg HHN Q2HRT PRN PRN Reason: Shortness of Breath or Wheeze Stop: 11/24/18 20:40 Last Admin: 09/28/18 12:42 Dose: 2.5 mg Artificial Tears (Artificial Tears Ophth Soln) 1 drop EACH EYE BID PRN PRN Reason: DRY EYES Stop: 11/25/18 09:08 Benztropine Mesylate (Cogentin) 0.5 mg PO BID [facility] Stop: 11/25/18 08:59 Last Admin: 09/28/18 10:05 Dose: 0.5 mg Bisacodyl (Dulcolax 10 Mg Supp) 10 mg RC DAILY PRN PRN Reason: Constipation Stop: 11/24/18 20:39 Docusate Sodium (Colace) 100 mg PO DAILY [facility] Stop: 11/25/18 08:59 Last Admin: 09/28/18 10:06 Dose: 100 mg Guaifenesin (Robitussin) 200 mg PO Q4HR PRN PRN Reason: Cough or Congestion Stop: 11/24/18 20:43 Dextrose/Sodium Chloride (D5-0.45ns) 1,000 mls @ 60 mls/hr IV .[id number] [facility] Stop: 11/25/18 12:44 Last Admin: 09/27/18 23:11 Dose: 60 mls/hr Cefepime HCl 1 gm/ Dextrose 50 mls @ 100 mls/hr IV Q12H [facility] Stop: 11/26/18 12:59 Last Admin: 09/28/18 13:48 Dose: 100 mls/hr Ferric Sodium Gluconate Complex 125 mg/ Sodium Chloride 110 mls @ 100 mls/hr IV Q24HR [facility] Stop: 11/27/18 13:59 Lactobacillus Rhamnosus (Culturelle 15b) 1 each PO DAILY [facility] Stop: 11/28/18 08:59 Magnesium Hydroxide (Milk Of Magnesia) 30 ml PO DAILY PRN PRN Reason: Constipation Stop: 11/24/18 20:39 Miscellaneous (Probiotic Screen) 1 ea MC PRN PRN PRN Reason: PROTOCOL Stop: 11/27/18 09:28 Mupirocin (Bactroban Oint) 1 appl NS BID [facility] Stop: 10/02/18 09:01 Last Admin: 09/28/18 12:18 Dose: 1 appl Nitroglycerin (Nitrostat) 0.4 mg SL Q5MIN PRN PRN Reason: Chest Pain Stop: 11/24/18 20:43 Ondansetron HCl (Zofran) 4 mg IV Q8H PRN PRN Reason: Nausea / Vomiting Stop: 11/24/18 20:43 Pantoprazole Sodium (Protonix) 40 mg IVP BID [facility] Stop: 11/24/18 21:59 Last Admin: 09/28/18 10:05 Dose: 40 mg Risperidone (Risperdal) 0.25 mg PO BID [facility]; Protocol Stop: 11/25/18 08:59 Last Admin: 09/28/18 10:05 Dose: 0.25 mg Zolpidem Tartrate (Ambien) 10 mg PO HS PRN PRN Reason: Insomnia Stop: 11/24/18 20:40 - Procedures Procedures: Procedures Procedure Code Date BLOOD TRANSFUSION SERVICE 99480 11/15/16 EGD BIOPSY SINGLE/MULTIPLE 90377 09/03/15 EXCISION OF SMALL INTESTINE, ENDO, DIAGN [id number] 09/03/15 TRANSFUSE NONAUT RED BLOOD CELLS IN PERIPH VEIN, PERC 35563P8 09/25/18 Assessment/Plan - Assessment Assessment: * Iron deficiency anemia * GI bleeding from gastric ulcer, diverticulosis, hemorrhoids * Normal B12, folate Start iv ferrlecit hgb better post tx
[2018-09-28] MEDS: Sodium Ferric Gluconate 125 MG in Sodium Chloride 0.9% 100 ML IV SCH (14:37)
[2018-09-28] MEDS: D5-0.45NS 1,000 ML IV SCH (14:38)
[2018-09-29 05:54] LABS: HEMATOCRIT 31.9 % (41.0-60); MEAN CORPUSCULAR HEMOGLOBIN 22.8 pg (27.0-31.0); MEAN CORPUSCULAR HGB CONC 31.2 pg (28.0-36.0); PLATELET COUNT 433 Th/cmm (150-400); RED BLOOD COUNT 4.37 Mil/cmm (3.80-5.10); WHITE BLOOD COUNT 10.7 Th/cmm (4.8-10.8)
[2018-09-29 06:10] LABS: ANION GAP 9.7 (7.0-16.0); BUN - UREA NITROGEN 4 mg/dL (7-25); CALCIUM SERUM 8.2 mg/dL (8.6-10.3); CARBON DIOXIDE 30.1 mEq/L (21.0-31.0); CHLORIDE 103 mEq/L (98-107); CREATININE - SERUM 0.4 mg/dL (0.6-1.2); GFR AFRICAN-AMERICAN > 60.0 ml/min (>90); GFR NON AFRICAN-AMERICAN > 60.0 ml/min; GLUCOSE 155 mg/dL (70-105); POTASSIUM SERUM 3.8 mEq/L (3.5-5.1); SODIUM SERUM 139 mEq/L (136-145)
[2018-09-29] MEDS: D5-0.45NS 1,000 ML IV SCH (07:16)
[2018-09-29 07:45] LABS: BAND NEUTROPHILE 0 % (0-10); BASOPHIL 9 % (0-3); EOSINOPHIL 1 % (0-5); LYMPHOCYTE 14 % (20-50); MONOCYTE 13 % (2-10); NEUTROPHILS 72 % (40-80); PLATELET ESTIMATE INCREASED PLATELETS (NORMAL)
[2018-09-29 07:47] LABS: ANISOCYTOSIS 2+
--- NOTE | 2018-09-29 07:48 | GI Progress Note ---
Subjective - Review of Systems Subjective: NO EVENTS GI OBJECTIVE - Results Result Diagrams: 09/29/18 05:40 09/29/18 05:40 Recent Labs: Laboratory Last Values WBC 10.7 Th/cmm (4.8-10.8) 09/29/18 05:40 RBC 4.37 Mil/cmm (3.80-5.10) 09/29/18 05:40 Hgb 10.0 gm/dL (12-16) L 09/29/18 05:40 Hct 31.9 % (41.0-60) L 09/29/18 05:40 MCV 73.0 fl (81-100) L 09/29/18 05:40 MCH 22.8 pg (27.0-31.0) L 09/29/18 05:40 MCHC Differential 31.2 pg (28.0-36.0) 09/29/18 05:40 RDW 28.0 % (11.5-20.0) H 09/29/18 05:40 Plt Count 433 Th/cmm (150-400) H 09/29/18 05:40 MPV 7.7 fl 09/29/18 05:40 Add Manual Diff YES 09/29/18 05:40 Neutrophils % 73.4 % (40.0-80.0) 09/26/18 09:30 Band Neutrophils % 0 % (0-10) 09/28/18 05:10 Lymphocytes % 17.1 % (20.0-50.0) L 09/26/18 09:30 Monocytes % 7.5 % (2.0-10.0) 09/26/18 09:30 Eosinophils % 1.6 % (0.0-5.0) 09/26/18 09:30 Basophils % 0.4 % (0.0-2.0) 09/26/18 09:30 Neutrophils (Manual) 73 % (40-80) 09/28/18 05:10 Lymphocytes 18 % (20-50) L 09/28/18 05:10 Monocytes 9 % (2-10) 09/28/18 05:10 Eosinophils 0 % (0-5) 09/28/18 05:10 Basophils 0 % (0-3) 09/28/18 05:10 Platelet Estimate INCREASED PLATELETS (NORMAL) 09/28/18 05:10 Anisocytosis 2+ 09/28/18 05:10 Microcytosis 2+ 09/28/18 05:10 Rouleaux 1+ 09/28/18 05:10 PT 10.0 SECONDS (9.5-11.5) 09/27/18 04:30 INR 0.96 (0.5-1.4) 09/27/18 04:30 PTT (Actin FS) 21.5 SECONDS (26.0-38.0) L 09/25/18 18:50 Sodium 139 mEq/L (136-145) 09/29/18 05:40 Potassium 3.8 mEq/L (3.5-5.1) 09/29/18 05:40 Chloride 103 mEq/L (98-107) 09/29/18 05:40 Carbon Dioxide 30.1 mEq/L (21.0-31.0) 09/29/18 05:40 Anion Gap 9.7 (7.0-16.0) 09/29/18 05:40 BUN 4 mg/dL (7-25) L 09/29/18 05:40 Creatinine 0.4 mg/dL (0.6-1.2) L 09/29/18 05:40 Est GFR ( Amer) > 60.0 ml/min (>90) 09/29/18 05:40 Est GFR (Non-Af Amer) > 60.0 ml/min 09/29/18 05:40 BUN/Creatinine Ratio 10.0 09/29/18 05:40 Glucose 155 mg/dL (70-105) H 09/29/18 05:40 Whole Bld Lactic Acid 1.66 mmol/L (0.60-1.99) 09/25/18 18:50 Calcium 8.2 mg/dL (8.6-10.3) L 09/29/18 05:40 Magnesium 2.2 mg/dL (1.9-2.7) 09/28/18 05:10 Iron 16 ug/dL (27-159) L 09/26/18 09:30 TIBC 475 ug/dL (250-450) H 09/26/18 09:30 Iron Saturation 3 % (15-55) L 09/26/18 09:30 Unsaturated IBC 459 ug/dL (131-425) H 09/26/18 09:30 Ferritin 5 ng/mL (15-150) L 09/26/18 09:30 Total Bilirubin 0.4 mg/dL (0.3-1.0) 09/28/18 05:10 AST 20 U/L (13-39) 09/28/18 05:10 ALT 23 U/L (7-52) 09/28/18 05:10 Alkaline Phosphatase 83 U/L (34-104) 09/28/18 05:10 Creatine Kinase 46 U/L (30-223) 09/25/18 18:50 Troponin I 0.18 ng/mL (0.01-0.05) H* D 09/25/18 18:50 B-Natriuretic Peptide 116.0 pg/mL (5.0-100.0) H 09/28/18 05:10 Total Protein 5.5 gm/dL (6.0-8.3) L 09/28/18 05:10 Albumin 3.0 gm/dL (3.7-5.3) L 09/28/18 05:10 Globulin 2.5 gm/dL 09/28/18 05:10 Albumin/Globulin Ratio 1.2 (1.0-1.8) 09/28/18 05:10 Vitamin B12 433 pg/mL (232-1245) 09/26/18 09:30 Folic Acid 9.9 ng/mL (>3.0) 09/26/18 09:30 TSH 3.62 uIU/ml (0.34-5.60) 09/26/18 09:30 Urine Source MIDSTREAM 09/26/18 11:15 Urine Color YELLOW 09/26/18 11:15 Urine Clarity CLEAR (CLEAR) 09/26/18 11:15 Urine pH 6.5 (4.6 - 8.0) 09/26/18 11:15 Ur Specific [place] <= 1.005 (1.005-1.030) 09/26/18 11:15 Urine Protein NEGATIVE mg/dL (NEGATIVE) 09/26/18 11:15 Urine Glucose (UA) NEGATIVE mg/dL (NEGATIVE) 09/26/18 11:15 Urine Ketones NEGATIVE mg/dL (NEGATIVE) 09/26/18 11:15 Urine Blood NEGATIVE (NEGATIVE) 09/26/18 11:15 Urine Nitrate NEGATIVE (NEGATIVE) 09/26/18 11:15 Urine Bilirubin NEGATIVE (NEGATIVE) 09/26/18 11:15 Urine Urobilinogen 0.2 E.U./dL (0.2 - 1.0) 09/26/18 11:15 Ur Leukocyte Esterase NEGATIVE (NEGATIVE) 09/26/18 11:15 Rheumatoid Factor 84.1 IU/mL (0.0-13.9) H 09/25/18 21:18 Blood Type O POSITIVE 09/25/18 18:50 Antibody Screen NEGATIVE 09/25/18 18:50 Crossmatch See Detail 09/25/18 18:50 - Physical Exam Vitals and I&O: Vital Signs Temp 99.0 F 09/29/18 04:27 Pulse 89 09/29/18 06:53 Resp 32 09/29/18 06:53 BP 122/76 09/29/18 04:27 Pulse Ox 95 09/29/18 06:53 Intake & Output 09/28/18 09/29/18 09/29/18 18:59 06:59 18:59 Intake Total 1177 110 998 Balance 1177 110 998 Weight (lbs) 64.864 kg 64.864 kg Intake: Intake, IV Amount 977 50 998 Cefepime 1 gm In Dextrose 50 50 5% 50 ml @ 100 mls/hr IV Q12H [facility] Rx#:[id number] D5-0.45NS 1,000 ml @ 60 927 998 mls/hr IV .[id number] [facility] Rx #:[id number] Oral 200 60 Other: # Voids 1 3 # Bowel Movements 0 2 Weight Source Bedscale Bedscale Active Medications: Current Medications Acetaminophen (Tylenol) 650 mg PO Q4H PRN PRN Reason: Pain Or Fever above 101 Stop: 11/24/18 20:43 Last Admin: 09/26/18 16:19 Dose: 650 mg Al Hydrox/Mg Hydrox/Simethicone (Maalox) 30 ml PO Q4H PRN PRN Reason: gi upset Stop: 11/24/18 20:39 Albuterol Sulfate (Albuterol 2.5mg/3ml Neb Ud) 2.5 mg HHN Q2HRT PRN PRN Reason: Shortness of Breath or Wheeze Stop: 11/24/18 20:40 Last Admin: 09/28/18 12:42 Dose: 2.5 mg Artificial Tears (Artificial Tears Ophth Soln) 1 drop EACH EYE BID PRN PRN Reason: DRY EYES Stop: 11/25/18 09:08 Benztropine Mesylate (Cogentin) 0.5 mg PO BID [facility] Stop: 11/25/18 08:59 Last Admin: 09/28/18 17:18 Dose: 0.5 mg Bisacodyl (Dulcolax 10 Mg Supp) 10 mg RC DAILY PRN PRN Reason: Constipation Stop: 11/24/18 20:39 Docusate Sodium (Colace) 100 mg PO DAILY [facility] Stop: 11/25/18 08:59 Last Admin: 09/28/18 10:06 Dose: 100 mg Guaifenesin (Robitussin) 200 mg PO Q4HR PRN PRN Reason: Cough or Congestion Stop: 11/24/18 20:43 Dextrose/Sodium Chloride (D5-0.45ns) 1,000 mls @ 60 mls/hr IV .[id number] [facility] Stop: 11/25/18 12:44 Last Admin: 09/29/18 07:16 Dose: 60 mls/hr Cefepime HCl 1 gm/ Dextrose 50 mls @ 100 mls/hr IV Q12H [facility] Stop: 11/26/18 12:59 Last Infusion: 09/29/18 01:37 Dose: Infused Ferric Sodium Gluconate Complex 125 mg/ Sodium Chloride 110 mls @ 100 mls/hr IV Q24HR [facility] Stop: 10/05/18 16:05 Last Admin: 09/28/18 14:37 Dose: 100 mls/hr Lactobacillus Rhamnosus (Culturelle 15b) 1 each PO DAILY [facility] Stop: 11/28/18 08:59 Magnesium Hydroxide (Milk Of Magnesia) 30 ml PO DAILY PRN PRN Reason: Constipation Stop: 11/24/18 20:39 Miscellaneous (Probiotic Screen) 1 ea MC PRN PRN PRN Reason: PROTOCOL Stop: 11/27/18 09:28 Mupirocin (Bactroban Oint) 1 appl NS BID [facility] Stop: 10/02/18 09:01 Last Admin: 09/28/18 17:18 Dose: 1 appl Nitroglycerin (Nitrostat) 0.4 mg SL Q5MIN PRN PRN Reason: Chest Pain Stop: 11/24/18 20:43 Ondansetron HCl (Zofran) 4 mg IV Q8H PRN PRN Reason: Nausea / Vomiting Stop: 11/24/18 20:43 Pantoprazole Sodium (Protonix) 40 mg IVP BID [facility] Stop: 11/24/18 21:59 Last Admin: 09/28/18 17:18 Dose: 40 mg Risperidone (Risperdal) 0.25 mg PO BID [facility]; Protocol Stop: 11/25/18 08:59 Last Admin: 09/28/18 17:18 Dose: 0.25 mg Zolpidem Tartrate (Ambien) 10 mg PO HS PRN PRN Reason: Insomnia Stop: 11/24/18 20:40 - Procedures Procedures: Procedures Procedure Code Date BLOOD TRANSFUSION SERVICE 02043 11/15/16 EGD BIOPSY SINGLE/MULTIPLE 34362 09/03/15 EXCISION OF SMALL INTESTINE, ENDO, DIAGN [id number] 09/03/15 TRANSFUSE NONAUT RED BLOOD CELLS IN PERIPH VEIN, PERC 07248F1 09/25/18 Assessment/Plan - Assessment Assessment: 58 YO FEMALE WITH ANEMIA HAD EGD AND COLO SIG FINDING WAS THE HIATAL HERNIA AND UZAIR ULCER 1.CONT PROTONIX AND IRON 2.FOLLOW H/H 3.CONSIDER REPAIR OF HIATAL HERNIA
[2018-09-29 07:51] LABS: OVALOCYTES 1+
[2018-09-29] MEDS: Lactobacillus Rhamnosus GG 15 Billion CFU CAP.SPRINK PO SCH (08:37)
[2018-09-29] MEDS: Sodium Ferric Gluconate 125 MG in Sodium Chloride 0.9% 100 ML IV SCH (15:36)
--- NOTE | 2018-09-29 16:08 | Internal Medicine Prog Note ---
Internal Medicine Subjective - Subjective Service Date: 09/29/18 Patient is:: awake, verbal, interactive, in bed Per staff patient has:: no adverse event, no episodes of fall, poor appetite, tolerating meds Internal Medicine Objective - Results Result Diagrams: 09/29/18 05:40 09/29/18 05:40 Recent Labs: Laboratory Last Values WBC 10.7 Th/cmm (4.8-10.8) 09/29/18 05:40 RBC 4.37 Mil/cmm (3.80-5.10) 09/29/18 05:40 Hgb 10.0 gm/dL (12-16) L 09/29/18 05:40 Hct 31.9 % (41.0-60) L 09/29/18 05:40 MCV 73.0 fl (81-100) L 09/29/18 05:40 MCH 22.8 pg (27.0-31.0) L 09/29/18 05:40 MCHC Differential 31.2 pg (28.0-36.0) 09/29/18 05:40 RDW 28.0 % (11.5-20.0) H 09/29/18 05:40 Plt Count 433 Th/cmm (150-400) H 09/29/18 05:40 MPV 7.7 fl 09/29/18 05:40 Add Manual Diff YES 09/29/18 05:40 Neutrophils % 73.4 % (40.0-80.0) 09/26/18 09:30 Band Neutrophils % 0 % (0-10) 09/29/18 05:40 Lymphocytes % 17.1 % (20.0-50.0) L 09/26/18 09:30 Monocytes % 7.5 % (2.0-10.0) 09/26/18 09:30 Eosinophils % 1.6 % (0.0-5.0) 09/26/18 09:30 Basophils % 0.4 % (0.0-2.0) 09/26/18 09:30 Neutrophils (Manual) 72 % (40-80) 09/29/18 05:40 Lymphocytes 14 % (20-50) L 09/29/18 05:40 Monocytes 13 % (2-10) H 09/29/18 05:40 Eosinophils 1 % (0-5) 09/29/18 05:40 Basophils 9 % (0-3) H 09/29/18 05:40 Platelet Estimate INCREASED PLATELETS (NORMAL) 09/29/18 05:40 Anisocytosis 2+ 09/29/18 05:40 Microcytosis 2+ 09/29/18 05:40 Ovalocytes 1+ 09/29/18 05:40 Rouleaux 1+ 09/28/18 05:10 PT 10.0 SECONDS (9.5-11.5) 09/27/18 04:30 INR 0.96 (0.5-1.4) 09/27/18 04:30 PTT (Actin FS) 21.5 SECONDS (26.0-38.0) L 09/25/18 18:50 Sodium 139 mEq/L (136-145) 09/29/18 05:40 Potassium 3.8 mEq/L (3.5-5.1) 09/29/18 05:40 Chloride 103 mEq/L (98-107) 09/29/18 05:40 Carbon Dioxide 30.1 mEq/L (21.0-31.0) 09/29/18 05:40 Anion Gap 9.7 (7.0-16.0) 09/29/18 05:40 BUN 4 mg/dL (7-25) L 09/29/18 05:40 Creatinine 0.4 mg/dL (0.6-1.2) L 09/29/18 05:40 Est GFR ( Amer) > 60.0 ml/min (>90) 09/29/18 05:40 Est GFR (Non-Af Amer) > 60.0 ml/min 09/29/18 05:40 BUN/Creatinine Ratio 10.0 09/29/18 05:40 Glucose 155 mg/dL (70-105) H 09/29/18 05:40 Whole Bld Lactic Acid 1.66 mmol/L (0.60-1.99) 09/25/18 18:50 Calcium 8.2 mg/dL (8.6-10.3) L 09/29/18 05:40 Magnesium 2.2 mg/dL (1.9-2.7) 09/28/18 05:10 Iron 16 ug/dL (27-159) L 09/26/18 09:30 TIBC 475 ug/dL (250-450) H 09/26/18 09:30 Iron Saturation 3 % (15-55) L 09/26/18 09:30 Unsaturated IBC 459 ug/dL (131-425) H 09/26/18 09:30 Ferritin 5 ng/mL (15-150) L 09/26/18 09:30 Total Bilirubin 0.4 mg/dL (0.3-1.0) 09/28/18 05:10 AST 20 U/L (13-39) 09/28/18 05:10 ALT 23 U/L (7-52) 09/28/18 05:10 Alkaline Phosphatase 83 U/L (34-104) 09/28/18 05:10 Creatine Kinase 46 U/L (30-223) 09/25/18 18:50 Troponin I 0.18 ng/mL (0.01-0.05) H* D 09/25/18 18:50 B-Natriuretic Peptide 116.0 pg/mL (5.0-100.0) H 09/28/18 05:10 Total Protein 5.5 gm/dL (6.0-8.3) L 09/28/18 05:10 Albumin 3.0 gm/dL (3.7-5.3) L 09/28/18 05:10 Globulin 2.5 gm/dL 09/28/18 05:10 Albumin/Globulin Ratio 1.2 (1.0-1.8) 09/28/18 05:10 Vitamin B12 433 pg/mL (232-1245) 09/26/18 09:30 Folic Acid 9.9 ng/mL (>3.0) 09/26/18 09:30 TSH 3.62 uIU/ml (0.34-5.60) 09/26/18 09:30 Urine Source MIDSTREAM 09/26/18 11:15 Urine Color YELLOW 09/26/18 11:15 Urine Clarity CLEAR (CLEAR) 09/26/18 11:15 Urine pH 6.5 (4.6 - 8.0) 09/26/18 11:15 Ur Specific [place] <= 1.005 (1.005-1.030) 09/26/18 11:15 Urine Protein NEGATIVE mg/dL (NEGATIVE) 09/26/18 11:15 Urine Glucose (UA) NEGATIVE mg/dL (NEGATIVE) 09/26/18 11:15 Urine Ketones NEGATIVE mg/dL (NEGATIVE) 09/26/18 11:15 Urine Blood NEGATIVE (NEGATIVE) 09/26/18 11:15 Urine Nitrate NEGATIVE (NEGATIVE) 09/26/18 11:15 Urine Bilirubin NEGATIVE (NEGATIVE) 09/26/18 11:15 Urine Urobilinogen 0.2 E.U./dL (0.2 - 1.0) 09/26/18 11:15 Ur Leukocyte Esterase NEGATIVE (NEGATIVE) 09/26/18 11:15 Rheumatoid Factor 84.1 IU/mL (0.0-13.9) H 09/25/18 21:18 Blood Type O POSITIVE 09/25/18 18:50 Antibody Screen NEGATIVE 09/25/18 18:50 Crossmatch See Detail 09/25/18 18:50 - Physical Exam Vitals and I&O: Vital Signs Temp 98.7 F 09/29/18 15:27 Pulse 93 09/29/18 15:27 Resp 18 09/29/18 15:27 BP 129/90 09/29/18 15:27 Pulse Ox 97 09/29/18 15:27 Intake & Output 09/28/18 09/29/18 09/29/18 18:59 06:59 18:59 Intake Total 1287 110 998 Balance 1287 110 998 Weight (lbs) 143 lb 143 lb Intake: Intake, IV Amount 1087 50 998 Cefepime 1 gm In Dextrose 50 50 5% 50 ml @ 100 mls/hr IV Q12H [facility] Rx#:[id number] D5-0.45NS 1,000 ml @ 60 927 998 mls/hr IV .[id number] [facility] Rx #:[id number] Sodium Ferric Gluconate 110 125 mg In Sodium Chloride 0.9% 100 ml @ 100 mls/hr IV Q24HR [facility] Rx#: [id number] Oral 200 60 Other: # Voids 1 3 # Bowel Movements 0 2 Weight Source Bedscale Bedscale Active Medications: Current Medications Acetaminophen (Tylenol) 650 mg PO Q4H PRN PRN Reason: Pain Or Fever above 101 Stop: 11/24/18 20:43 Last Admin: 09/26/18 16:19 Dose: 650 mg Al Hydrox/Mg Hydrox/Simethicone (Maalox) 30 ml PO Q4H PRN PRN Reason: gi upset Stop: 11/24/18 20:39 Albuterol Sulfate (Albuterol 2.5mg/3ml Neb Ud) 2.5 mg HHN Q2HRT PRN PRN Reason: Shortness of Breath or Wheeze Stop: 11/24/18 20:40 Last Admin: 09/28/18 12:42 Dose: 2.5 mg Artificial Tears (Artificial Tears Ophth Soln) 1 drop EACH EYE BID PRN PRN Reason: DRY EYES Stop: 11/25/18 09:08 Benztropine Mesylate (Cogentin) 0.5 mg PO BID [facility] Stop: 11/25/18 08:59 Last Admin: 09/29/18 08:37 Dose: 0.5 mg Bisacodyl (Dulcolax 10 Mg Supp) 10 mg RC DAILY PRN PRN Reason: Constipation Stop: 11/24/18 20:39 Docusate Sodium (Colace) 100 mg PO DAILY [facility] Stop: 11/25/18 08:59 Last Admin: 09/29/18 08:37 Dose: 100 mg Guaifenesin (Robitussin) 200 mg PO Q4HR PRN PRN Reason: Cough or Congestion Stop: 11/24/18 20:43 Dextrose/Sodium Chloride (D5-0.45ns) 1,000 mls @ 60 mls/hr IV .[id number] [facility] Stop: 11/25/18 12:44 Last Admin: 09/29/18 07:16 Dose: 60 mls/hr Cefepime HCl 1 gm/ Dextrose 50 mls @ 100 mls/hr IV Q12H [facility] Stop: 11/26/18 12:59 Last Admin: 09/29/18 12:54 Dose: 100 mls/hr Ferric Sodium Gluconate Complex 125 mg/ Sodium Chloride 110 mls @ 100 mls/hr IV Q24HR [facility] Stop: 10/05/18 16:05 Last Admin: 09/29/18 15:36 Dose: 100 mls/hr Lactobacillus Rhamnosus (Culturelle 15b) 1 each PO DAILY [facility] Stop: 11/28/18 08:59 Last Admin: 09/29/18 08:37 Dose: 1 each Magnesium Hydroxide (Milk Of Magnesia) 30 ml PO DAILY PRN PRN Reason: Constipation Stop: 11/24/18 20:39 Miscellaneous (Probiotic Screen) 1 ea MC PRN PRN PRN Reason: PROTOCOL Stop: 11/27/18 09:28 Mupirocin (Bactroban Oint) 1 appl NS BID [facility] Stop: 10/02/18 09:01 Last Admin: 09/29/18 08:38 Dose: 1 appl Nitroglycerin (Nitrostat) 0.4 mg SL Q5MIN PRN PRN Reason: Chest Pain Stop: 11/24/18 20:43 Ondansetron HCl (Zofran) 4 mg IV Q8H PRN PRN Reason: Nausea / Vomiting Stop: 11/24/18 20:43 Pantoprazole Sodium (Protonix) 40 mg IVP BID [facility] Stop: 11/24/18 21:59 Last Admin: 09/29/18 08:37 Dose: 40 mg Risperidone (Risperdal) 0.25 mg PO BID [facility]; Protocol Stop: 11/25/18 08:59 Last Admin: 09/29/18 08:37 Dose: 0.25 mg Zolpidem Tartrate (Ambien) 10 mg PO HS PRN PRN Reason: Insomnia Stop: 11/24/18 20:40 General: alert HEENT: NC/AT, PERRLA Neck: Supple Lungs: rales Cardiovascular: RRR, Normal S1, Normal S2, without murmur Abdomen: soft, globular, positive bowel sound Extremities: excoriation Neurological: no change, alert, muscle weakness, bedbound - Procedures Procedures: Procedures Procedure Code Date BLOOD TRANSFUSION SERVICE 64269 11/15/16 EGD BIOPSY SINGLE/MULTIPLE 92096 09/03/15 EXCISION OF SMALL INTESTINE, ENDO, DIAGN [id number] 09/03/15 TRANSFUSE NONAUT RED BLOOD CELLS IN PERIPH VEIN, PERC 55392L8 09/25/18 Internal Medicine Assmt/Plan - Assessment Assessment: ASSESSMENT: 1. Severe anemia, rule out gastrointestinal bleeding. 2. Thrombocytosis. 3. Hyperglycemia. 4. Elevated troponin, possibly secondary to severe anemia. 5. Low albumin. 6. History of stroke. 7. Psych disorder. 8. History of rheumatoid arthritis. leukocytosis - Plan Plan: monitor h/h closely am labs ivf for hydration continue current plan of care
[2018-09-30] MEDS: D5-0.45NS 1,000 ML IV SCH (00:15)
[2018-09-30 05:01] LABS: BUN - UREA NITROGEN 3 mg/dL (7-25); CARBON DIOXIDE 31.3 mEq/L (21.0-31.0); CHLORIDE 104 mEq/L (98-107); CREATININE - SERUM 0.4 mg/dL (0.6-1.2); GFR AFRICAN-AMERICAN > 60.0 ml/min (>90); GFR NON AFRICAN-AMERICAN > 60.0 ml/min; GLUCOSE 132 mg/dL (70-105); POTASSIUM SERUM 3.3 mEq/L (3.5-5.1); SODIUM SERUM 142 mEq/L (136-145)
[2018-09-30 05:38] LABS: HEMATOCRIT 35.6 % (41.0-60); HEMOGLOBIN 11.1 gm/dL (12-16); MEAN CELL VOLUME 73.9 fl (81-100); MEAN CORPUSCULAR HGB CONC 31.1 pg (28.0-36.0); PLATELET COUNT 493 Th/cmm (150-400); RED BLOOD COUNT 4.81 Mil/cmm (3.80-5.10); RED CELL DISTRIBUTION WIDTH 28.4 % (11.5-20.0); WHITE BLOOD COUNT 8.9 Th/cmm (4.8-10.8)
[2018-09-30 07:07] LABS: BAND NEUTROPHILE 0 % (0-10); BASOPHIL 0 % (0-3); EOSINOPHIL 7 % (0-5); LYMPHOCYTE 20 % (20-50); MONOCYTE 6 % (2-10); NEUTROPHILS 67 % (40-80)
[2018-09-30 07:09] LABS: ANISOCYTOSIS 2+; PLATELET ESTIMATE INCREASED PLATELETS (NORMAL)
[2018-09-30] MEDS: Lactobacillus Rhamnosus GG 15 Billion CFU CAP.SPRINK PO SCH (09:00)
--- NOTE | 2018-09-30 09:53 | GI Progress Note ---
Subjective - Review of Systems Service Date: 09/30/18 Subjective: No overnight events, no GI bleed GI OBJECTIVE - Results Result Diagrams: 09/30/18 04:05 09/30/18 04:05 Recent Labs: Laboratory Last Values WBC 8.9 Th/cmm (4.8-10.8) 09/30/18 04:05 RBC 4.81 Mil/cmm (3.80-5.10) 09/30/18 04:05 Hgb 11.1 gm/dL (12-16) L 09/30/18 04:05 Hct 35.6 % (41.0-60) L 09/30/18 04:05 MCV 73.9 fl (81-100) L 09/30/18 04:05 MCH 23.0 pg (27.0-31.0) L 09/30/18 04:05 MCHC Differential 31.1 pg (28.0-36.0) 09/30/18 04:05 RDW 28.4 % (11.5-20.0) H 09/30/18 04:05 Plt Count 493 Th/cmm (150-400) H 09/30/18 04:05 MPV 7.9 fl 09/30/18 04:05 Add Manual Diff YES 09/30/18 04:05 Neutrophils % TRAVEL AGENT 09/30/18 04:05 Band Neutrophils % 0 % (0-10) 09/30/18 04:05 Lymphocytes % TRAVEL AGENT 09/30/18 04:05 Monocytes % TRAVEL AGENT 09/30/18 04:05 Eosinophils % TRAVEL AGENT 09/30/18 04:05 Basophils % TRAVEL AGENT 09/30/18 04:05 Neutrophils (Manual) 67 % (40-80) 09/30/18 04:05 Lymphocytes 20 % (20-50) 09/30/18 04:05 Monocytes 6 % (2-10) 09/30/18 04:05 Eosinophils 7 % (0-5) H 09/30/18 04:05 Basophils 0 % (0-3) 09/30/18 04:05 Platelet Estimate INCREASED PLATELETS (NORMAL) 09/30/18 04:05 Anisocytosis 2+ 09/30/18 04:05 Microcytosis 2+ 09/30/18 04:05 Ovalocytes 1+ 09/29/18 05:40 Rouleaux 1+ 09/28/18 05:10 PT 10.0 SECONDS (9.5-11.5) 09/27/18 04:30 INR 0.96 (0.5-1.4) 09/27/18 04:30 PTT (Actin FS) 21.5 SECONDS (26.0-38.0) L 09/25/18 18:50 Sodium 142 mEq/L (136-145) 09/30/18 04:05 Potassium 3.3 mEq/L (3.5-5.1) L 09/30/18 04:05 Chloride 104 mEq/L (98-107) 09/30/18 04:05 Carbon Dioxide 31.3 mEq/L (21.0-31.0) H 09/30/18 04:05 Anion Gap 10.0 (7.0-16.0) 09/30/18 04:05 BUN 3 mg/dL (7-25) L 09/30/18 04:05 Creatinine 0.4 mg/dL (0.6-1.2) L 09/30/18 04:05 Est GFR ( Amer) > 60.0 ml/min (>90) 09/30/18 04:05 Est GFR (Non-Af Amer) > 60.0 ml/min 09/30/18 04:05 BUN/Creatinine Ratio 7.5 09/30/18 04:05 Glucose 132 mg/dL (70-105) H 09/30/18 04:05 Whole Bld Lactic Acid 1.66 mmol/L (0.60-1.99) 09/25/18 18:50 Calcium 9.0 mg/dL (8.6-10.3) 09/30/18 04:05 Magnesium 2.2 mg/dL (1.9-2.7) 09/28/18 05:10 Iron 16 ug/dL (27-159) L 09/26/18 09:30 TIBC 475 ug/dL (250-450) H 09/26/18 09:30 Iron Saturation 3 % (15-55) L 09/26/18 09:30 Unsaturated IBC 459 ug/dL (131-425) H 09/26/18 09:30 Ferritin 5 ng/mL (15-150) L 09/26/18 09:30 Total Bilirubin 0.4 mg/dL (0.3-1.0) 09/28/18 05:10 AST 20 U/L (13-39) 09/28/18 05:10 ALT 23 U/L (7-52) 09/28/18 05:10 Alkaline Phosphatase 83 U/L (34-104) 09/28/18 05:10 Creatine Kinase 46 U/L (30-223) 09/25/18 18:50 Troponin I 0.18 ng/mL (0.01-0.05) H* D 09/25/18 18:50 B-Natriuretic Peptide 116.0 pg/mL (5.0-100.0) H 09/28/18 05:10 Total Protein 5.5 gm/dL (6.0-8.3) L 09/28/18 05:10 Albumin 3.0 gm/dL (3.7-5.3) L 09/28/18 05:10 Globulin 2.5 gm/dL 09/28/18 05:10 Albumin/Globulin Ratio 1.2 (1.0-1.8) 09/28/18 05:10 Vitamin B12 433 pg/mL (232-1245) 09/26/18 09:30 Folic Acid 9.9 ng/mL (>3.0) 09/26/18 09:30 TSH 3.62 uIU/ml (0.34-5.60) 09/26/18 09:30 Urine Source MIDSTREAM 09/26/18 11:15 Urine Color YELLOW 09/26/18 11:15 Urine Clarity CLEAR (CLEAR) 09/26/18 11:15 Urine pH 6.5 (4.6 - 8.0) 09/26/18 11:15 Ur Specific [place] <= 1.005 (1.005-1.030) 09/26/18 11:15 Urine Protein NEGATIVE mg/dL (NEGATIVE) 09/26/18 11:15 Urine Glucose (UA) NEGATIVE mg/dL (NEGATIVE) 09/26/18 11:15 Urine Ketones NEGATIVE mg/dL (NEGATIVE) 09/26/18 11:15 Urine Blood NEGATIVE (NEGATIVE) 09/26/18 11:15 Urine Nitrate NEGATIVE (NEGATIVE) 09/26/18 11:15 Urine Bilirubin NEGATIVE (NEGATIVE) 09/26/18 11:15 Urine Urobilinogen 0.2 E.U./dL (0.2 - 1.0) 09/26/18 11:15 Ur Leukocyte Esterase NEGATIVE (NEGATIVE) 09/26/18 11:15 Rheumatoid Factor 84.1 IU/mL (0.0-13.9) H 09/25/18 21:18 Blood Type O POSITIVE 09/25/18 18:50 Antibody Screen NEGATIVE 09/25/18 18:50 Crossmatch See Detail 09/25/18 18:50 - Physical Exam Vitals and I&O: Vital Signs Temp 96.9 F 09/30/18 08:00 Pulse 86 09/30/18 08:00 Resp 18 09/30/18 08:00 BP 111/81 09/30/18 08:00 Pulse Ox 90 09/30/18 08:00 Intake & Output 09/29/18 09/30/18 09/30/18 18:59 06:59 18:59 Intake Total 1058 1445 Output Total 2 Balance 1058 1443 Weight (lbs) 64.864 kg 64.864 kg Intake: Intake, IV Amount 998 1445 Cefepime 1 gm In Dextrose 100 5% 50 ml @ 100 mls/hr IV Q12H [facility] Rx#:[id number] D5-0.45NS 1,000 ml @ 60 998 1345 mls/hr IV .[id number] [facility] Rx #:[id number] Oral 60 Output: Urine 2 Other: # Voids 2 # Bowel Movements 0 0 Weight Source Bedscale Bedscale Active Medications: Current Medications Acetaminophen (Tylenol) 650 mg PO Q4H PRN PRN Reason: Pain Or Fever above 101 Stop: 11/24/18 20:43 Last Admin: 09/26/18 16:19 Dose: 650 mg Al Hydrox/Mg Hydrox/Simethicone (Maalox) 30 ml PO Q4H PRN PRN Reason: gi upset Stop: 11/24/18 20:39 Albuterol Sulfate (Albuterol 2.5mg/3ml Neb Ud) 2.5 mg HHN Q2HRT PRN PRN Reason: Shortness of Breath or Wheeze Stop: 11/24/18 20:40 Last Admin: 09/28/18 12:42 Dose: 2.5 mg Artificial Tears (Artificial Tears Ophth Soln) 1 drop EACH EYE BID PRN PRN Reason: DRY EYES Stop: 11/25/18 09:08 Benztropine Mesylate (Cogentin) 0.5 mg PO BID [facility] Stop: 11/25/18 08:59 Last Admin: 09/30/18 09:00 Dose: 0.5 mg Bisacodyl (Dulcolax 10 Mg Supp) 10 mg RC DAILY PRN PRN Reason: Constipation Stop: 11/24/18 20:39 Docusate Sodium (Colace) 100 mg PO DAILY [facility] Stop: 11/25/18 08:59 Last Admin: 09/30/18 09:00 Dose: 100 mg Guaifenesin (Robitussin) 200 mg PO Q4HR PRN PRN Reason: Cough or Congestion Stop: 11/24/18 20:43 Dextrose/Sodium Chloride (D5-0.45ns) 1,000 mls @ 60 mls/hr IV .[id number] [facility] Stop: 11/25/18 12:44 Last Infusion: 09/30/18 06:00 Dose: 60 mls/hr Cefepime HCl 1 gm/ Dextrose 50 mls @ 100 mls/hr IV Q12H [facility] Stop: 11/26/18 12:59 Last Infusion: 09/30/18 01:10 Dose: Infused Ferric Sodium Gluconate Complex 125 mg/ Sodium Chloride 110 mls @ 100 mls/hr IV Q24HR [facility] Stop: 10/05/18 16:05 Last Admin: 09/29/18 15:36 Dose: 100 mls/hr Lactobacillus Rhamnosus (Culturelle 15b) 1 each PO DAILY [facility] Stop: 11/28/18 08:59 Last Admin: 09/30/18 09:00 Dose: 1 each Magnesium Hydroxide (Milk Of Magnesia) 30 ml PO DAILY PRN PRN Reason: Constipation Stop: 11/24/18 20:39 Miscellaneous (Probiotic Screen) 1 ea MC PRN PRN PRN Reason: PROTOCOL Stop: 11/27/18 09:28 Mupirocin (Bactroban Oint) 1 appl NS BID [facility] Stop: 10/02/18 09:01 Last Admin: 09/29/18 16:43 Dose: 1 appl Nitroglycerin (Nitrostat) 0.4 mg SL Q5MIN PRN PRN Reason: Chest Pain Stop: 11/24/18 20:43 Ondansetron HCl (Zofran) 4 mg IV Q8H PRN PRN Reason: Nausea / Vomiting Stop: 11/24/18 20:43 Pantoprazole Sodium (Protonix) 40 mg IVP BID [facility] Stop: 11/24/18 21:59 Last Admin: 09/30/18 09:00 Dose: 40 mg Risperidone (Risperdal) 0.25 mg PO BID [facility]; Protocol Stop: 11/25/18 08:59 Last Admin: 09/30/18 09:00 Dose: 0.25 mg Zolpidem Tartrate (Ambien) 10 mg PO HS PRN PRN Reason: Insomnia Stop: 11/24/18 20:40 General: Alert, Oriented x3 Cardiovascular: Regular rate Abdomen: Bowel sounds, no Soft, no Tender, no Hepatomegaly, no Splenomegaly, no Distended, no Rebound - Procedures Procedures: Procedures Procedure Code Date BLOOD TRANSFUSION SERVICE 79989 11/15/16 EGD BIOPSY SINGLE/MULTIPLE 67588 09/03/15 EXCISION OF SMALL INTESTINE, ENDO, DIAGN [id number] 09/03/15 TRANSFUSE NONAUT RED BLOOD CELLS IN PERIPH VEIN, PERC [id number] 09/25/18 Assessment/Plan - Assessment Assessment: 58 YO FEMALE WITH ANEMIA HAD EGD AND COLO SIG FINDING WAS THE HIATAL HERNIA AND UZAIR ULCER 1.CONT PROTONIX AND IRON 2.FOLLOW H/H 3.CONSIDER REPAIR OF HIATAL HERNIA if she continues to have anemia despite iron replacement 4. Follow up final pathology
--- NOTE | 2018-09-30 12:17 | Pathology Report ---
[id number] Collection Date: 09/27/2018 Surgeon: Dr. Ananya Christensen. Specimen Description: 1. Duodenum biopsy. 2. Antrum biopsy. 3. Gastric ulcer biopsy. Gross Description: Part I: Received in formalin are two blanton soft tissue fragments, ranging from 0.1 to 0.2 cm in greatest dimension. Totally submitted in one cassette labeled A. Gross Description: Part II: Received in formalin are two blanton soft tissue fragments, ranging from 0.1 to 0.2 cm in greatest dimension. Totally submitted in one cassette labeled B. Gross Description: Part III: Received in formalin are two blanton soft tissue fragments, ranging from 0.1 cm to 0.2 cm in greatest dimension. Totally submitted in one cassette labeled C. Microscopic Description: Part I: The histologic sections show duodenal mucosa with intact intestinal villi, showing no evidence for villous abnormality. Diagnoses: Part I: No evidence for celiac disease/sprue (duodenal biopsy). Microscopic Description: Part II: The histologic sections show gastric mucosa with chronic inflammation present consisting of lymphocytes and plasma cells. The Giemsa stain shows no evidence for Helicobacter pylori. Diagnoses: Part II: 1. Chronic gastritis, antrum biopsy. 2. The Giemsa stain shows no evidence for Helicobacter pylori. Microscopic Description: Part III: The histologic sections show gastric mucosa with chronic inflammation present consisting of lymphocytes and plasma cells. The Giemsa stain shows no evidence for Helicobacter pylori. Diagnoses: Part III: 1. Chronic gastritis, gastric ulcer biopsy. 2. The Giemsa stain shows no evidence for Helicobacter pylori. [facility]# [id number] [facility]
[2018-09-30] MEDS ORDERED: Potassium Chloride 20 mEq ER Tab PO ONE (12:19)
[2018-09-30] MEDS: Sodium Ferric Gluconate 125 MG in Sodium Chloride 0.9% 100 ML IV SCH (14:44)
--- NOTE | 2018-09-30 16:06 | Discharge Summary ---
DATE OF DISCHARGE: 09/30/2018 CHIEF COMPLAINT: Severe anemia. FINAL DIAGNOSES: Severe anemia secondary to hiatal hernia, Lior ulcer, status post EGD and colonoscopy; thrombocytosis, pneumonia; history of stroke, psych disorder, history of rheumatoid arthritis. HISTORY: This is a 58-year-old female with a long history of anemia, baseline hematocrit of 8. The patient noted to have a hemoglobin of 3. Admitted through the ER and had 4 unit of blood transfusion. PHYSICAL EXAMINATION: VITAL SIGNS: Blood pressure 116/84, respirations 18, pulse 70. GENERAL: An elderly female, appears her stated age. NECK: Supple. No mass. LUNGS: Equal breath sounds with few rhonchi. HEART: Regular rate and rhythm. Systolic ejection murmur. ABDOMEN: Soft, globular. EXTREMITIES: Positive excoriation. HOSPITAL COURSE: The patient was admitted to ICU initially and given 4 units of blood transfusion and monitor for fluid overload and respiratory distress. The patient's hemoglobin has improved to 11, white count did come up to 18. Chest x-ray showed possible infiltrates and congestion. The patient started on diuretics as well as IV antibiotic. The patient's condition has improved. The colonoscopy seen by Dr. Polanco as well as Hematology and given ____. DISCHARGE INSTRUCTIONS: The patient to continue IV antibiotic and IV iron at the nursing facility. JOB# [id number]
[2018-09-30] MEDS ORDERED: Pantoprazole 40 mg EC Tab PO SCH (17:00)
== END 2018-09-30 14:20 | DRG 241 ==
LOC: ER 18:16 → ICU 20:58 → TELE 09-26 18:12
PROVIDERS: ADMIT Internal Medicine; ATTEND Internal Medicine
PROC: 30233N1 Transfusion of Nonautologous Red Blood Cells into Peripheral Vein, Percutaneous Approach (ICD-10-PCS; principal; 2018-09-25)
PROC: 0DB98ZX Excision of Duodenum, Via Natural or Artificial Opening Endoscopic, Diagnostic (ICD-10-PCS; 2018-09-27)
PROC: 0DB78ZX Excision of Stomach, Pylorus, Via Natural or Artificial Opening Endoscopic, Diagnostic (ICD-10-PCS; 2018-09-27)
PROC: 0DB68ZX Excision of Stomach, Via Natural or Artificial Opening Endoscopic, Diagnostic (ICD-10-PCS; 2018-09-27)
PROC: 0DJD8ZZ Inspection of Lower Intestinal Tract, Via Natural or Artificial Opening Endoscopic (ICD-10-PCS; 2018-09-27)
DX: K25.4 Chronic or unspecified gastric ulcer with hemorrhage (principal); J18.9 Pneumonia, unspecified organism; K57.31 Diverticulosis of large intestine without perforation or abscess with bleeding; E11.65 Type 2 diabetes mellitus with hyperglycemia; K44.9 Diaphragmatic hernia without obstruction or gangrene; D47.3 Essential (hemorrhagic) thrombocythemia; M06.9 Rheumatoid arthritis, unspecified; E78.5 Hyperlipidemia, unspecified; D63.8 Anemia in other chronic diseases classified elsewhere; D50.9 Iron deficiency anemia, unspecified; K64.8 Other hemorrhoids; Z86.73 Personal history of transient ischemic attack (TIA), and cerebral infarction without residual deficits
CPT/HCPCS: 36415-UA; 71045-TC; 80048-TC; 80053-TC; 81003-TC; 82550-TC; 82607-90; 82728-90; 82746-90; 83036-90; 83540-90; 83550-90; 83605; 83735-TC; 83880-TC; 84443-TC; 84484-TC; 85007-TC; 85025-TC; 85610-TC; 85730-TC; 86430-90; 86850-TC; 86900-TC; 86901-TC; 86922-TC; 93005; 93970-TC-50; 93971-TC-RT; 94640; 94760; C9113; J0692; J2704; J2916; J7030; J7613; P9016; X6614; Z7610